=== PATIENT | female | born 1970 | race Asian ===

== ENCOUNTER 2024-06-27 14:15 | Outpatient (AMB) | payer OTHER, SELFPAY ==
--- NOTE | 2024-06-27 14:27 | A.OFFPC_ITS ---
Vital Signs 06/27/24 14:38 Height 4 ft 11.84 in Weight 160 lb BMI 31.4 BP 122/84 Blood Pressure Location Rt brachial Position Sitting Respiration 14 Pulse 77 Pulse Source Pulse Oximeter Pulse Oximetry (%) 98 Oxygen Delivery Method Room Air Intake Visit Reasons: Est. Care Intake Note: New patient visit Allergies No Known Allergies Allergy (Verified 06/27/24 14:28) Medication List - Last Reconciled 06/27/24 by Roselyn Mosley PA-C atorvastatin 20 mg PO DAILY cholecalciferol (vitamin D3) (Vitamin D3) 50 mcg PO DAILY glipizide mg PO BID levothyroxine mcg PO DAILY lisinopril 2.5 mg PO DAILY loratadine (Allergy Relief (loratadine)) 10 mg PO DAILY metformin 1,000 mg PO BID Tobacco use date assessed: 06/27/24 Dental Screening Dental Screen Date: 06/27/24 Did you have a dental visit in the last 12 months?: Yes Was dental information given to patient?: Patient declined HPI Est. Care HPI Details patient is a 54-year-old female who presents today to [facility]. She is transferring from [facility]. She has a significant past medical history of hypertension, hyperlipidemia, diabetes , hypothyroidism, vitamin d deficiency and allergies. She was last seen about 6 months ago. 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 She states that it feels like it comes from the shoulder and runs down her arm. At times it comes from the elbow. The pain is worse with certain movements. The pain is described as a burning pain. No neck pain or weakness. She denies any trauma. She has seen ortho in the past and states she was given an elbow strap and PT. She felt that the elbow brace and wrist brace were helpful at time. Endo: dm- Last A1c was approx 7 per pt. dx around 2009. Never had DM education. Denies any hypoglycemic events. She checks bs about 1-2 a week. No sx of hyper/hypoglycemia. BS are around 230 whenc she checks. She is currently on metformin 1000 mg twice a day and glipizide 5 mg bid. hypothyroid- last TSH was WNL (does not know the number). Currently on levothyroxine. Does not understand why she is on this medication. CV: Blood pressure today in the office is 122/84. She is currently on lisinopril 2.5 mg daily. Cholesterol is managed with atorvastatin 20 mg. 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 1. Little interest or pleasure in doing things: not at all 2. Feeling down, depressed, or hopeless: not at all 3. Trouble falling or staying asleep, or sleeping too much: not at all 4. Feeling tired or having little energy: not at all 5. Poor appetite or overeating: not at all 6. Feeling bad about yourself - or that you are a failure or have let yourself or your family down: not at all 7. Trouble concentrating on things, such as reading the newspaper or watching television: not at all 8. Moving or speaking so slowly that other people could have noticed. Or the opposite - being so fidgety or restless that you have been moving around a lot more than usual: not at all 9. Thoughts that you would be better off or of hurting yourself in some way: not at all Total score: 0 Depression Screening Interpretation: Negative Depression Screening Done: Yes 67719 - PHQ-9 Billing: Yes Source: Developed by Drs. Jarrod Gonzales, Dannielle Lake, Sam Celestin and colleagues, with an educational kristofer from [employer]. Thrive Questionnaire Date Thrive assessed: 06/27/24 I am a: Patient What is your living situation today?: I choose not to answer this question Within the past 12 months, did the food you bought not last and you didn't have the money to get more?: I choose not to answer this question Within the past 12 months, did you worry whether your food would run out before you got money to buy more?: I choose not to answer this question Do you have trouble paying for medicines?: No Do you have trouble getting transportation to medical appointments?: I choose not to answer this question Do you have trouble paying your heating and electricity bill?: I choose not to answer this question Do you have trouble taking care of your child, family member or friend?: I choose not to answer this question Do you have trouble with day-to-day activities such as bathing, preparing meals, shopping, managing finances, etc.?: I choose not to answer this question Are you currently unemployed and looking for a job?: I choose not to answer this question Are you interested in more education?: I choose not to answer this question Please select the resources that you would like help with: None THRIVE Score: 0 BRAEDEN-7 AMB Questionnaire BRAEDEN-7 Date BRAEDEN - 7 assessed: 06/27/24 Feeling nervous, anxious, or on edge: 0 = Not at all Not being able to stop or control worryin = Not at all Worrying too much about different things: 0 = Not at all Trouble relaxin = Not at all Being so restless that it is hard to sit still: 0 = Not at all Becoming easily annoyed or irritable: 0 = Not at all Feeling afraid as if something awful might happen: 0 = Not at all Total BRAEDEN-7 score (0-4 normal; 5-9 mild; 10-14 moderate; 15-21 severe): 0 Source: Developed by Drs. Jarrod Gonzales, Dannielle Lake, Sam Celestin and colleagues, with an educational kristofer from [employer]. BRAEDEN-7 Assessment Billing BRAEDEN-7 Assessment Tool: BRAEDEN-7 Assessment 85477 Physical exam (Primary Care) Depression Screening Interpretation: Negative Thrive Assessment: Date of Thrive Assessment Date Thrive assessed 06/27/24 06/27/24 14:16 Const Orientation/consciousness: patient oriented x3 HENMT Ears: hearing grossly normal bilaterally Neck Thyroid: Thyroid normal Lymphatic: no lymphadenopathy noted Resp Auscultation: clear to auscultation bilaterally Cardio Rate: regular rate Rhythm: regular rhythm Heart sounds: S1 normal heart sound present and S2 normal heart sound present GI Inspection: Yes normal to inspection Palpation (GI): Soft to palpation and Other GI palpation findings present (nontender, no cva tenderness) Auscultation: normoactive bowel sounds Rectal Exam - Female: deferred Skin General skin exam: no rashes or lesions noted Neuro General: patient oriented x3, gait normal and no focal motor deficits Coding Level of Care Code New Pt Level 5 (38253) Complex EM visit Add On G2211 Diagnoses Dyslipidemia E78.5 Uncontrolled type 2 diabetes mellitus with hyperglycemia, without long-term current use of insulin E11.65 HTN (hypertension) I10 Hypothyroid E03.9 Left shoulder pain M25.512 Left elbow pain M25.522 Additional Codes BRAEDEN-7 Assessment Billing - BRAEDEN-7 Assessment Tool: BRAEDEN-7 Assessment 86599 ([id number]) PHQ-9 - 93080 - PHQ-9 Billing: Yes ([id number]) Assessment & Plan Assessment & Plan (1) Dyslipidemia: Code(s): E78.5 - Hyperlipidemia, unspecified Category: Medical Plan: continue atorvastatin will check lipids and lfts (2) Uncontrolled type 2 diabetes mellitus with hyperglycemia, without long-term current use of insulin: Code(s): E11.65 - Type 2 diabetes mellitus with hyperglycemia Category: Medical Plan: continue glipizide and metformin will start trulicity. discussed risks and benefits and adverse effects such as n/v, Pancreatitis and increased risk of thyroid cancer. We reviewed the differences between type 1 and type 2 diabetes. Signs and symptoms of hyper and hypoglycemia that would require emergent medical treatment. She does have testing supplies at home. (3) HTN (hypertension): Code(s): I10 - Essential (primary) hypertension Category: Medical Plan: wnl continue current treatment plan (4) Hypothyroid: Code(s): E03.9 - Hypothyroidism, unspecified Category: Medical Plan: tsh ordered today continue levothyroxine We discussed hypothyroidism. (5) Left shoulder pain: Code(s): M25.512 - Pain in left shoulder Category: Medical Plan: see below (6) Left elbow pain: Code(s): M25.522 - Pain in left elbow Category: Medical Plan: xrays ordered referral to ortho Plan 75 minutes was spent today in face to face time discussing past medical history, current medications, health maintenance and new concerns. mammogram ordered colonoscopy ordered Orders: Orders MM screening mammo BI Today Z12.31 - Encounter for screening mammogram for malignant neoplasm of breast Complete Blood Count Auto Diff Today E03.9 - Hypothyroidism, unspecified, E11.65 - Type 2 diabetes mellitus with hyperglycemia, E78.5 - Hyperlipidemia, unspecified, I10 - Essential (primary) hypertension Comprehensive [place]. Panel Fast Today E03.9 - Hypothyroidism, unspecified, E11.65 - Type 2 diabetes mellitus with hyperglycemia, E78.5 - Hyperlipidemia, unspecified, I10 - Essential (primary) hypertension Hemoglobin A1c Today E03.9 - Hypothyroidism, unspecified, E11.65 - Type 2 diabetes mellitus with hyperglycemia, E78.5 - Hyperlipidemia, unspecified, I10 - Essential (primary) hypertension, R73.01 - Impaired fasting glucose TSH reflex Free T4 Today E03.9 - Hypothyroidism, unspecified, E11.65 - Type 2 diabetes mellitus with hyperglycemia, E78.5 - Hyperlipidemia, unspecified, I10 - Essential (primary) hypertension Lipid Panel Today E03.9 - Hypothyroidism, unspecified, E11.65 - Type 2 diabetes mellitus with hyperglycemia, E78.5 - Hyperlipidemia, unspecified, I10 - Essential (primary) hypertension Microalbumin, Random (w Creat) Today E03.9 - Hypothyroidism, unspecified, E11.65 - Type 2 diabetes mellitus with hyperglycemia, E78.5 - Hyperlipidemia, unspecified, I10 - Essential (primary) hypertension XR DEXA axial skeleton Today E03.9 - Hypothyroidism, unspecified, Z78.0 - Asymptomatic menopausal state XR shoulder LT min 2V Today M25.512 - Pain in left shoulder, M25.522 - Pain in left elbow XR elbow LT min 3V Today M25.512 - Pain in left shoulder, M25.522 - Pain in left elbow Referrals MOTH EXTERMINATOR Referral Z01.419 - Encounter for gynecological examination (general) (routine) without abnormal findings Medications: New metformin 1,000 mg PO BID 180 tabs 1RF dulaglutide (Trulicity) 0.75 mg (0.5 mL) subcut QWEEK 2 mL 3RF atorvastatin 20 mg PO DAILY 90 tabs 1RF glipizide 5 mg PO BID 180 tabs 1RF lisinopril 2.5 mg PO DAILY 90 tabs 1RF levothyroxine 50 mcg PO DAILY 90 tabs 1RF
[2024-06-27 14:38] VITALS: BP 122/84; PULSE 77; RESP 14; O2SAT 98; BMI 31.4
--- OUTSIDE RECORDS SUMMARY | 2024-06-27 18:08 | XMS_ITS | Clinical Summary ---
Author Organization [facility] Address [address] [place] [address] Phone Care Team Providers Care Switchboard Operator Helper Name Role Phone Rosa Hanson Primary Care Provider [phone] Social History Tobacco Use Types Packs/Day Years Used Date Smoking Tobacco: Never Assessed Comments Unknown Sex and Gender Information Value Date Recorded Sex Assigned at Not on file Legal Sex Female 2:53 PM EST Gender Identity Not on file Sexual Orientation Not on file Plan of Treatment Upcoming Encounters Date Type Department Care Team (Late st Contact Info) Description 08/21/2024 2:00 PM EDT Appointment [facility] Endoscopy [address] [place] [id number] Holger Corea MD [address] [place] [id number] Health Maintenance Due Date Last Done Comments DTaP,Tdap,and Td Vaccines (1 - Tdap) 1991 Hepatitis B Vaccines (1 of 3 - 19+ 3-dose series) 1991 Cervical Cancer Screening: P ap Smear 1993 Breast Cancer Screening 05/14/2021 05/14/2019 Pneumococcal Vaccine: 50+ Ye ars (1 of 1 - PCV) 2022 Zoster Vaccines (1 of 2) 2022 COVID-19 Vaccine ( - 2023-2 5 season) 2023 Influenza Vaccine (#1) 2023 Colorectal Cancer Screening: Colonoscopy 03/10/2024 Depression Screening 03/10/2024 HIV Screening 03/10/2024 Hepatitis C Screening 03/10/2024 Social Influencers of Health Screening 03/10/2024 HIB Vaccines Aged Out No longer eligi ble based on patient's age to complete this topic HPV Vaccines Aged Out No longer eligi ble based on patient's age to complete this topic Hepatitis A Vaccines Aged Out No long er eligible based on patient's age to complete this topic IPV Vaccines Aged Out No longer eligi ble based on patient's age to complete this topic MMR Vaccines Aged Out No longer eligi ble based on patient's age to complete this topic Meningococcal ACWY Vaccine Aged Out N o longer eligible based on patient's age to complete this topic Meningococcal B Vacine Aged Out No lo nger eligible based on patient's age to complete this topic Pneumococcal Vaccine: Pediat rics (0 to 5 Years) and At-Risk Patients (6 to 64 Years) Aged Out No longer eligi ble based on patient's age to complete this topic RSV Immunization Patients Un anastasiia 20 months Aged Out No longer eligible b ased on patient's age to complete this topic Varicella Vaccines Aged Out No longer eligible based on patient's age to complete this topic Procedures Procedure Name Priority Date/Time Associated Diagnosis Comments [facility] SCREENING DIGITAL Routine 05/14/2019 1:37 PM EST Encounter for screening mammogram for malignant neoplasm of breast from Last 3 Months or Most Recently Relevant to Health Maintenance Results * [facility] SCREENING DIGITAL (05/14/2019 1:37 PM EST) Anatomical Region Laterality Modality Mammography 05/14/2019 10:2 2 AM EST Narrative 05/14/2019 1:37 PM EST [facility] Diagnostic Imaging Department [address] [place] [address] Patient: ??RADHA,MAN M ?/Age/Sex: 1970 - Unit#: ??[id number] ? Location/Status: ??SPDIMAM/REG CLI ? Mnemonic/Ordering Site: ??DIGSC/SPMAM Ordering Physician: ??SHIVAM MERCER Peter Screening Digital - 05/14/19 - 1045 History: Bilateral breast cancer screening. Technique: Bilateral digital mammography. Conventional CC and MLO projections with tomosynthesis MLO views and computer aided detection. Findings: Comparison: Radiology and Imaging incorporated [facility] 07/04/2018 and 05/12/2017. Breast tissue is mostly fatty replaced (category a density) bilaterally (as calculated by [employer] software). ??There are benign calcifications bilaterally. ?? There is no suspicious group of microcalcification, no suspicious mass, architectural distortion or suspicious asymmetry. Impression: ??No evidence of malignancy. BIRADS category 2, benign findings, 3342F 54258, [address]281 Note: Patient information entered ??into a reminder system with a target due date for the next mammogram; PQRI II 9867G Dictating Physician: ??BOY GARZA MD Electronically Signed by: ??BOY GARZA MD Dic Date/Time: ??05/14/19 1336 Sign date/Time: ??05/14/19 1337 Procedure Note Boy Garza - 04/06/2022 [facility] Diagnostic Imaging Department [address] [place] [address] Patient: JERODVINCENTMARTIN /Age/Sex: 1970 - 49 - F Unit#: [id number] Location/Status: SPDIMAM/REG CLI [facility] Ordering Physician: SHIVAM MERCER Peter Screening Digital - 05/14/19 - 1045 History: Bilateral breast cancer screening. Technique: Bilateral digital mammography. Conventional CC and MLOprojections with tomosynthesis MLO views and computer aided detection. Findings: Comparison: Radiology and Imaging incorporated [facility] 07/04/2018 and 05/12/2017. Breast tissue is mostly fatty replaced (category a density) bilaterally(as calculated by [employer] software). There are benigncalcifications bilaterally. There is no suspicious group of microcalcification, nosuspicious mass, architectural distortion or suspicious asymmetry. Impression: No evidence of malignancy. BIRADS category 2, benign findings, 3342F 08117, [address]52 Note: Patient information entered into a reminder system with a targetdue date for the next mammogram; PQRI II 7083F Dictating Physician: BOY GARZA MD Electronically Signed by: BOY GARZA MD Dic Date/Time: 05/14/19 1336 Sign date/Time: 05/14/19 1337 Result [facility] Shivam GOLDEN IMG BI PROCEDURES Final Result from Last 3 Months or Most Recently Relevant to Health Maintenance Insurance [facility] PUBLIC PLANS MEDICAID - [place] Care Teams Switchboard Operator Helper Relationship Specialty Start Date End Date Rosa Hanson PCP - General 11/22/23
--- OUTSIDE RECORDS SUMMARY | 2024-06-27 18:08 | XMS_ITS | Clinical Summary ---
Author Organization [facility] Address [address] [place] [address] Care Team Providers [employer] Custodian Name Role Phone Rosa Hanson NP Primary Care Provider [phone] Source Comments PLEASE NOTE, if this patient is a minor, it may be UNLAWFUL to discuss sensitive information that is contained in these records (such as FAMILY PLANNING, MENTAL HEALTH or SUBSTANCE ABUSE) with the minor patient's parent or other person without the patient's specific authorization.[facility] Allergies No known active allergies Medications blood-glucose meter kit (FREESTYLE LITE METER) monitoring kitIndications: Uncontrolled type 2 diabetes mellitus without complication, without long-term current use of insulin once daily Dx. E11.65 - Blood sugar check daily and prn 1 Kit 7 Active alcohol swabsIndication s:Type 2 diabetes mellitus without complication, without long-term current use of insulin ([facility]) Dx. E11.65 - Blood sugar check daily 100 Each 11 3 Active blood sugar diagnostic (FREESTYLE TEST) stripsIndicatio ns:Type 2 diabetes mellitus without complication, without long-term current use of insulin ([facility]) Dx. E11.65 - Blood sugar check daily . FREESTYLE LITE Test strips 100 Each 11 3 Active lancetsIndicati ons:Type 2 diabetes mellitus without complication, without long-term current use of insulin ([facility]) Dx. E11.65 - Blood sugar check daily FREESTYLE LANCETS 100 Each 11 3 Active latanoprost (XALATAN) 0.005 % ophthalmic solutionIndicat ions:Narrow angle glaucoma suspect of both eyes INSTILL 1 DROP IN BOTH EYES EVERY EVENING 2.5 mL 3 3 Active diphenhydrAMINE (BENADRYL) 25 mg capsuleIndicati ons:Urticaria Take 1 Capsule by mouth every 6 (six) hours as needed for itching 60 Capsule 4 Active lisinopriL 2.5 mg tabletIndicatio ns:Prescription refill,Type 2 diabetes mellitus without complication, without long-term current use of insulin ([facility]) Take 1 Tablet by mouth once daily 90 Tablet 1 4 Active loratadine (CLARITIN) 10 mg tabletIndicatio ns:Generalized pruritus Take 1 Tablet by mouth once daily as needed for allergies 90 Tablet 1 4 Active atorvastatin (LIPITOR) 20 mg tabletIndicatio ns:Prescription refill Take 1 Tablet by mouth once daily 90 Tablet 1 4 Active glipiZIDE (GLUCOTROL) 5 mg tabletIndicatio ns:Prescription refill,Type 2 diabetes mellitus without complication, without long-term current use of insulin ([facility]) Take 1 Tablet by mouth 2 (two) times daily before a meal 180 Tablet 1 4 Active metFORMIN (GLUCOPHAGE) 1,000 mg tabletIndicatio ns:Prescription refill,Type 2 diabetes mellitus without complication, without long-term current use of insulin ([facility]) Take 1 Tablet by mouth 2 (two) times daily with a meal 180 Tablet 1 4 Active SITagliptin phosphate (JANUVIA) 100 mg tablet Take 1 Tablet by mouth once daily 90 Tablet 1 4 Active levothyroxine 50 mcg tabletIndicatio ns:Prescription refill Take 1 Tablet by mouth once daily 90 Tablet 1 4 Active cholecalciferol (VITAMIN D-3) 50 mcg (2,000 unit) capsuleIndicati ons:Prescriptio n refill TAKE 1 CAPSULE BY MOUTH EVERY DAY 150 Capsule 4 4 Active Active Problems Problem Noted Date Diagnosed Date Class 1 obesity due to exces s calories with serious comorbidity and body mass index (BMI) of 30.0 to 30.9 in adult 11/21/2023 Astigmatism of both eyes 07/04/2015 Overview (07/04/2015): As per eye examination done 06/15/15 @ [facility].Dr. Carmela Cheung Pinguecula of both eyes 07/04/2015 Overview (07/04/2015): As per eye examination done 06/15/15 @ [facility].Dr. Carmela Cheung Presbyopia 07/04/2015 Overview (07/04/2015): As per eye examination done 06/15/15 @ [facility].Dr. Carmela Cheung Uncontrolled type 2 diabetes mellitus with hyperglycemia ([facility]) 12/24/2014 Overview (12/24/2014): Lab Results Component Value Date HGBA1C 6.8* 12/24/2014 Primary hypertension 02/05/2013 Overview (07/15/2021): [facility] 06/11/16- No pulmonary embolus. Diet controlled currently Hypothyroidism 02/05/2013 Vitamin D deficiency disease 02/05/2013 Immunizations Name Administration Dates Next Due Flu, Adjuvant, 65y+ (Fluad) 01/17/2020 Flu, Preservative Free 03/17/2021,2019,04/03/2019,04/26 Hep B, Adult/Adol (ENERGIX/RECOMBIVAX) 2,09/08/2011,08/09/2011 INFLUENZA, SEASONAL, INJECTABLE 02/22/2016,01/30,04/11/2012 INFLUENZA, SEASONAL, INJECTA BLE, PRESERVATIVE FREE 02/05/2013 MMR (MMR II/Priorix) 07/16/2011,03/01/2011 Moderna COVID-19 Vaccine, re d cap blue label, 12+ Primary Series 09/02/2020,08/01/2020 PNEUMOCOCCAL CONJUGATE PCV 2 0 (Prevnar) 03/22/2023 PNEUMOCOCCAL POLYSACCHARIDE PPV23 05/31/2012 PPD 02/13/2013 TDAP 07/21/2021,07/06/2011,03/01/2011 ZOSTER VACCINE, RECOMBINANT (SHINGRIX) 3,12/15/2022 Family History Relation Name Status Comments Brother 2 Alive Father Mother Sister 1 Alive Social History Tobacco Use Types Packs/Day Years Used Date Smoking Tobacco: Never Smokeless Tobacco: Never Chew Tobacco Cessation:Counseling Given: Not Answered Alcohol Use Standard Drinks/Week Comments No 0 (1 standard drink = 0.6 oz pur e alcohol) Social Connections Answer Date Recorded Connectedness 1 09/26/2023 Financial Resource Strain Answer Date R ecorded Financial Resource Strain 1 2023 Stress Answer Date Recorded Stress 1 09/26/2023 Physical Activity Answer Date Recorded Physical Activity 0 12/08/2018 Food Insecurity Answer Date Recorded Food 1 09/26/2023 Transportation Needs Answer Date Record ed Transportation 1 09/26/2023 Housing Stability Answer Date Recorded Housing 1 09/26/2023 Safety and Environment Answer Date Jose rded Safety 1 09/26/2023 Utilities Answer Date Recorded Utilities 1 09/26/2023 Employment Answer Date Recorded Stress 0 07/05/2021 Comments No Sex and Gender Information Value Date Recorded Sex Assigned at Female 04/26/2017 11:09 AM PST Legal Sex Female 11:36 AM PDT Gender Identity Female 04/26/2017 11:09 AM PST Sexual Orientation Straight 04/26/2017 11 :09 AM PST Occupation Industry Job Start Date Job End Date [employer] Not on file Not on file Not on file Last Filed Vital Signs Vital Sign Reading Time Taken Comments Blood Pressure 122/74 09/26/2023 8:51 AM EDT Pulse 61 09/26/2023 8:51 AM EDT Temperature 36.8 ??C (98.2 ??F) 09/26/2023 8:51 AM ED T Respiratory Rate 18 09/26/2023 8:51 AM EDT Oxygen Saturation 98% 09/26/2023 8:51 AM EDT Inhaled Oxygen Concentration - - Weight 74.4 kg (164 lb) 10/04/2023 9:07 AM EDT Height 157.5 cm (5' 2 ) 10/04/2023 9:07 AM EDT Body Mass Index 30 10/04/2023 9:07 AM EDT Plan of Treatment Health Maintenance Due Date Last Done Comments Dental Examination [address] Colonography 2017 Colonoscopy 2017 Fecal DNA 2017 Flexible Sigmoidoscopy 2017 Retinopathy Screening 05/31/2018 05/31/2017 (Managed by Outside Provider), 06/15/2015 Breast Cancer Screening (Mammogram) 05/14/2021 05/14/2019, 05/14/2019, 07/04/2018, Additional history exists Colorectal Cancer Screening 10/05/2023 FIT/gFOBT 10/05/2023 10/04/2022 Diabetes HbA1c 12/27/2023 09/26/2023, 12/0 09/2022, 09/28/2022, Additional history exists Diabetes Foot Exam 03/22/2024 03/22/2023, 0 12/15/2022, 11/18/2022, Additional history exists Alcohol and Drug Screen 2024 06/22/19 24, 09/28/2022, 07/15/2021, Additional history exists Depression Annual Screen 2024 024, 06/22/2023, 11/02/2017 Pap Smear 06/17/2024 06/17/2021, 12/24/2014 Annual Preventive Care Visit 09/25/202402/2024, 12/15/2022, 12/16/2020, Additional history exists Diabetes Microalbumin (w/Creatinine) 09/25/2024 09/26/2023, 06/02/2022, 12/23/2020, Additional history exists Lipid Screening 09/25/2024 09/26/2023, 05/18, 12/23/2020, Additional history exists Serum Creatinine 09/25/2024 09/26/2023, , 06/02/2022, Additional history exists TSH Monitoring 09/25/2024 09/26/2023, 12/0 09/2022, 09/28/2022, Additional history exists Tobacco Screening 09/25/2024 09/26/2023, , 12/15/2022 Cervical Cancer Screening 06/17/2026 Pap + HPV 06/17/2026 06/17/2021 Imm-DTaP/Tdap/Td (4 - Td or Tdap) 07/22/2031 07/21/2021, 07/06/2011, 03/01/2011 Imm-Hepatitis B Completed 02/09/2012, 08/16, 08/09/2011 HIV Screening Completed 12/23/2020 Hepatitis C Screening Completed 12/23/2020, 015 Imm-Pneumococcal Completed 03/22/2023, 05/31/2012 Imm-Zoster, Recombinant Completed 03/22/2023, 12/15 [id number] Completed 01/17/2024, 01/15, 04/06/2021, Additional history exists Imm-Influenza Completed 01/17/2024, 02/17, 03/17/2021, Additional history exists Cervical Ablation/Cold-Knife Conization Discontinued Cervical Cryotherapy Discontinued Colposcopy Discontinued Endometrial Biopsy Discontinued Excision/Leep Discontinued HPV Genotyping Discontinued Vaginal Pap Discontinued Vulvoscopy Discontinued Procedures Procedure Name Priority Date/Time Associated Diagnosis Comments THYROID CASCADING REFLEX PANEL Routine 09/26/2023 9:38 AM EDT Uncontrolled type 2 diabetes mellitus with hyperglycemia (HCC-CMS) COMPREHENSIVE METABOLIC PANEL Routine 09/26/2023 9:38 AM EDT Uncontrolled type 2 diabetes mellitus with hyperglycemia (HCC-CMS) LIPID PANEL Routine 09/26/2023 9:38 AM EDT Uncontrolled type 2 diabetes mellitus with hyperglycemia ([facility]) MICROALBUMIN/CREATININE RATIO, URINE, RANDOM Routine 09/26/2023 9:38 AM EDT Uncontrolled type 2 diabetes mellitus with hyperglycemia ([facility]) HEMOGLOBIN GLYCOSYLATED A1C Routine 09/26/2023 9:38 AM EDT Uncontrolled type 2 diabetes mellitus with hyperglycemia ([facility]) FECAL GLOBIN BY IMMUNOCHEMISTRY (FIT) Routine 10/04/2022 8:00 PM EDT Colon cancer screening THIN PREP IMAGE PAP + HPV RNA E6/E7 W/RFLX HPV 16, 18/45 Routine 06/17/2021 10:13 AM EST Cervical cancer screening HIV 1/2 AG & AB W/RFLX (4TH GEN) Routine 12/23/2020 10:01 AM EDT Screening for viral disease HEPATITIS C AB W/RFLX HCV RNA, QT, RT PCR Routine 12/23/2020 10:01 AM EDT Screening for viral disease MAMMOGRAM BI-RADS, ABSTRACTED Routine 05/14/2019 1:59 PM EST from Last 3 Months or Most Recently Relevant to Health Maintenance Results * THYROID CASCADING REFLEX PANEL (09/26/2023 9:38 AM EDT) TSH 1.36 0.40 - 4.50 mIU/L [facility] Comment: ?Reference Range ?> or = 20 Years ??0.40-4.50 ? Ranges ?First trimester ?0.26-2.66 ?Second trimester ?? 0.55-2.73 ?Third trimester ?0.43-2.91 Blood Blood / Unknown 09/26/2023 9 :38 AM EDT 09/26/2023 9:38 AM EDT Rosa Hanson MOCCASIN SEWER LAB - BLOOD DRAW Edited Resu lt - Final [facility] [address] [address], [employer] [address] [address] * MICROALBUMIN/CREATININE RATIO, URINE, RANDOM (09/26/2023 9:38 AM EDT) CREATININE, RANDOM URINE 79 20 - 275 mg/dL [facility] MICROALBUMIN 0.2 mg/dL [employer] Comment: Reference Range Not established MICROALBUMIN/CREA TININE RATIO, RANDOM URINE 3 <30 mg/g creat [facility] Comment: The ADA defines abnormalities in albumin excretion as follows: Albuminuria Category ?Result (mg/g creatinine) Normal to Mildly increased ?? <30 Moderately increased ? 30-299 Severely increased ? > OR = 300 The ADA recommends that at least two of three specimens collected within a 3-6 month period be abnormal before considering a patient to be within a diagnostic category. Urine Urine specimen / Unknown 09/26/2023 9:38 AM EDT 09/26/2023 9:38 AM EDT us Rosa Hanson NP LAB - NO BLOOD DRAW Final Re sult Performing Organization Address [facility] Co de Phone Number [facility] [address] [place] [address], [employer] [address] [address] * (ABNORMAL) HEMOGLOBIN GLYCOSYLATED A1C (09/26/2023 9:38 AM EDT) HEMOGLOBIN A1C 9.7(H) <5.7 % of total Hgb [facility] Comment: For someone without known diabetes, a hemoglobin A1c value of 6.5% or greater indicates that they may have diabetes and this should be confirmed with a follow-up test. For someone with known diabetes, a value <7% indicates that their diabetes is well controlled and a value greater than or equal to 7% indicates suboptimal control. A1c targets should be individualized based on duration of diabetes, age, comorbid conditions, and other considerations. Currently, no consensus exists regarding use of hemoglobin A1c for diagnosis of diabetes for children. ?? Blood Blood / Unknown 09/26/2023 9 :38 AM EDT 09/26/2023 9:38 AM EDT us Rosa Hanson NP LAB - BLOOD DRAW Edited Resu lt - Final Performing Organization Address [facility] Co de Phone Number [facility] [address] [address], [employer] [address] [address] * (ABNORMAL) LIPID PANEL (09/26/2023 9:38 AM EDT) Pathologist [facility] CHOLESTEROL, TOTAL 145 <200 mg/dL [facility] HDL CHOLESTEROL 49(L) > OR = 50 mg/dL [facility] TRIGLYCERIDES 163(H) <150 mg/dL [facility] LDL-CHOLESTEROL 72 99 mg/dL (calc) [facility] Comment: Reference range: <100 Desirable range <100 mg/dL for primary prevention; ?? <70 mg/dL for patients with CHD or diabetic patients with > or = 2 CHD risk factors. LDL-C is now calculated using the Renato calculation, which is a validated novel method providing better accuracy than the Friedewald equation in the estimation of LDL-C. Evan SS et al. VIVIAN. 2013;310(19): 5465-7311 (http://education.memory lane syndications/faq/GYH503) CHOL/HDLC RATIO 3.0 <5.0 (calc) [facility] NON-HDL CHOLESTEROL 96 <130 mg/dL (calc) [facility] Comment: For patients with diabetes plus 1 major ASCVD risk factor, treating to a non-HDL-C goal of <100 mg/dL (LDL-C of <70 mg/dL) is considered a therapeutic option. Blood Blood / Unknown 09/26/2023 9 :38 AM EDT 09/26/2023 9:38 AM EDT us Rosa Hanson NP LAB - BLOOD DRAW Final Resul t [facility] [address] [address], [facility] [address] [place] [address] * (ABNORMAL) COMPREHENSIVE METABOLIC PANEL (09/26/2023 9:38 AM EDT) Pathologist [facility] GLUCOSE 135(H) 65 - 99 mg/dL [facility] Comment: ?Fasting reference interval For someone without known diabetes, a glucose value >125 mg/dL indicates that they may have diabetes and this should be confirmed with a follow-up test. UREA NITROGEN (BUN) 10 7 - 25 mg/dL [facility] CREATININE (blood) 0.67 0.50 - 1.03 mg/dL [facility] EGFR 106 > OR = 60 mL/min/1. 73m2 [facility] BUN/CREATININE RATIO SEE NOTE: [facility] Comment: ?? Not Reported: BUN and Creatinine are within ?? reference range. ? SODIUM 141 135 - 146 mmol/L [facility] POTASSIUM 4.7 3.5 - 5.3 mmol/L [facility] [place] [employer] CHLORIDE 106 98 - 110 mmol/L [facility] CARBON DIOXIDE 26 20 - 32 mmol/L [facility] CALCIUM 9.6 8.6 - 10.4 mg/dL [facility] PROTEIN, TOTAL 7.2 6.1 - 8.1 g/dL [facility] ALBUMIN 4.1 3.6 - 5.1 g/dL [facility] GLOBULIN 3.1 1.9 - 3.7 g/dL (calc) [facility] ALBUMIN/GLOBULI N RATIO 1.3 1.0 - 2.5 (calc) [facility] BILIRUBIN, TOTAL 0.6 0.2 - 1.2 mg/dL [facility] ALKALINE PHOSPHATASE 68 37 - 153 U/L [facility] AST 30 10 - 35 U/L [facility] ALT 40(H) 6 - 29 U/L [facility] Blood Blood / Unknown 09/26/2023 9 :38 AM EDT 09/26/2023 9:38 AM EDT us Rosa Hanson MOCCASIN SEWER LAB - BLOOD DRAW Edited Resu lt - Final [facility] [address] [address], [employer] [address] [place] [address] * FECAL GLOBIN BY IMMUNOCHEMISTRY (FIT) (10/04/2022 8:00 PM EDT) FECAL GLOBIN BY IMMUNOCHEMISTRY See Note [facility] Comment: ??FECAL GLOBIN BY IMMUNOCHEMISTRY ?Micro Number: ?[id number] ??Test Status: ? Final ??Specimen Source: ?? Insure (tm) fobt test card ??Specimen Quality: ??Adequate ??Fecal Globin: ?Not Detected Stool Stool specimen / Unknown 10/04/2022 8:00 PM EDT 10/06/2022 3:24 AM EDT Blanca Rankin UTILITY SPECIALIST-C LAB - NO BLOOD DRAW Final Re sult [facility] [address] [place] [address], [facility] [address] [address] * THIN PREP IMAGE PAP + HPV RNA E6/E7 W/RFLX HPV 16, 18/45 (06/17/2021 10:13 AM EST) CLINICAL INFORMATION See Note [facility] Comment:Routine exam LMP See Note [facility] Comment:[id number] PREV. PAP See Note [facility] Comment:NONE GIVEN PREV. BX See Note [facility] Comment:NONE GIVEN SOURCE See Note [facility] Comment:Cervix STATEMENT OF ADEQUACY See Note [facility] Comment: Satisfactory for evaluation. Endocervical/transformation zone component present. INTERPRETATION/RESU LT See Note [facility] Comment:Negative for intraep ithelial lesion or malignancy. COMMENT See Note [facility] Comment: This Pap test has been evaluated with computer assisted technology. CVIR TECH See Note [facility] Comment: KEBEDE, CT(ASCP) CT screening location: [address] ??[address] COMMENT [facility] HPV MRNA E6/E7 Not Detected Not Detected [facility] Comment: Methodology: [employer]-Mediated Amplification This assay detects E6/E7 viral messenger RNA (mRNA) from 14 high-risk HPV types (16,18,31,33,35,39,45,51,52,56,58,59,66,68). The analytical performance characteristics of this assay have been determined by [employer]. The modifications have not been cleared or approved by the FDA. This assay has been validated pursuant to the CLIA regulations and is used for clinical purposes. For additional information, please refer to http://Powered Outcomes.Nexgence/faq/XQH023b4 (This link if provided for information/ educational purposes only.) Cervix Cervix uteri structure / Unknown 06/17/2021 10:13 AM EST 06/18/2021 3:22 AM EST Narrative [facility] - 06/21/2021 9:42 AM EST EXPLANATORY NOTE: The Pap is a screening test for cervical cancer. It is not a diagnostic test and is subject to false negative and false positive results. It is most reliable when a satisfactory sample, regularly obtained, is submitted with relevant clinical findings and history, and when the Pap result is evaluated along with historic and current clinical information. us Blanca GOLDEN-C LAB - NO BLOOD DRAW Final Re sult [facility] [address] [address], [facility] [address] [address] * HEPATITIS C AB W/RFLX HCV RNA, QT, RT PCR (12/23/2020 10:01 AM EDT) HEPATITIS C ANTIBODY NON-REACT MARKOS NON-REACT MARKOS [facility] SIGNAL TO CUT-OFF 0.03 <1.00 [facility] Comment: HCV antibody was non-reactive. There is no laboratory evidence of HCV infection. In most cases, no further action is required. However, if recent HCV exposure is suspected, a test for HCV RNA (test code 04430) is suggested. For additional information please refer to http://Powered Outcomes.Nexgence/faq/CON84r7 (This link is being provided for informational/ educational purposes only.) Blood Blood / Unknown 12/23/2020 1 0:01 AM EDT 12/23/2020 10:02 AM EDT Narrative [facility] - 12/25/2020 8:45 PM EDT FASTING:YES Blanca Massiel UTILITY SPECIALIST-C LAB - BLOOD DRAW Edited Resu lt - Final [facility] [address] [address], [facility] [address] [address] * HIV 1/2 AG & AB W/RFLX (4TH GEN) (12/23/2020 10:01 AM EDT) HIV AG/AB, 4TH GEN NON-REAC TIVE NON-REAC TIVE [facility] Comment: HIV-1 antigen and HIV-1/HIV-2 antibodies were not detected. There is no laboratory evidence of HIV infection. PLEASE NOTE: This information has been disclosed to you from records whose confidentiality may be protected by state law. ??If your state requires such protection, then the state law prohibits you from making any further disclosure of the information without the specific written consent of the person to whom it pertains, or as otherwise permitted by law. A general authorization for the release of medical or other information is NOT sufficient for this purpose. ?? For additional information please refer to http://education.Nexgence/faq/TKX000 (This link is being provided for informational/ educational purposes only.) The performance of this assay has not been clinically validated in patients less than 2 years old. Blood Blood / Unknown 12/23/2020 1 0:01 AM EDT 12/23/2020 10:02 AM EDT Narrative [facility] - 12/25/2020 8:45 PM EDT FASTING:YES Blanca Rankin UTILITY SPECIALIST-C LAB - BLOOD DRAW Edited Resu lt - Final [facility] [address] [address], [facility] [address],[place] [address] * MAMMOGRAM BI-RADS, ABSTRACTED (05/14/2019 1:59 PM EST) BI-RADS ASSESSMENT 1 - Negative: means that there is no significant or noticeable abnormality to report. BI-RADS FOLLOW-UP 1 - Routine Screening Anatomical Region Laterality Modality Other Impressions 05/14/2019 1:59 PM EST As per Umm no evidence of malignancy. us Provider Eliot PHAM MAMMO Final Result from Last 3 Months or Most Recently Relevant to Health Maintenance [place] D[place] [facility] Member Subscriber Plan / Payer ( fective 2019-Present) Name:Martin Lara Relation to Subscriber:Self Name:Martin Lara Payer ID:[id number] Type:Indemnity Address: [address] [address] [employer]ALTH SAF[employer]Y NET DENTAL Care Teams School Custodian Relationship Specialty Start Date End Date Rosa Hanson NP [address] [place] [address] PCP - General Internal Medicine 05/12/23
== END 2024-06-27 15:14 | disposition home or self-care (01) ==
LOC: HO.HMCFM 14:16
PROVIDERS: PCP Physician Assistant; Visit Provider Physician Assistant
DX: E78.5 Hyperlipidemia, unspecified (principal); E11.65 Type 2 diabetes mellitus with hyperglycemia; I10 Essential (primary) hypertension; E03.9 Hypothyroidism, unspecified; M25.512 Pain in left shoulder; M25.522 Pain in left elbow

== ENCOUNTER → 2024-06-27 14:15 | Outpatient (BNVA) | payer OTHER, SELFPAY | PROVIDERS: PCP Physician Assistant; Visit Provider Physician Assistant | DX: E78.5 Hyperlipidemia, unspecified (principal); E11.65 Type 2 diabetes mellitus with hyperglycemia; E03.9 Hypothyroidism, unspecified; I10 Essential (primary) hypertension; M25.512 Pain in left shoulder; M25.522 Pain in left elbow | CPT/HCPCS: 96127; 99202 ==

== ENCOUNTER → 2024-07-31 09:31 | Outpatient (BNVA) | payer OTHER, SELFPAY | PROVIDERS: PCP Physician Assistant; Visit Provider Physician Assistant ==

== ENCOUNTER 2024-08-01 09:16 | Outpatient (AMB) | payer OTHER, SELFPAY ==
--- NOTE | 2024-08-01 09:32 | MHC.PC.OV ---
Vital Signs 08/01/24 09:48 Height 4 ft 11.84 in Weight 162 lb BMI 31.8 BP 110/76 Blood Pressure Location Rt brachial Position Sitting Respiration 12 Pulse 72 Pulse Source Pulse Oximeter Intake Visit Reasons: dm, labs bp, needs 30 min Intake Note: Follow up. Commercial Field Inspector Required: Yes Commercial Field Inspector Language: Counts Include [facility] Commercial Field Inspector Name: Lenin Villa Allergies No Known Allergies Allergy (Verified 08/01/24 09:41) Medication List - Last Reconciled 08/01/24 by Roselyn Mosley PA-C atorvastatin 20 mg PO DAILY cholecalciferol (vitamin D3) (Vitamin D3) 50 mcg PO DAILY dulaglutide (Trulicity) 0.75 mg (0.5 mL) subcut QWEEK glipizide 5 mg PO BID levothyroxine 50 mcg PO DAILY lisinopril 2.5 mg PO DAILY loratadine (Allergy Relief (loratadine)) 10 mg PO DAILY metformin 1,000 mg PO BID Tobacco use date assessed: 08/01/24 Dental Screening Dental Screen Date: 06/27/24 HPI dm, labs bp, needs 30 min HPI Details Patient is a 54-year-old female who presents today for a follow up. She was supposed to get labs and imaging done prior to today's appointment but never did this. No acute concerns today Lenin Villa Endo: dm- Last A1c was 10.2. dx around 2009. Never had DM education. Denies any hypoglycemic events. She checks bs about 1-2 a week. Her blood sugars are all over the place from 150-250 . No sx of hyper/hypoglycemia.. She is currently on metformin 1000 mg twice a day and glipizide 5 mg bid. -never started the trulicity -not interested at this point in diabetic Education. hypothyroid- last TSH was WNL (does not know the number). Currently on levothyroxine. Does not understand why she is on this medication. CV: Blood pressure today in the office is 110/76. She is currently on lisinopril 2.5 mg daily. Cholesterol is managed with atorvastatin 20 mg. Mammo: many years ago - booked 09/05 Colonoscopy: never had- scheduled this summer Pap/Field Agronomist: overdue- was done by previous pcp- needs referral Bone density: never had, lmp 2019. 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 1. Little interest or pleasure in doing things: not at all 2. Feeling down, depressed, or hopeless: not at all 3. Trouble falling or staying asleep, or sleeping too much: not at all 4. Feeling tired or having little energy: not at all 5. Poor appetite or overeating: not at all 6. Feeling bad about yourself - or that you are a failure or have let yourself or your family down: not at all 7. Trouble concentrating on things, such as reading the newspaper or watching television: not at all 8. Moving or speaking so slowly that other people could have noticed. Or the opposite - being so fidgety or restless that you have been moving around a lot more than usual: not at all 9. Thoughts that you would be better off or of hurting yourself in some way: not at all Total score: 0 Depression Screening Interpretation: Negative Depression Screening Done: Yes 00450 - PHQ-9 Billing: Yes Source: Developed by Drs. Jarrod Gonzales, Dannielle Lake, Sam Celestin and colleagues, with an educational kristofer from [employer]. Thrive Questionnaire Date Thrive assessed: 08/01/24 I am a: Patient What is your living situation today?: I choose not to answer this question Within the past 12 months, did the food you bought not last and you didn't have the money to get more?: I choose not to answer this question Within the past 12 months, did you worry whether your food would run out before you got money to buy more?: I choose not to answer this question Do you have trouble paying for medicines?: No Do you have trouble getting transportation to medical appointments?: I choose not to answer this question Do you have trouble paying your heating and electricity bill?: I choose not to answer this question Do you have trouble taking care of your child, family member or friend?: I choose not to answer this question Do you have trouble with day-to-day activities such as bathing, preparing meals, shopping, managing finances, etc.?: I choose not to answer this question Are you currently unemployed and looking for a job?: I choose not to answer this question Are you interested in more education?: I choose not to answer this question Please select the resources that you would like help with: None THRIVE Score: 0 BRAEDEN-7 AMB Questionnaire BRAEDEN-7 Date BRAEDEN - 7 assessed: 06/27/24 Feeling nervous, anxious, or on edge: 0 = Not at all Not being able to stop or control worryin = Not at all Worrying too much about different things: 0 = Not at all Trouble relaxin = Not at all Being so restless that it is hard to sit still: 0 = Not at all Becoming easily annoyed or irritable: 0 = Not at all Feeling afraid as if something awful might happen: 0 = Not at all Total BRAEDEN-7 score (0-4 normal; 5-9 mild; 10-14 moderate; 15-21 severe): 0 Source: Developed by Drs. Jarrod Gonzales, Dannielle Lake, Sam Celestin and colleagues, with an educational kristofer from [employer]. BRAEDEN-7 Assessment Billing BRAEDEN-7 Assessment Tool: BRAEDEN-7 Assessment 66333 Physical exam (Primary Care) Vital Signs: Last Vital Signs Pulse 72 08/01/24 09:48 Resp 12 08/01/24 09:48 BP 110/76 08/01/24 09:48 BMI result Body Mass Index 31.8 Tobacco/Smoking Status: Tobacco use Status Tobacco use date assessed 08/01/24 08/01/24 09:43 Patient Tobacco Use Status Former Tobacco user 08/01/24 09:33 Tobacco use type Smokeless Tobacco (chewing 08/01/24 09:33 tobacco) e-Cigarette/Vaping Use Never Used 08/01/24 09:33 PHQ-9: PHQ-9 Score PHQ-9: Total score 0 08/01/24 10:32 Depression Screening Interpretation: Negative Thrive Assessment: Date of Thrive Assessment Date Thrive assessed 08/01/24 08/01/24 09:53 Const Orientation/consciousness: patient oriented x3 HENMT Ears: hearing grossly normal bilaterally Neck Thyroid: Thyroid normal Lymphatic: no lymphadenopathy noted Resp Auscultation: clear to auscultation bilaterally Cardio Rate: regular rate Rhythm: regular rhythm Heart sounds: S1 normal heart sound present and S2 normal heart sound present GI Inspection: Yes normal to inspection Palpation (GI): Soft to palpation and Other GI palpation findings present (nontender, no cva tenderness) Auscultation: normoactive bowel sounds Rectal Exam - Female: deferred Skin General skin exam: no rashes or lesions noted Neuro General: patient oriented x3, gait normal and no focal motor deficits Results AMB Hemoglobin A1c AMB Hemoglobin A1c 10.2 % Last Edit by Alysa Hernandez CMA on 08/01/24 10:33 Results Reviewed Results Reviewed: Laboratory Last Values Hgb A1c (Clinic) 10.2 % (4.0-6.0) H 08/01/24 10:32 Coding Level of Care Code Est Pt Level 4 (30874) Complex EM visit Add On G2211 Diagnoses Uncontrolled type 2 diabetes mellitus with hyperglycemia, without long-term current use of insulin E11.65 HTN (hypertension) I10 Hypothyroid E03.9 Dyslipidemia E78.5 Additional Codes BRAEDEN-7 Assessment Billing - BRAEDEN-7 Assessment Tool: BRAEDEN-7 Assessment 76889 ([id number]) PHQ-9 - 42513 - PHQ-9 Billing: Yes ([id number]) Assessment & Plan Assessment & Plan (1) Uncontrolled type 2 diabetes mellitus with hyperglycemia, without long-term current use of insulin: Code(s): E11.65 - Type 2 diabetes mellitus with hyperglycemia Category: Medical Plan: start trulicity as previously directed. reviewed risks/benefits and adverse effects. continue metformin and glipizide (2) HTN (hypertension): Code(s): I10 - Essential (primary) hypertension Category: Medical Plan: wnl continue current plan (3) Hypothyroid: Code(s): E03.9 - Hypothyroidism, unspecified Category: Medical Plan: advised to get labs (4) Dyslipidemia: Code(s): E78.5 - Hyperlipidemia, unspecified Category: Medical Plan: lipids and lfts are ordered continue atorvastatin Orders: Orders AMB Hemoglobin A1c Today E11.65 - Type 2 diabetes mellitus with hyperglycemia
[2024-08-01 09:48] VITALS: BP 110/76; PULSE 72; RESP 12; BMI 31.8
--- OUTSIDE RECORDS SUMMARY | 2024-08-01 10:27 | XMS_ITS | Clinical Summary ---
Author Organization [facility] Address [address] [place] [address] Phone Care Team Providers Care Index Editor Name Role Phone Rosa Hanson Primary Care Provider [phone] Social History Tobacco Use Types Packs/Day Years Used Date Smoking Tobacco: Never Assessed Comments Unknown Sex and Gender Information Value Date Recorded Sex Assigned at Not on file Legal Sex Female 2:53 PM EST Gender Identity Not on file Sexual Orientation Not on file Plan of Treatment Upcoming Encounters Date Type Department Care Team (Late st Contact Info) Description 08/21/2024 2:00 PM EDT Hospital Encounter [facility] Endoscopy [address] [place] [address] Ran High MD [address] [id number] Health Maintenance Due Date Last Done Comments DTaP,Tdap,and Td Vaccines (1 - Tdap) 1991 Hepatitis B Vaccines (1 of 3 - 19+ 3-dose series) 1991 Cervical Cancer Screening: P ap Smear 1993 Breast Cancer Screening 05/14/2021 05/14/2019 Pneumococcal Vaccine: 50+ Ye ars (1 of 1 - PCV) 2022 Zoster Vaccines (1 of 2) 2022 COVID-19 Vaccine ( - 2023-2 5 season) 2023 Colorectal Cancer Screening: Colonoscopy 03/10/2024 Depression Screening 03/10/2024 HIV Screening 03/10/2024 Hepatitis C Screening 03/10/2024 Social Influencers of Health Screening 03/10/2024 Influenza Vaccine (Season Ended) 2024 HIB Vaccines Aged Out No longer eligi [...] age to complete this topic Meningococcal B Vaccine Aged Out No l onger eligible based on patient's age to complete [...] Procedure Name Priority Date/Time Associated Diagnosis Comments [facility] SCREENING DIGITAL Routine 05/14/2019 1:37 PM EST Encounter for screening mammogram for malignant neoplasm of breast from Last 3 Months or Most Recently Relevant to Health Maintenance Results * [facility] SCREENING DIGITAL (05/14/2019 1:37 PM EST) Anatomical Region Laterality Modality Mammography 05/14/2019 10:2 2 AM EST Narrative 05/14/2019 1:37 PM EST [facility] Diagnostic Imaging Department [address] [place] [id number] Patient: ??RADHA,MAN M ?/Age/Sex: 1970 - Unit#: ??[id number] ? Location/Status: ??SPDIMAM/REG CLI ? Mnemonic/Ordering Site: ??DIGSC/SPMAM Ordering Physician: ??SHIVAM MERCER Peter Screening Digital - 05/14/19 - 1045 History: Bilateral breast cancer screening. Technique: Bilateral digital mammography. Conventional CC and MLO projections with tomosynthesis MLO views and computer aided detection. Findings: Comparison: Radiology and Imaging incorporated [facility] 07/04/2018 and 05/12/2017. Breast tissue is mostly fatty replaced (category a density) bilaterally (as calculated by [employer]odon[employer] software). ??There are benign calcifications bilaterally. ?? There is no suspicious group of microcalcification, no suspicious mass, architectural distortion or suspicious asymmetry. Impression: ??No evidence of malignancy. BIRADS category 2, benign findings, 3342F 31534, 02290 Note: Patient information entered ??into a reminder system with a target due date for the next mammogram; PQRI II 5885F Dictating Physician: ??BOY GARZA MD Electronically Signed by: ??BOY GARZA MD Dic Date/Time: ??05/14/19 1336 Sign date/Time: ??05/14/19 1337 Procedure Note Boy Garza - 04/06/2022 [facility] Diagnostic Imaging Department [address] [place] [address] Patient: RADHAMARTIN Acevedo /Age/Sex: 1970 - 49 - F Unit#: [id number] Location/Status: SPDIMAM/REG CLI [facility] Order[facility] Physician: SHIVAM MERCER Peter Screening Digital - 05/14/19 - 1045 History: Bilateral breast cancer screening. Technique: Bilateral digital mammography. Conventional CC and MLOprojections with tomosynthesis MLO views and computer aided detection. Findings: Comparison: Radiology and Imaging incorporated [facility] 07/04/2018 and 05/12/2017. Breast tissue is mostly fatty replaced (category a density) bilaterally(as calculated by [employer]odon[employer] software). There are benigncalcifications bilaterally. There is no suspicious group of microcalcification, nosuspicious mass, architectural distortion or suspicious asymmetry. Impression: No evidence of malignancy. BIRADS category 2, benign findings, 3342F 61006, 17111 Note: Patient information entered into a reminder system with a targetdue date for the next mammogram; PQRI II 7025F Dictating Physician: BOY GARZA MD Electronically Signed by: BOY GARZA MD Dic Date/Time: 05/14/19 1336 Sign date/Time: 05/14/19 1337 Result [facility] Shivam GOLDEN IMG BI PROCEDURES Final Result from Last 3 Months or Most Recently Relevant to Health Maintenance Insurance [employer] Care Teams Index Editor Relationship Specialty Start Date End Date Rosa Hanson PCP - General 11/22/23
--- OUTSIDE RECORDS SUMMARY | 2024-08-01 10:27 | XMS_ITS | Clinical Summary ---
Author Organization [facility] Address [address] [place] [address] Care Team Providers Care Commodities Trader Name Role Phone Rosa Hanson NP Primary Care Provider Source Comments PLEASE NOTE, if this patient [...] complication, without long-term current use of insulin ([facility]) Dx. E11.65 - Blood sugar check daily 100 Each 11 3 Active blood sugar diagnostic (FREESTYLE TEST) stripsIndicatio ns:Type 2 diabetes mellitus without complication, without long-term current use of insulin ([facility]) Dx. E11.65 - Blood sugar check daily . FREESTYLE LITE Test strips 100 Each 11 3 Active lancetsIndicati ons:Type 2 diabetes mellitus without complication, without long-term current use of insulin ([facility]) Dx. E11.65 - Blood sugar check daily [...] complication, without long-term current use of insulin ([facility]) Take 1 Tablet by mouth once daily [...] complication, without long-term current use of insulin ([facility]) Take 1 Tablet by mouth 2 (two) times daily before a meal 180 Tablet 1 4 Active metFORMIN (GLUCOPHAGE) 1,000 mg tabletIndicatio ns:Prescription refill,Type 2 diabetes mellitus without complication, without long-term current use of insulin ([facility]) Take 1 Tablet by mouth 2 (two) [...] As per eye examination done 06/15/15 @ [facility].Dr. Carmela Cheung Pinguecula of both eyes 07/04/2015 Overview (07/04/2015): As per eye examination done 06/15/15 @ [facility].Dr. Carmela Cheung Presbyopia 07/04/2015 Overview (07/04/2015): As per eye examination done 06/15/15 @ [facility].Dr. Carmela Cheung Uncontrolled type 2 diabetes mellitus with hyperglycemia ([facility]) 12/24/2014 Overview (12/24/2014): Lab Results Component Value Date HGBA1C 6.8* 12/24/2014 Primary hypertension 02/05/2013 Overview (07/15/2021): [facility] 06/11/16- No pulmonary embolus. Diet controlled currently Hypothyroidism 02/05/2013 Vitamin D deficiency disease 02/05/2013 Immunizations Immunization Administration Dates Next Due Flu, Adjuvant, 65y+ [...] Health Maintenance Due Date Last Done Comments Anxiety Screening 1970 Dental Examination [address] Colonography 2017 Colonoscopy 2017 Fecal DNA 2017 Flexible Sigmoidoscopy 2017 Retinopathy Screening 05/31/2018 05/31/2017 (Managed by Outside Provider), 06/15/2015 Breast Cancer Screening (Mammogram) 05/14/2021 05/14/2019, 05/14/2019, 07/04/2018, Additional history exists Colorectal Cancer Screening 10/05/2023 FIT/gFOBT 10/05/2023 10/04/2022 Diabetes HbA1c 12/27/2023 09/26/2023, 12/09/2022, 09/28/2022, Additional history exists Diabetes Foot Exam 03/22/2024 03/22/2023, 0 12/15/2022, 11/18/2022, Additional history exists Alcohol and Drug Screen 2024 06/22/19 24, 09/28/2022, 07/15/2021, Additional history exists Depression Annual Screen 2024 024, 06/22/2023, 11/02/2017 Pap Smear 06/17/2024 06/17/2021, 12/24/2014 Annual Preventive Care Visit 09/25/202402/2024, 12/15/2022, 12/16/2020, Additional history exists Lipid Screening 09/25/2024 09/26/2023, 05/18, 12/23/2020, Additional history exists Serum Creatinine 09/25/2024 09/26/2023, , 06/02/2022, Additional history exists TSH Monitoring 09/25/2024 09/26/2023, 1209/2022, 09/28/2022, Additional history exists Tobacco Screening 09/25/2024 09/26/2023, , 12/15/2022 Urine Albumin Creatinine Rat io Screening 09/25/2024 09/26/2023, 06/02/2022, 12/23/2020, Additional history exists Cervical Cancer Screening 06/17/2026 Pap + HPV 06/17/2026 06/17/2021 Imm-DTaP/Tdap/Td (4 - Td or Tdap) 07/22/2031 07/21/2021, 07/06/2011, 03/01/2011 Imm-Hepatitis B Completed 02/09/2012, 08/16, 08/09/2011 HIV Screening Completed 12/23/2020 Hepatitis C Screening Completed 12/23/2020, 015 Imm-Pneumococcal Completed 03/22/2023, 05/31/2012 Imm-Zoster, Recombinant Completed 03/22/2023, 12/15 [id number] Completed 01/17/2024, 01/15, 04/06/2021, Additional history exists Imm-Influenza Completed 01/17/2024, 02/17, 03/17/2021, Additional history exists Cervical Ablation/Cold-Knife Conization Discontinued Cervical Cryotherapy Discontinued Colposcopy Discontinued Endometrial Biopsy Discontinued Excision/Leep Discontinued HPV Genotyping Discontinued Vaginal Pap Discontinued Vulvoscopy Discontinued Procedures Procedure Name Priority Date/Time Associated Diagnosis Comments THYROID CASCADING REFLEX PANEL Routine 09/26/2023 9:38 AM EDT Uncontrolled type 2 diabetes mellitus with hyperglycemia ([facility]) COMPREHENSIVE METABOLIC PANEL Routine 09/26/2023 9:38 AM EDT Uncontrolled type 2 diabetes mellitus with hyperglycemia ([facility]) LIPID PANEL Routine 09/26/2023 9:38 AM EDT Uncontrolled type 2 diabetes mellitus with hyperglycemia ([facility]) MICROALBUMIN/CREATININE RATIO, URINE, RANDOM Routine 09/26/2023 9:38 AM EDT Uncontrolled type 2 diabetes mellitus with hyperglycemia ([facility]) HEMOGLOBIN GLYCOSYLATED A1C Routine 09/26/2023 9:38 AM EDT Uncontrolled type 2 diabetes mellitus with hyperglycemia ([facility]) FECAL GLOBIN BY IMMUNOCHEMISTRY (FIT) Routine 10/04/2022 [...] EDT) TSH 1.36 0.40 - 4.50 mIU/L [facility] Comment: ?Reference Range ?> or = 20 Years ??0.40-4.50 ? Ranges ?First trimester ?0.26-2.66 ?Second trimester ?? 0.55-2.73 ?Third trimester ?0.43-2.91 Blood Blood / Unknown 09/26/2023 9 :38 AM EDT 09/26/2023 9:38 AM EDT Rosa Hanson NP LAB - BLOOD DRAW Edited Resu lt - Final [facility] [address] [place] [id number], [facility] [address] [place] [phone] * MICROALBUMIN/CREATININE RATIO, URINE, RANDOM (09/26/2023 9:38 AM EDT) CREATININE, RANDOM URINE 79 20 - 275 mg/dL [facility] MICROALBUMIN 0.2 mg/dL [employer] [facility] Comment: Reference Range Not established MICROALBUMIN/CREA TININE RATIO, RANDOM URINE 3 <30 mg/g creat [facility] Comment: The ADA defines abnormalities in albumin [...] DRAW Final Re sult Performing Organization Address [facility] Co de Phone Number [facility] [address] [place] [address], [facility] [address] [place] [phone] * (ABNORMAL) HEMOGLOBIN GLYCOSYLATED A1C (09/26/2023 9:38 AM EDT) HEMOGLOBIN A1C 9.7(H) <5.7 % of total Hgb [facility] Comment: For someone without known diabetes, a [...] Resu lt - Final Performing Organization Address [facility] Co de Phone Number [facility] [address] [place] [address], [facility] [address] [place] [phone] * (ABNORMAL) LIPID PANEL (09/26/2023 9:38 AM EDT) CHOLESTEROL, TOTAL 145 <200 mg/dL [employer] [facility] HDL CHOLESTEROL 49(L) > OR = 50 mg/dL [employer] TRIGLYCERIDES 163(H) <150 mg/dL [employer] [facility] LDL-CHOLESTEROL 72 99 mg/dL (calc) [facility] Comment: Reference range: <100 Desirable range <100 mg/dL for primary prevention; ?? <70 mg/dL for patients with CHD or diabetic patients with > or = 2 CHD risk factors. LDL-C is now calculated using the Renato calculation, which is a validated novel method providing better accuracy than the Friedewald equation in the estimation of LDL-C. Evan SS et al. VIVIAN. 2013;310(19): 7396-7274 (http://education.Olo/faq/BPH425) CHOL/HDLC RATIO 3.0 <5.0 (calc) [facility] NON-HDL CHOLESTEROL 96 <130 mg/dL (calc) [employer] [facility] Comment: For patients with diabetes plus 1 major ASCVD risk factor, treating to a non-HDL-C goal of <100 mg/dL (LDL-C of <70 mg/dL) is considered a therapeutic option. Blood Blood / Unknown 09/26/2023 9 :38 AM EDT 09/26/2023 9:38 AM EDT Rosa Hanson NP LAB - BLOOD DRAW Final Resul t [facility] [address] [address], [employer] [address] [place] [address] * (ABNORMAL) COMPREHENSIVE METABOLIC PANEL (09/26/2023 9:38 AM EDT) GLUCOSE 135(H) 65 - 99 mg/dL [employer] [facility] Comment: ?Fasting reference interval For someone without known diabetes, a glucose value >125 mg/dL indicates that they may have diabetes and this should be confirmed with a follow-up test. UREA NITROGEN (BUN) 10 7 - 25 mg/dL [employer] CREATININE (blood) 0.67 0.50 - 1.03 mg/dL [facility] EGFR 106 > OR = 60 mL/min/1. 73m2 [facility] BUN/CREATININE RATIO SEE NOTE: [facility] Comment: ?? Not Reported: BUN and Creatinine are within ?? reference range. ? SODIUM 141 135 - 146 mmol/L [employer] [facility] POTASSIUM 4.7 3.5 - 5.3 mmol/L [facility] CHLORIDE 106 98 - 110 mmol/L [facility] CARBON DIOXIDE 26 20 - 32 mmol/L [facility] CALCIUM 9.6 8.6 - 10.4 mg/dL [facility] PROTEIN, TOTAL 7.2 6.1 - 8.1 g/dL [facility] ALBUMIN 4.1 3.6 - 5.1 g/dL [facility] GLOBULIN 3.1 1.9 - 3.7 g/dL (calc) [facility] ALBUMIN/GLOBULI N RATIO 1.3 1.0 - 2.5 (calc) [facility] BILIRUBIN, TOTAL 0.6 0.2 - 1.2 mg/dL [facility] ALKALINE PHOSPHATASE 68 37 - 153 U/L [facility] AST 30 10 - 35 U/L [facility] ALT 40(H) 6 - 29 U/L [employer] [facility] Blood Blood / Unknown 09/26/2023 9 :38 AM EDT 09/26/2023 9:38 AM EDT us Rosa Hanson CONTINUOUS YARN DYEING MACHINE OPERATOR LAB - BLOOD DRAW Edited Resu lt - Final [facility] [address] [address], [employer] [address] [phone] * FECAL GLOBIN BY IMMUNOCHEMISTRY (FIT) (10/04/2022 8:00 PM EDT) FECAL GLOBIN BY IMMUNOCHEMISTRY See Note [employer] [facility] Comment: ??FECAL GLOBIN BY IMMUNOCHEMISTRY ?Micro Number: ?[id number] ??Test Status: ? Final ??Specimen Source: ?? Insure (tm) fobt test card ??Specimen Quality: ??Adequate ??Fecal Globin: ?Not Detected Stool Stool specimen / Unknown 10/04/2022 8:00 PM EDT 10/06/2022 3:24 AM EDT Blanca Rankin GEOPHYSICAL SUPPORT SPECIALIST-C LAB - NO BLOOD DRAW Final Re sult [facility] [address] [place] [address], [employer] [address] [phone] * THIN PREP IMAGE PAP + HPV RNA E6/E7 W/RFLX HPV 16, 18/45 (06/17/2021 10:13 AM EST) CLINICAL INFORMATION See Note [facility] Comment:Routine exam LMP See Note [facility] Comment:[id number] PREV. PAP See Note [facility] Comment:NONE GIVEN PREV. BX See Note [facility] Comment:NONE GIVEN SOURCE See Note [facility] Comment:Cervix STATEMENT OF ADEQUACY See Note [facility] Comment: Satisfactory for evaluation. Endocervical/transformation zone component present. INTERPRETATION/RESU LT See Note [facility] Comment:Negative for intraep ithelial lesion or malignancy. COMMENT See Note [facility] Comment: This Pap test has been evaluated with computer assisted technology. LABORER DRYING DEPARTMENT See Note [facility] [employer] Comment: KEBEDE, CT(ASCP) CT screening location: [address] ??[address] COMMENT [facility] HPV MRNA E6/E7 Not Detected Not Detected [facility] Comment: Methodology: Camera Control Operator-Mediated Amplification This assay detects E6/E7 viral messenger RNA (mRNA) from 14 high-risk HPV types (16,18,31,33,35,39,45,51,52,56,58,59,66,68). The analytical performance characteristics of this assay have been determined by [employer]. The modifications have not been cleared or approved by the FDA. This assay has been validated pursuant to the CLIA regulations and is used for clinical purposes. For additional information, please refer to http://EadBox.Taskdoer/faq/FJV263v8 (This link if provided for information/ educational purposes only.) Cervix Cervix uteri structure / Unknown 06/17/2021 10:13 AM EST 06/18/2021 3:22 AM EST Narrative [employer] - 06/21/2021 9:42 AM EST EXPLANATORY NOTE: [...] - NO BLOOD DRAW Final Re sult [facility] [address] [address], [employer] [facility] [address] [address] * HEPATITIS C AB W/RFLX HCV RNA, QT, RT PCR (12/23/2020 10:01 AM EDT) HEPATITIS C ANTIBODY NON-REACT MARKOS NON-REACT MARKOS [employer] [facility] SIGNAL TO CUT-OFF 0.03 <1.00 [facility] Comment: HCV antibody was non-reactive. There is no laboratory evidence of HCV infection. In most cases, no further action is required. However, if recent HCV exposure is suspected, a test for HCV RNA (test code 79696) is suggested. For additional information please refer to http://EadBox.Taskdoer/faq/MDR21i4 (This link is being provided for informational/ educational purposes only.) Blood Blood / Unknown 12/23/2020 1 0:01 AM EDT 12/23/2020 10:02 AM EDT Narrative [employer] - 12/25/2020 8:45 PM EDT FASTING:YES us Blanca Massiel GEOPHYSICAL SUPPORT SPECIALIST-C LAB - BLOOD DRAW Edited Resu lt - Final [facility] [address] [address], [employer] [address],[place] [address] * HIV 1/2 AG & AB W/RFLX (4TH GEN) (12/23/2020 10:01 AM EDT) HIV AG/AB, 4TH GEN NON-REAC TIVE NON-REAC TIVE [employer] Comment: HIV-1 antigen and HIV-1/HIV-2 antibodies [...] ?? For additional information please refer to http://education.Taskdoer/faq/TQY042 (This link is being provided for informational/ educational purposes only.) The performance of this assay has not been clinically validated in patients less than 2 years old. Blood Blood / Unknown 12/23/2020 1 0:01 AM EDT 12/23/2020 10:02 AM EDT Narrative [employer] - 12/25/2020 8:45 PM EDT FASTING:YES Blanca Rankin GEOPHYSICAL SUPPORT SPECIALIST-C LAB - BLOOD DRAW Edited Resu lt - Final [facility] [address] [address], [employer] [address],[place] [address] * MAMMOGRAM BI-RADS, ABSTRACTED (05/14/2019 1:59 PM [...] Most Recently Relevant to Health Maintenance Insurance [place] MEDICAID [facility] INSURANCE Member Subscriber Plan / Payer ( fective 2019-Present) Name:Martin Lara Relation to Subscriber:Self Name:Martin Lara Payer ID:[id number] Type:Indemnity Address: [address] [address] [employer]AF[employer] DENTAL Care Teams Commodities Trader Relationship Specialty Start Date End Date Rosa Hanson NP [address] [place] [address] PCP - General Internal Medicine 05/12/23
== END 2024-08-01 10:21 | disposition home or self-care (01) ==
LOC: HO.HMCFM 09:17
PROVIDERS: PCP Physician Assistant; Visit Provider Physician Assistant
DX: E11.65 Type 2 diabetes mellitus with hyperglycemia (principal); I10 Essential (primary) hypertension; E03.9 Hypothyroidism, unspecified; E78.5 Hyperlipidemia, unspecified

== ENCOUNTER → 2024-08-01 09:16 | Outpatient (BNVA) | payer OTHER, SELFPAY | PROVIDERS: PCP Physician Assistant; Visit Provider Physician Assistant | DX: E11.65 Type 2 diabetes mellitus with hyperglycemia (principal); I10 Essential (primary) hypertension; E03.9 Hypothyroidism, unspecified; E78.5 Hyperlipidemia, unspecified; Z79.899 Other long term (current) drug therapy | CPT/HCPCS: 83036; 96127; 99212 ==

== ENCOUNTER 2024-08-01 10:27 | Outpatient (REF) | payer OTHER, SELFPAY ==
[2024-08-01 11:27] LABS: MANUAL DIFF FLAG NO
[2024-08-01 11:32] LABS: Basophils Percent Auto 0.5 % (0-2); Eosinophils Absolute Auto 0.1 X10*3/uL (0.0-0.4); Eosinophils Percent Auto 1.4 % (0-4); Hematocrit 39.5 % (37.0-47.0); Hemoglobin 12.5 g/dl (12.0-16.0); Imm Gran Abs Auto 0.01 X10*3/uL (0.00-0.03); Imm Gran Pct Auto 0.2 % (0.0-0.4); Lymphocytes Absolute Auto 1.6 X10*3/uL (1.2-4.9); Lymphocytes Percent Auto 28.9 % (20-40); Mean Corpuscular HGB Conc 31.6 g/dl (31.0-35.0); Mean Corpuscular Hemoglobin 26.3 pg (27.0-33.0); Mean Platelet Volume 11.5 fL (9.4-12.3); Monocytes Absolute Auto 0.3 X10*3/uL (0.1-1.2); Monocytes Percent Auto 4.8 % (2-11); Neutrophils Absolute Auto 3.6 x10*3/uL (2.0-8.3); Neutrophils Percent Auto 64.2 % (45-73); Platelet Count 222 X10*3/uL (160-400); Red Blood Count 4.76 X10*6/uL (4.20-5.50); Red Cell Distribution Width 12.3 % (11.0-16.0); White Blood Count 5.6 X10*3/uL (4.8-10.8)
[2024-08-01 12:09] LABS: Estimated Average Glucose 258 mg/dL; Hemoglobin A1C 344.9553 umol/L; Hemoglobin A1c % 10.6 % (<6.0); Total Hemoglobin (HGBA1C) 3746.6176 umol/L
--- OUTSIDE RECORDS SUMMARY | 2024-08-01 12:33 | XMS_ITS | Clinical Summary ---
Author Organization [facility] Address [address] [place] [address] Phone Care Team Providers Care Glass Cutter Name Role Phone Rosa Hanson Primary Care Provider [phone] Social History Tobacco Use Types Packs/Day Years [...] Description 08/21/2024 2:00 PM EDT Hospital Encounter Endoscopy [address] [place] [address] Ran High MD [address] [id number] Health Maintenance Due Date Last Done Comments [...] Procedure Name Priority Date/Time Associated Diagnosis Comments [facility] SCREENING DIGITAL Routine 05/14/2019 1:37 PM EST Encounter for screening mammogram for malignant neoplasm of breast from Last 3 Months or Most Recently Relevant to Health Maintenance Results * [facility] SCREENING DIGITAL (05/14/2019 1:37 PM EST) Anatomical Region Laterality Modality Mammography 05/14/2019 10:2 2 AM EST Narrative 05/14/2019 1:37 PM EST [facility] Diagnostic Imaging Department [address] [place] [id number] Patient: ??RADHA,MAN M ?/Age/Sex: 1970 - Unit#: ??[id number] ? Location/Status: ??SPDIMAM/REG CLI ? Mnemonic/Ordering Site: ??DIGSC/SPMAM Ordering Physician: ??SHIVAM MERCER Peter Screening Digital - 05/14/19 - 1045 History: Bilateral breast cancer screening. Technique: Bilateral digital mammography. Conventional CC and MLO projections with tomosynthesis MLO views and computer aided detection. Findings: Comparison: Radiology and Imaging incorporated [facility] 07/04/2018 and 05/12/2017. Breast tissue is mostly fatty replaced (category a density) bilaterally (as calculated by C[employer] software). ??There are benign calcifications bilaterally. ?? There is no suspicious group of microcalcification, no suspicious mass, architectural distortion or suspicious asymmetry. Impression: ??No evidence of malignancy. BIRADS category 2, benign findings, 3342F 60[address], [id number] Note: Patient information entered ??into a reminder system with a target due date for the next mammogram; PQRI II 0727F Dictating Physician: ??BOY GARZA MD Electronically Signed by: ??BOY GARZA MD Dic Date/Time: ??05/14/19 1336 Sign date/Time: ??05/14/19 1337 Procedure Note Boy Garza - 04/06/2022 [facility] Diagnostic Imaging Department [address] [place] [address] Patient: RADHAMARTIN Acevedo /Age/Sex: 1970 - 49 - F Unit#: [id number] Location/Status: SPDIMAM/REG CLI [facility]: SHIVAM MERCER Peter Screening Digital - 05/14/19 - 1045 History: Bilateral breast cancer screening. Technique: Bilateral digital mammography. Conventional CC and MLOprojections with tomosynthesis MLO views and computer aided detection. Findings: Comparison: Radiology and Imaging incorporated [facility] 07/04/2018 and 05/12/2017. Breast tissue is mostly fatty replaced (category a density) bilaterally(as calculated by [employer] software). There are benigncalcifications bilaterally. There is no suspicious group of microcalcification, nosuspicious mass, architectural distortion or suspicious asymmetry. Impression: No evidence of malignancy. BIRADS category 2, benign findings, 3342F [id number], [id number] Note: Patient information entered into a reminder system with a targetdue date for the next mammogram; PQRI II 7025F Dictating Physician: BOY GARZA MD Electronically Signed by: BOY GARZA MD Dic Date/Time: 05/14/19 1336 Sign date/Time: 05/14/19 1337 Result [facility] Shivam GOLDEN IMG BI PROCEDURES Final Result from Last 3 Months or Most Recently Relevant to Health Maintenance Insurance [employer] Care Teams Glass Cutter Relationship Specialty Start Date End Date Rosa Hanson PCP - General 11/22/23
--- OUTSIDE RECORDS SUMMARY | 2024-08-01 12:33 | XMS_ITS | Clinical Summary ---
Author Organization [facility] Address [address] [place] [address] Care Team Providers Care Work Station Support Specialist Name Role Phone Rosa Hanson NP Primary [...] without long-term current use of insulin ([facility]) Dx. E11.65 - Blood sugar check daily 100 Each 11 3 Active blood sugar diagnostic (FREESTYLE TEST) stripsIndicatio ns:Type 2 diabetes mellitus without complication, without long-term current use of insulin ([facility]) Dx. E11.65 - Blood sugar check daily . FREESTYLE LITE Test strips 100 Each 11 3 Active lancetsIndicati ons:Type 2 diabetes mellitus without complication, without long-term current use of insulin ([facility]) Dx. E11.65 - Blood sugar check [...] without long-term current use of insulin ([facility] Take 1 Tablet by mouth once daily [...] without long-term current use of insulin ([facility] Take 1 Tablet by mouth 2 (two) times daily before a meal 180 Tablet 1 4 Active metFORMIN (GLUCOPHAGE) 1,000 mg tabletIndicatio ns:Prescription refill,Type 2 diabetes mellitus without complication, without long-term current use of insulin ([facility]) Take 1 Tablet by mouth 2 (two) [...] As per eye examination done 06/15/15 @ [facility].Dr. Carmela Cheung Pinguecula of both eyes 07/04/2015 Overview (07/04/2015): As per eye examination done 06/15/15 @ [facility].Dr. Carmela Cheung Presbyopia 07/04/2015 Overview (07/04/2015): As per eye examination done 06/15/15 @ [facility].Dr. Carmela Cheung Uncontrolled type 2 diabetes mellitus with hyperglycemia ([facility]) 12/24/2014 Overview (12/24/2014): Lab Results Component [...] 03/22/2023, 05/31/2012 Imm-Zoster, Recombinant Completed 03/22/2023, 12/15 [id number] Completed 01/17/2024, 01/15, 04/06/2021, Additional history exists Imm-Influenza Completed 01/17/2024, 02/17, 03/17/2021, Additional history exists Cervical Ablation/Cold-Knife Conization Discontinued Cervical Cryotherapy Discontinued Colposcopy Discontinued Endometrial Biopsy Discontinued Excision/Leep Discontinued HPV Genotyping Discontinued Vaginal Pap Discontinued Vulvoscopy Discontinued Procedures Procedure Name Priority Date/Time Associated Diagnosis Comments THYROID CASCADING REFLEX PANEL Routine 09/26/2023 9:38 AM EDT Uncontrolled type 2 diabetes mellitus with hyperglycemia ([facility]) COMPREHENSIVE METABOLIC PANEL Routine 09/26/2023 9:38 AM EDT Uncontrolled type 2 diabetes mellitus with hyperglycemia (HCC-CMS) LIPID PANEL Routine 09/26/2023 9:38 AM EDT Uncontrolled type 2 diabetes mellitus with hyperglycemia ([facility]) MICROALBUMIN/CREATININE RATIO, URINE, RANDOM Routine 09/26/2023 9:38 AM EDT Uncontrolled type 2 diabetes mellitus with hyperglycemia ([facility]) HEMOGLOBIN GLYCOSYLATED A1C Routine 09/26/2023 9:38 AM EDT Uncontrolled type 2 diabetes mellitus with hyperglycemia ([facility]) FECAL GLOBIN BY IMMUNOCHEMISTRY (FIT) Routine 10/04/2022 [...] EDT) TSH 1.36 0.40 - 4.50 mIU/L [facility] Comment: ?Reference Range ?> or = 20 Years ??0.40-4.50 ? Ranges ?First trimester ?0.26-2.66 ?Second trimester ?? 0.55-2.73 ?Third trimester ?0.43-2.91 Blood Blood / Unknown 09/26/2023 9 :38 AM EDT 09/26/2023 9:38 AM EDT Rosa Hanson NP LAB - BLOOD DRAW Edited Resu lt - Final [facility] [address] [place] [id number], [employer] [place] [facility] [address] [place] [phone] * MICROALBUMIN/CREATININE RATIO, URINE, RANDOM (09/26/2023 9:38 AM EDT) CREATININE, RANDOM URINE 79 20 - 275 mg/dL [facility] MICROALBUMIN 0.2 mg/dL [employer] Comment: Reference Range Not established MICROALBUMIN/CREA TININE RATIO, RANDOM URINE 3 <30 mg/g creat [facility] Comment: The ADA defines abnormalities in albumin [...] DRAW Final Re sult Performing Organization Address [facility] Co de Phone Number [facility] [address] [place] [address], [employer] [address] [place] [phone] * (ABNORMAL) HEMOGLOBIN GLYCOSYLATED A1C (09/26/2023 9:38 AM EDT) HEMOGLOBIN A1C 9.7(H) <5.7 % of total Hgb [facility] Comment: For someone without known diabetes, a [...] Resu lt - Final Performing Organization Address [facility] Co de Phone Number [facility] [address] [place] [phone], [employer] [address] [place] [phone] * (ABNORMAL) LIPID PANEL (09/26/2023 9:38 AM EDT) CHOLESTEROL, TOTAL 145 <200 mg/dL [employer] [facility] HDL CHOLESTEROL 49(L) > OR = 50 mg/dL [employer] [facility] TRIGLYCERIDES 163(H) <150 mg/dL [employer] [facility] LDL-CHOLESTEROL 72 99 mg/dL (calc) [facility] Comment: Reference range: <100 Desirable range <100 mg/dL for primary prevention; ?? <70 mg/dL for patients with CHD or diabetic patients with > or = 2 CHD risk factors. LDL-C is now calculated using the Renato calculation, which is a validated novel method providing better accuracy than the Friedewald equation in the estimation of LDL-C. Evan SS et al. VIVIAN. 2013;310(19): 4577-8814 (http://education.UnFlete.com/faq/FAT846) CHOL/HDLC RATIO 3.0 <5.0 (calc) [facility] NON-HDL CHOLESTEROL 96 <130 mg/dL (calc) [employer] [facility] Comment: For patients with diabetes plus 1 major ASCVD risk factor, treating to a non-HDL-C goal of <100 mg/dL (LDL-C of <70 mg/dL) is considered a therapeutic option. Blood Blood / Unknown 09/26/2023 9 :38 AM EDT 09/26/2023 9:38 AM EDT Rosa Hanson NP LAB - BLOOD DRAW Final Resul t [employer] [address] [address], [employer] [facility] [address] [place] [address] * (ABNORMAL) COMPREHENSIVE METABOLIC PANEL (09/26/2023 9:38 AM EDT) GLUCOSE 135(H) 65 - 99 mg/dL [employer] [facility] Comment: ?Fasting reference interval For someone without known diabetes, a glucose value >125 mg/dL indicates that they may have diabetes and this should be confirmed with a follow-up test. UREA NITROGEN (BUN) 10 7 - 25 mg/dL [employer] [facility] CREATININE (blood) 0.67 0.50 - 1.03 mg/dL [facility] EGFR 106 > OR = 60 mL/min/1. 73m2 [facility] BUN/CREATININE RATIO SEE NOTE: [facility] Comment: ?? Not Reported: BUN and Creatinine are within ?? reference range. ? SODIUM 141 135 - 146 mmol/L [employer] [facility] POTASSIUM 4.7 3.5 - 5.3 mmol/L [facility] CHLORIDE 106 98 - 110 mmol/L [facility] CARBON DIOXIDE 26 20 - 32 mmol/L [employer] [place] [facility] CALCIUM 9.6 8.6 - 10.4 mg/dL [facility] PROTEIN, TOTAL 7.2 6.1 - 8.1 g/dL [employer] [place] [employer] ALBUMIN 4.1 3.6 - 5.1 g/dL [facility] GLOBULIN 3.1 1.9 - 3.7 g/dL (calc) [employer] [facility] ALBUMIN/GLOBULI N RATIO 1.3 1.0 - 2.5 (calc) [facility] BILIRUBIN, TOTAL 0.6 0.2 - 1.2 mg/dL [employer] [facility] ALKALINE PHOSPHATASE 68 37 - 153 U/L [employer] [facility] AST 30 10 - 35 U/L [employer] [facility] ALT 40(H) 6 - 29 U/L [employer] [facility] Blood Blood / Unknown 09/26/2023 9 :38 AM EDT 09/26/2023 9:38 AM EDT us Rosa Hanson STUDY ABROAD ADVISOR LAB - BLOOD DRAW Edited Resu lt - Final [employer] [address] [address], [employer] [address] [phone] * FECAL GLOBIN BY IMMUNOCHEMISTRY (FIT) (10/04/2022 8:00 PM EDT) FECAL GLOBIN BY IMMUNOCHEMISTRY See Note [employer] [facility] Comment: ??FECAL GLOBIN BY IMMUNOCHEMISTRY ?Micro Number: ?[id number] ??Test Status: ? Final ??Specimen Source: ?? Insure (tm) fobt test card ??Specimen Quality: ??Adequate ??Fecal Globin: ?Not Detected Stool Stool specimen / Unknown 10/04/2022 8:00 PM EDT 10/06/2022 3:24 AM EDT Blanca Rankin REMOTE SENSING TECHNOLOGIST-C LAB - NO BLOOD DRAW Final Re sult [facility] [address] [place] [address], [employer] [address] [phone] * THIN PREP IMAGE PAP + HPV RNA E6/E7 W/RFLX HPV 16, 18/45 (06/17/2021 10:13 AM EST) CLINICAL INFORMATION See Note [facility] Comment:Routine exam LMP See Note [facility] Comment:[id number] PREV. PAP See Note [facility] Comment:NONE GIVEN PREV. BX See Note [facility] Comment:NONE GIVEN SOURCE See Note [facility] Comment:Cervix STATEMENT OF ADEQUACY See Note [facility] Comment: Satisfactory for evaluation. Endocervical/transformation zone component present. INTERPRETATION/RESU LT See Note [facility] Comment:Negative for intraep ithelial lesion or malignancy. COMMENT See Note [facility] Comment: This Pap test has been evaluated with computer assisted technology. INVESTMENT STRATEGIST See Note [facility] [employer] Comment: [place], CT(ASCP) CT screening location: [address] ??[address] COMMENT [facility] HPV MRNA E6/E7 Not Detected Not Detected [facility] Comment: Methodology: Stage Settings Painter-Mediated Amplification This assay detects E6/E7 viral messenger RNA (mRNA) from 14 high-risk HPV types (16,18,31,33,35,39,45,51,52,56,58,59,66,68). The analytical performance characteristics of this assay have been determined by [employer]. The modifications have not been cleared or approved by the FDA. This assay has been validated pursuant to the CLIA regulations and is used for clinical purposes. For additional information, please refer to http://[employer].First Opinion/faq/YCR061o0 (This link if provided for information/ educational purposes only.) Cervix Cervix uteri structure / Unknown 06/17/2021 10:13 AM EST 06/18/2021 3:22 AM EST Narrative [employer] - 06/21/2021 9:42 AM EST EXPLANATORY [...] - NO BLOOD DRAW Final Re sult [facility] [address] [address], [employer] [facility] [address] [address] * HEPATITIS C AB W/RFLX HCV RNA, QT, RT PCR (12/23/2020 10:01 AM EDT) HEPATITIS C ANTIBODY NON-REACT MARKOS NON-REACT MARKOS [employer] [facility] SIGNAL TO CUT-OFF 0.03 <1.00 [facility] Comment: HCV antibody was non-reactive. There is no laboratory evidence of HCV infection. In most cases, no further action is required. However, if recent HCV exposure is suspected, a test for HCV RNA (test code 01113) is suggested. For additional information please refer to http://[employer].First Opinion/faq/OZF68d8 (This link is being provided for informational/ educational purposes only.) Blood Blood / Unknown 12/23/2020 1 0:01 AM EDT 12/23/2020 10:02 AM EDT Narrative [employer] - 12/25/2020 8:45 PM EDT FASTING:YES us Blanca Massiel REMOTE SENSING TECHNOLOGIST-C LAB - BLOOD DRAW Edited Resu lt - Final [employer] [facility] [address] [address], [employer] [address],[place] [address] * HIV 1/2 AG & AB W/RFLX (4TH GEN) (12/23/2020 10:01 AM EDT) HIV AG/AB, 4TH GEN NON-REAC TIVE NON-REAC TIVE [employer] [facility] Comment: HIV-1 antigen and HIV-1/HIV-2 antibodies were [...] ?? For additional information please refer to http://education.First Opinion/faq/EGI159 (This link is being provided for informational/ educational purposes only.) The performance of this assay has not been clinically validated in patients less than 2 years old. Blood Blood / Unknown 12/23/2020 1 0:01 AM EDT 12/23/2020 10:02 AM EDT Narrative [employer] [facility] - 12/25/2020 8:45 PM EDT FASTING:YES Blanca Rankin REMOTE SENSING TECHNOLOGIST-C LAB - BLOOD DRAW Edited Resu lt - Final [employer] [facility] [address] [address], [employer] [address],[place] [address] * MAMMOGRAM BI-RADS, ABSTRACTED (05/14/2019 1:59 PM [...] Most Recently Relevant to Health Maintenance Insurance [place] MEDICAID [facility] [facility] [employer]UR[facility] Member Subscriber Plan / Payer ( fective 2019-Present) Name:Martin Lara Relation to Subscriber:Self Name:Martin Lara Payer ID:[id number] Type:Indemnity Address: [address] [address] [employer]ALTH SAF[employer]Y NET DENTAL Care Teams Work Station Support Specialist Relationship Specialty Start Date End Date Rosa Hanson NP [address] [place] [address] PCP - General Internal Medicine 05/12/23
[2024-08-01 12:36] LABS: TSH reflex Free T4 1.64 uIU/mL (0.32-4.0)
[2024-08-01 12:41] LABS: Alanine Aminotransferase 55 U/L (0-31); Albumin Level 4.2 g/dL (3.5-5.0); Anion Gap 13 (12-20); Aspartate Amino Transferase 38 U/L (5-31); Bilirubin Total 0.6 mg/dL (0.0-1.0); Blood Urea Nitrogen 9 mg/dL (9-16); Calcium 9.6 mg/dL (8.4-10.2); Carbon Dioxide 23 mmol/L (22-29); Chloride 105 mmol/L (96-108); Cholesterol 130 mg/dL (<200); Estimated Glomerular Filt Rate > 60; Glucose Fasting 263 mg/dL (60-99); HDL Cholesterol 47 mg/dL (>40); LDL Cholesterol Calculated 62 mg/dL (<100); Potassium 4.2 mmol/L (3.3-5.1); Sodium 137 mmol/L (135-145); Total Protein 7.5 g/dL (6.5-8.0); Triglycerides 105 mg/dL (<150)
[2024-08-01 12:42] LABS: Alkaline Phosphatase 95 U/L (39-117)
[2024-08-01 14:37] LABS: Creatinine Urine 67.36 mg/dL; Microalbum/Creatinine Ratio Ur 10.3 ug/mg cr (<30)
== END 2024-08-01 10:28 | disposition home or self-care (01) ==
LOC: HO.WFDLDS 10:27
PROVIDERS: Visit Provider Physician Assistant
DX: E03.9 Hypothyroidism, unspecified (principal); E11.65 Type 2 diabetes mellitus with hyperglycemia; I10 Essential (primary) hypertension; E78.5 Hyperlipidemia, unspecified; R73.01 Impaired fasting glucose
CPT/HCPCS: 36415; 80053; 80061; 82043; 82570; 83036; 84443; 85025

== ENCOUNTER 2024-08-07 06:57 | Outpatient (REF) | payer OTHER, SELFPAY ==
--- NOTE | ~2024-08-07 | XR_ITS ---
EXAMINATION: XR ELBOW, LEFT CLINICAL INFORMATION: M25.522 - Pain in left elbow COMPARISON: None available. TECHNIQUE: AP, lateral, and oblique views of the left elbow. FINDINGS: No fracture, dislocation, or suspicious bone lesion. Normal bone mineralization. Normal alignment. Joint spaces are preserved. No significant arthropathy. Minimal spurring of the epicondyles, most significant laterally. No significant joint effusion. Soft tissues appear normal. XR/XR elbow LT min 3V IMPRESSION: 1. No acute bony abnormalities. No joint effusion. 2. Mild spurring of the the epicondyles. Electronically signed by: Garrett Velasco MD 08/07/2024 03:32 PM EDT
--- NOTE | ~2024-08-07 | XR_ITS ---
EXAMINATION: XR SHOULDER, LEFT CLINICAL INFORMATION: M25.512 - Pain in left shoulder COMPARISON: None available. TECHNIQUE: AP external rotation, Grashey, scapular Y, and axillary views of the left shoulder. FINDINGS: Normal bone mineralization. No fracture, dislocation, or suspicious bone lesion. Normal alignment. The glenohumeral joint is normal. The AC joint is normal. There is a type II acromion. No undersurface spurring. The subacromial space is preserved. Remainder of the soft tissue and bony structures appear normal. XR/XR shoulder LT min 2V IMPRESSION: Normal left shoulder. Electronically signed by: Garrett Velasco MD 08/07/2024 03:33 PM EDT
--- OUTSIDE RECORDS SUMMARY | 2024-08-07 07:02 | XMS_ITS | Clinical Summary ---
Author Organization [facility] Address [address] [place] [address] Care Team Providers Care Ict Sales Assistant Name Role Phone Rosa Hanson NP Primary [...] without long-term current use of insulin ([facility]) Dx. E11.65 - Blood sugar check daily 100 Each 11 3 Active blood sugar diagnostic (FREESTYLE TEST) stripsIndicatio ns:Type 2 diabetes mellitus without complication, without long-term current use of insulin ([facility]) Dx. E11.65 - Blood sugar check daily . FREESTYLE LITE Test strips 100 Each 11 3 Active lancetsIndicati ons:Type 2 diabetes mellitus without complication, without long-term current use of insulin ([facility]) Dx. E11.65 - Blood sugar check daily [...] without long-term current use of insulin ([facility]) Take 1 Tablet by mouth once daily [...] without long-term current use of insulin ([facility]) Take 1 Tablet by mouth 2 (two) times daily before a meal 180 Tablet 1 4 Active metFORMIN (GLUCOPHAGE) 1,000 mg tabletIndicatio ns:Prescription refill,Type 2 diabetes mellitus without complication, without long-term current use of insulin ([facility]) Take 1 Tablet by mouth 2 (two) [...] As per eye examination done 06/15/15 @ [facility].Dr. Carmela Cheung Pinguecula of both eyes 07/04/2015 Overview (07/04/2015): As per eye examination done 06/15/15 @ [facility].Dr. Carmela Cheung Presbyopia 07/04/2015 Overview (07/04/2015): As per eye examination done 06/15/15 @ [facility].Dr. Carmela Cheung Uncontrolled type 2 diabetes mellitus with hyperglycemia ([facility]) 12/24/2014 Overview (12/24/2014): Lab Results Component Value [...] 03/22/2023, 05/31/2012 Imm-Zoster, Recombinant Completed 03/22/2023, 12/15 [id number] Completed 01/17/2024, 01/15, 04/06/2021, Additional history exists Imm-Influenza Completed 01/17/2024, 02/17, 03/17/2021, Additional history exists Cervical Ablation/Cold-Knife Conization Discontinued Cervical Cryotherapy Discontinued Colposcopy Discontinued Endometrial Biopsy Discontinued Excision/Leep Discontinued HPV Genotyping Discontinued Vaginal Pap Discontinued Vulvoscopy Discontinued Procedures Procedure Name Priority Date/Time Associated Diagnosis Comments THYROID CASCADING REFLEX PANEL Routine 09/26/2023 9:38 AM EDT Uncontrolled type 2 diabetes mellitus with hyperglycemia ([facility]) COMPREHENSIVE METABOLIC PANEL Routine 09/26/2023 9:38 AM EDT Uncontrolled type 2 diabetes mellitus with hyperglycemia (HCC-CMS) LIPID PANEL Routine 09/26/2023 9:38 AM EDT Uncontrolled type 2 diabetes mellitus with hyperglycemia ([facility]) MICROALBUMIN/CREATININE RATIO, URINE, RANDOM Routine 09/26/2023 9:38 AM EDT Uncontrolled type 2 diabetes mellitus with hyperglycemia ([facility]) HEMOGLOBIN GLYCOSYLATED A1C Routine 09/26/2023 9:38 AM EDT Uncontrolled type 2 diabetes mellitus with hyperglycemia ([facility]) FECAL GLOBIN BY IMMUNOCHEMISTRY (FIT) Routine 10/04/2022 [...] EDT) TSH 1.36 0.40 - 4.50 mIU/L [employer] [facility] Comment: ?Reference Range ?> or = 20 Years ??0.40-4.50 ? Ranges ?First trimester ?0.26-2.66 ?Second trimester ?? 0.55-2.73 ?Third trimester ?0.43-2.91 Blood Blood / Unknown 09/26/2023 9 :38 AM EDT 09/26/2023 9:38 AM EDT Rosa Hanson NP LAB - BLOOD DRAW Edited Resu lt - Final [facility] [address] [place] [id number], [facility] [place] [facility] [address] [place] [phone] * MICROALBUMIN/CREATININE RATIO, URINE, RANDOM (09/26/2023 9:38 AM EDT) CREATININE, RANDOM URINE 79 20 - 275 mg/dL [employer] [facility] MICROALBUMIN 0.2 mg/dL [id number] Comment: Reference Range Not established MICROALBUMIN/CREA TININE RATIO, RANDOM URINE 3 <30 mg/g creat [employer] [facility] Comment: The ADA defines abnormalities in albumin [...] DRAW Final Re sult Performing Organization Address [facility] Co de Phone Number [facility] [address] [place] [phone], [facility] [address] [place] [phone] * (ABNORMAL) HEMOGLOBIN GLYCOSYLATED A1C (09/26/2023 9:38 AM EDT) HEMOGLOBIN A1C 9.7(H) <5.7 % of total Hgb [employer] [facility] Comment: For someone without known diabetes, a [...] Resu lt - Final Performing Organization Address [facility] Co de Phone Number [facility] [address] [place] [phone], [facility] [address] [place] [phone] * (ABNORMAL) LIPID PANEL (09/26/2023 9:38 AM EDT) CHOLESTEROL, TOTAL 145 <200 mg/dL [facility] HDL CHOLESTEROL 49(L) > OR = 50 mg/dL [facility] TRIGLYCERIDES 163(H) <150 mg/dL [facility] LDL-CHOLESTEROL 72 99 mg/dL (calc) [employer] [facility] Comment: Reference range: <100 Desirable range <100 mg/dL for primary prevention; ?? <70 mg/dL for patients with CHD or diabetic patients with > or = 2 CHD risk factors. LDL-C is now calculated using the Renato calculation, which is a validated novel method providing better accuracy than the Friedewald equation in the estimation of LDL-C. Evan SS et al. VIVIAN. 2013;310(19): 1075-8732 (http://education.[employer]/faq/IDA737) CHOL/HDLC RATIO 3.0 <5.0 (calc) [employer] [facility] NON-HDL CHOLESTEROL 96 <130 mg/dL (calc) [facility] Comment: For patients with diabetes plus 1 major ASCVD risk factor, treating to a non-HDL-C goal of <100 mg/dL (LDL-C of <70 mg/dL) is considered a therapeutic option. Blood Blood / Unknown 09/26/2023 9 :38 AM EDT 09/26/2023 9:38 AM EDT Rosa Hanson NP LAB - BLOOD DRAW Final Resul t [facility] [address], [facility] [address] [place] [address] * (ABNORMAL) COMPREHENSIVE METABOLIC PANEL (09/26/2023 9:38 AM EDT) GLUCOSE 135(H) 65 - 99 mg/dL [facility] Comment: ?Fasting reference interval For someone without known diabetes, a glucose value >125 mg/dL indicates that they may have diabetes and this should be confirmed with a follow-up test. UREA NITROGEN (BUN) 10 7 - 25 mg/dL [facility] CREATININE (blood) 0.67 0.50 - 1.03 mg/dL [employer] [facility] EGFR 106 > OR = 60 mL/min/1. 73m2 [employer] [facility] BUN/CREATININE RATIO SEE NOTE: [employer] [facility] Comment: ?? Not Reported: BUN and Creatinine are within ?? reference range. ? SODIUM 141 135 - 146 mmol/L [facility] POTASSIUM 4.7 3.5 - 5.3 mmol/L [employer] [facility] CHLORIDE 106 98 - 110 mmol/L [employer] [facility] CARBON DIOXIDE 26 20 - 32 mmol/L [facility] [place] [facility] CALCIUM 9.6 8.6 - 10.4 mg/dL [employer] [facility] PROTEIN, TOTAL 7.2 6.1 - 8.1 g/dL [facility] [place] [facility] ALBUMIN 4.1 3.6 - 5.1 g/dL [employer] [facility] GLOBULIN 3.1 1.9 - 3.7 g/dL (calc) [facility] ALBUMIN/GLOBULI N RATIO 1.3 1.0 - 2.5 (calc) [employer] [facility] BILIRUBIN, TOTAL 0.6 0.2 - 1.2 mg/dL [facility] ALKALINE PHOSPHATASE 68 37 - 153 U/L [facility] AST 30 10 - 35 U/L [facility] ALT 40(H) 6 - 29 U/L [facility] Blood Blood / Unknown 09/26/2023 9 :38 AM EDT 09/26/2023 9:38 AM EDT us Rosa Hanson POUND KEEPER LAB - BLOOD DRAW Edited Resu lt - Final [facility] [address] [address], [facility] [address] [phone] * FECAL GLOBIN BY IMMUNOCHEMISTRY (FIT) (10/04/2022 8:00 PM EDT) FECAL GLOBIN BY IMMUNOCHEMISTRY See Note [facility] Comment: ??FECAL GLOBIN BY IMMUNOCHEMISTRY ?Micro Number: ?[id number] ??Test Status: ? Final ??Specimen Source: ?? Insure (tm) fobt test card ??Specimen Quality: ??Adequate ??Fecal Globin: ?Not Detected Stool Stool specimen / Unknown 10/04/2022 8:00 PM EDT 10/06/2022 3:24 AM EDT Blanca Rankin DIRECTOR BUSINESS DEVELOPMENT-C LAB - NO BLOOD DRAW Final Re sult [facility] [address] [place] [phone], [facility] [address] [phone] * THIN PREP IMAGE PAP + HPV RNA E6/E7 W/RFLX HPV 16, 18/45 (06/17/2021 10:13 AM EST) CLINICAL INFORMATION See Note [employer] [facility] Comment:Routine exam LMP See Note [employer] [facility] Comment:[id number] PREV. PAP See Note [employer] [facility] Comment:NONE GIVEN PREV. BX See Note [employer] [facility] Comment:NONE GIVEN SOURCE See Note [employer] [facility] Comment:Cervix STATEMENT OF ADEQUACY See Note [employer] [facility] Comment: Satisfactory for evaluation. Endocervical/transformation zone component present. INTERPRETATION/RESU LT See Note [employer] [facility] Comment:Negative for intraep ithelial lesion or malignancy. COMMENT See Note [employer] [facility] Comment: This Pap test has been evaluated with computer assisted technology. PLATE FINISHER See Note [facility] [employer] Comment: KEBEDE, CT(ASCP) CT screening location: [address] ??[id number] COMMENT [employer] [facility] HPV MRNA E6/E7 Not Detected Not Detected [employer] [facility] Comment: Methodology: Tape Recorder Repairer-Mediated Amplification This assay detects E6/E7 viral messenger RNA (mRNA) from 14 high-risk HPV types (16,18,31,33,35,39,45,51,52,56,58,59,66,68). The analytical performance characteristics of this assay have been determined by [employer]. The modifications have not been cleared or approved by the FDA. This assay has been validated pursuant to the CLIA regulations and is used for clinical purposes. For additional information, please refer to http://[employer]/faq/LMU613v4 (This link if provided for information/ educational purposes only.) Cervix Cervix uteri structure / Unknown 06/17/2021 10:13 AM EST 06/18/2021 3:22 AM EST Narrative [facility] [facility] - 06/21/2021 9:42 AM EST EXPLANATORY [...] - NO BLOOD DRAW Final Re sult [facility] [address] [address], [facility] [address] [address] * HEPATITIS C AB W/RFLX HCV RNA, QT, RT PCR (12/23/2020 10:01 AM EDT) HEPATITIS C ANTIBODY NON-REACT MARKOS NON-REACT MARKOS [facility] SIGNAL TO CUT-OFF 0.03 <1.00 [employer] [facility] Comment: HCV antibody was non-reactive. There is no laboratory evidence of HCV infection. In most cases, no further action is required. However, if recent HCV exposure is suspected, a test for HCV RNA (test code 28575) is suggested. For additional information please refer to http://[employer]/faq/ANF57y4 (This link is being provided for informational/ educational purposes only.) Blood Blood / Unknown 12/23/2020 1 0:01 AM EDT 12/23/2020 10:02 AM EDT Narrative [facility] - 12/25/2020 8:45 PM EDT FASTING:YES us Blanca Massiel DIRECTOR BUSINESS DEVELOPMENT-C LAB - BLOOD DRAW Edited Resu lt - Final [facility] [address] [address], [facility] [address],[place] [address] * HIV 1/2 AG & AB W/RFLX (4TH GEN) (12/23/2020 10:01 AM EDT) HIV AG/AB, 4TH GEN NON-REAC TIVE NON-REAC TIVE [facility] Comment: HIV-1 antigen and HIV-1/HIV-2 antibodies were [...] ?? For additional information please refer to http://education.[employer]/faq/QAK772 (This link is being provided for informational/ educational purposes only.) The performance of this assay has not been clinically validated in patients less than 2 years old. Blood Blood / Unknown 12/23/2020 1 0:01 AM EDT 12/23/2020 10:02 AM EDT Narrative [facility] - 12/25/2020 8:45 PM EDT FASTING:YES Blanca Rankin DIRECTOR BUSINESS DEVELOPMENT-C LAB - BLOOD DRAW Edited Resu lt - Final [facility] [address] [address], [facility] [address],[place] [address] * MAMMOGRAM BI-RADS, ABSTRACTED (05/14/2019 1:59 PM [...] Most Recently Relevant to Health Maintenance Insurance [place] MEDICA[place] [facility] Member Subscriber Plan / Payer ( fective 2019-Present) Name:Martin Lara Relation to Subscriber:Self Name:Martin Lara Payer ID:[id number] Type:Indemnity Address: [address] [address] [employer] DENTAL Care Teams Ict Sales Assistant Relationship Specialty Start Date End Date Rosa Hanson NP [address] [place] [address] PCP - General Internal Medicine 05/12/23
[2024-08-07 07:50] LABS: Alanine Aminotransferase 51 U/L (0-31); Albumin Level 4.1 g/dL (3.5-5.0); Alkaline Phosphatase 83 U/L (39-117); Aspartate Amino Transferase 28 U/L (5-31); Bilirubin Direct 0.1 mg/dL (0.0-0.5); Bilirubin Total 0.4 mg/dL (0.0-1.0); Total Protein 7.3 g/dL (6.5-8.0)
[2024-08-07 08:33] LABS: HBsAGNum1 0.29 S/CO (0.00-0.99); Hepatitis B Surface Antigen Negative (Negative); ~Hepatitis C Antibody Nonreactive (Nonreactive)
[2024-08-08 04:21] LABS: Hepatitis A Antibody IgG REACTIVE (Nonreactive); ~Hepatitis A Antibody IgG 9.69 S/CO (0.00-0.99)
== END 2024-08-07 06:58 | disposition home or self-care (01) ==
LOC: HO.LAB 06:57
PROVIDERS: PCP Physician Assistant; Visit Provider Physician Assistant
DX: R94.5 Abnormal results of liver function studies (principal); E11.65 Type 2 diabetes mellitus with hyperglycemia; M25.512 Pain in left shoulder; M25.522 Pain in left elbow
CPT/HCPCS: 36415; 73030; 73080; 80076; 86708; 86803; 87340

== ENCOUNTER → 2024-08-07 07:17 | Outpatient (BNV) | payer OTHER, SELFPAY | PROVIDERS: PCP Physician Assistant; Visit Provider Radiology Diagnostic Radiology | DX: M25.512 Pain in left shoulder (principal); M25.522 Pain in left elbow | CPT/HCPCS: 73030; 73080 ==

== ENCOUNTER 2024-08-14 11:15 | Outpatient (AMB) | payer OTHER, SELFPAY ==
--- NOTE | 2024-08-14 11:16 | MHC.PC.OV ---
Vital Signs 08/14/24 11:21 Height 4 ft 11.84 in Weight 163 lb BMI 32.0 BP 110/74 Blood Pressure Location Lt brachial Position Sitting Respiration 12 Pulse 72 Pulse Source Pulse Oximeter Pulse Oximetry (%) 98 Oxygen Delivery Method Room Air Intake Visit Reasons: labs and bp Intake Note: Labs and blood pressure follow up Pipe Cleaner Required: Yes Pipe Cleaner Name: Mian [id number] Allergies No Known Allergies Allergy (Verified 08/14/24 11:24) Medication List - Last Reconciled 08/14/24 by Roselyn Mosley PA-C atorvastatin 20 mg PO DAILY cholecalciferol (vitamin D3) (Vitamin D3) 50 mcg PO DAILY levothyroxine 50 mcg PO DAILY lisinopril 2.5 mg PO DAILY loratadine (Allergy Relief (loratadine)) 10 mg PO DAILY metformin 1,000 mg PO BID Tobacco use date assessed: 08/14/24 Dental Screening Dental Screen Date: 06/27/24 HPI labs and bp HPI Details Patient is a 54-year-old female who presents today for a follow up. She was supposed to get labs and imaging done prior to today's appointment but never did this. No acute concerns today Lenin [id number] Endo: dm- Last A1c was 10.6. dx around 2009. Never had DM education. Denies any hypoglycemic events. She checks bs about 1-2 a week. Her blood sugars are all over the place from 150-250 . No sx of hyper/hypoglycemia.. She is currently on metformin 1000 mg twice a day and glipizide 5 mg bid. -has tried Trulicity 3 times since our last visit and is tolerating this well. -not interested at this point in diabetic Education. hypothyroid- last TSH was WNL. Currently on levothyroxine 50 mcg. CV: Blood pressure today in the office is 110/76. She is currently on lisinopril 2.5 mg daily. Cholesterol is managed with atorvastatin 20 mg. LDL 62. Mammo: many years ago - booked 09/05 Colonoscopy: never had- scheduled this summer Pap/Medical Billing Assistant: referred at last visit Bone density: never had, lmp 2019. 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 Jarrod Gonzales, Dannielle Lake, Sam Celestin and colleagues, with an educational kristofer from [employer]. Physical exam (Primary Care) Vital Signs: Last Vital Signs Pulse 72 08/14/24 11:21 Resp 12 08/14/24 11:21 BP 110/74 08/14/24 11:21 Pulse Ox 98 08/14/24 11:21 Oxygen Delivery Method Room Air 08/14/24 11:21 BMI result Body Mass Index 32.0 Tobacco/Smoking Status: Tobacco use Status Tobacco use date assessed 08/14/24 08/14/24 11:24 Patient Tobacco Use Status Former Tobacco user 08/14/24 11:24 Tobacco use type Smokeless Tobacco (chewing 08/14/24 11:24 tobacco) e-Cigarette/Vaping Use Never Used 08/14/24 11:24 Thrive Assessment: Date of Thrive Assessment Date Thrive assessed 08/01/24 08/14/24 11:17 Const Orientation/consciousness: patient oriented x3 HENMT Ears: hearing grossly normal bilaterally Neck Thyroid: Thyroid normal Lymphatic: no lymphadenopathy noted Resp Auscultation: clear to auscultation bilaterally Cardio Rate: regular rate Rhythm: regular rhythm Heart sounds: S1 normal heart sound present and S2 normal heart sound present GI Inspection: Yes normal to inspection Palpation (GI): Soft to palpation and Other GI palpation findings present (nontender, no cva tenderness) Auscultation: normoactive bowel sounds Rectal Exam - Female: deferred Skin General skin exam: no rashes or lesions noted Neuro General: patient oriented x3, gait normal and no focal motor deficits Results Reviewed Results Reviewed: Laboratory Tests 08/01/24 08/01/24 08/07/24 10:05 10:30 07:15 WBC 5.6 RBC 4.76 Hgb 12.5 Hct 39.5 Plt Count 222 Sodium 137 Potassium 4.2 Chloride 105 Carbon Dioxide 23 Anion Gap 13 BUN 9 Creatinine 0.72 Estimated GFR > 60 Estimat Average Glucose 258 Hemoglobin A1c % 10.6 H Total Bilirubin 0.4 Direct Bilirubin 0.1 AST 28 ALT 51 H Alkaline Phosphatase 83 Total Protein 7.3 Albumin 4.1 Triglycerides 105 Cholesterol 130 LDL Cholesterol, Calc 62 HDL Cholesterol 47 TSH 1.64 Urine Creatinine 67.36 Urine Microalbumin 7.0 Microalb/Creat Ratio 10.3 Coding Level of Care Code Est Pt Level 4 (78925) Complex EM visit Add On G2211 Diagnoses Elevated LFTs R79.89 Left elbow pain M25.522 Hypothyroid E03.9 HTN (hypertension) I10 Uncontrolled type 2 diabetes mellitus with hyperglycemia, without long-term current use of insulin E11.65 Dyslipidemia E78.5 Assessment & Plan Assessment & Plan (1) Elevated LFTs: Code(s): R79.89 - Other specified abnormal findings of blood chemistry Category: Medical Plan: Has a referral to GI. Ultrasound ordered. Discussed the importance of controlling diabetes. (2) Left elbow pain: Code(s): M25.522 - Pain in left elbow Category: Medical Plan: She will try Voltaren gel. Has been referred to orthopedics. (3) Hypothyroid: Code(s): E03.9 - Hypothyroidism, unspecified Category: Medical Plan: Continue levothyroxine. (4) HTN (hypertension): Code(s): I10 - Essential (primary) hypertension Category: Medical Plan: WNL (5) Uncontrolled type 2 diabetes mellitus with hyperglycemia, without long-term current use of insulin: Code(s): E11.65 - Type 2 diabetes mellitus with hyperglycemia Category: Medical Plan: Increase Trulicity. She will let me know if she is not tolerating this. Increase glipizide to 10 mg twice a day Continue metformin 1000 mg twice a day We discussed diet changes at length. Advised patient to reduce her carbohydrate and sugar intake and I have encouraged exercise. (6) Dyslipidemia: Code(s): E78.5 - Hyperlipidemia, unspecified Category: Medical Plan: Well-controlled. Continue atorvastatin Orders: Orders Complete Blood Count Auto Diff Today E11.65 - Type 2 diabetes mellitus with hyperglycemia, E78.5 - Hyperlipidemia, unspecified, R79.89 - Other specified abnormal findings of blood chemistry Comprehensive [place]. Panel Fast Today E11.65 - Type 2 diabetes mellitus with hyperglycemia, E78.5 - Hyperlipidemia, unspecified, R79.89 - Other specified abnormal findings of blood chemistry Hemoglobin A1c Today E11.65 - Type 2 diabetes mellitus with hyperglycemia, E78.5 - Hyperlipidemia, unspecified, R73.01 - Impaired fasting glucose, R79.89 - Other specified abnormal findings of blood chemistry Medications: New glipizide 10 mg PO BID 180 tabs 2RF dulaglutide (Trulicity) 1.5 mg (0.5 mL) subcut QWEEK 2 mL 3RF Patient Instructions: DIABETES: increase glipizide to 10 mg twice a day increase trulicity to 1.5 mg continue metformin 1000 mg High blood pressure: Continue the lisinopril High cholesterol: continue atorvastatin 20 mg daily Elbow pain: try voltaren gel High liver tests: control Diabetes liver ultrasound is ordered get labs done 2-3 days before I see you
[2024-08-14 11:21] VITALS: BP 110/74; PULSE 72; RESP 12; O2SAT 98; BMI 32.0
--- OUTSIDE RECORDS SUMMARY | 2024-08-14 12:52 | XMS_ITS | Clinical Summary ---
Author Organization [facility] Address [address] [place] [address] Care Team Providers Care Stem Assembler Name Role Phone Unavailable Primary Care Provider Unavailabl e Source Comments PLEASE NOTE, if this patient is a minor, it may be UNLAWFUL to discuss sensitive information that is contained in these records (such as FAMILY PLANNING, MENTAL HEALTH or SUBSTANCE ABUSE) with the minor patient's parent or other person without the patient's specific authorization.[facility] Allergies No known active allergies Medications acetaminophen (TYLENOL) 325 mg tabletIndications:L eft elbow pain Take 1 Tablet by mouth every 6 (six) hours as needed for pain 30 Tablet 1 10/26/19 24 Active losartan (COZAAR) 25 mg tabletIndications:P rimary hypertension Take 1 Tablet by mouth every morning for blood pressure 90 Tablet 1 02/01/20 24 Active rosuvastatin (CRESTOR) 5 mg tabletIndications:M ixed hyperlipidemia,Hype rtriglyceridemia Take 1 Tablet by mouth nightly at bedtime New Rx. Patient to discontinue Gemfibrozil 90 Tablet 02/01/20 24 Active allopurinoL (ZYLOPRIM) 300 mg tabletIndications:H yperuricemia Take 1 Tablet by mouth once daily To decrease uric acid 90 Tablet 2 02/01/20 24 Active fenofibrate nanocrystallized (TRICOR) 48 mg tabIndications:Hype rtriglyceridemia,Mi xed hyperlipidemia Take 1 Tablet by mouth daily . New Rx 90 Tablet 07/31/19 25 Active fenofibric acid, choline, (TRILIPIX) [address] capsuleIndications: Mixed hyperlipidemia,Hype rtriglyceridemia Take 1 Capsule by mouth once daily New Rx. 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 No significant effusion Rash at rt leg [place] region 04/15/2020 Dizziness 01/31/2019 Overview (01/28/2022): 01/19/2022: [facility]: MRI of head: FINDINGS: No diffusion abnormalities are identified to suggest an acute or subacute infarct. No mass effect or midline shift is seen. The ventricles and sulci are slightly commensurately prominent consistent with diffuse loss. There are scattered areas of hyperintense T2 and FLAIR signal in the periventricular and subcortical white matter, and in the gus which are most consistent with chronic microvascular ischemic changes. No extra-axial fluid collections are seen. The cerebellum appears normal. On postcontrast imaging, there is no abnormal parenchymal or leptomeningeal enhancement. No pathologic magnetic susceptibility artifact is identified on the gradient refocused acquisition. The craniovertebral junction, marrow signal, and midline structures are normal. The major intracranial flow-voids at the level of the [place] are preserved. The dural venous sinus flow-voids are maintained. The mastoid air cells are well-aerated. There is mucoperiosteal thickening in the bilateral maxillary and ethmoid sinuses and in the right greater than left sphenoid sinuses. IMPRESSION: 1. There are no acute bleeds or territorial infarcts. No masses are demonstrated. There are no masses or areas of abnormal enhancement. 2. There are chronic microvascular ischemic changes and there is diffuse volume loss. Tendinitis of right shoulder 01/31/2019 Hyperthyroidism 09/19/2018 Low back pain 05/16/2018 Overview (11/18/2018): 05/14/18 - 06/24/18: [facility] PT 2x/wk x 6 wks 10/13/18 - Lumbar xray: no acute findings. Mild degenerative changes. Lichen simplex chronicus 02/24/2016 Left shoulder pain 05/26/2015 Overview (04/04/2019): Going to Pt at [facility] With manisha Shipley at [facility] EMG negative 03/18/15 - xray left shoulder: negative. Hypertriglyceridemia 02/05/2013 Vitamin D deficiency disease 02/05/2013 HTN (hypertension) 02/05/2013 Immunizations Immunization Administration Dates Next Due Flu, Preservative Free 01/18/2023,2020,01/14/2020,2018,05/17/2017 Hep B, Adult/Adol (ENERGIX/RECOMBIVAX) 08/15/2012,09/08/2011,08/09/2011 INFLUENZA, SEASONAL, INJECTABLE 01/19/20 16,02/05/2015,04/23/2014,2011 INFLUENZA, SEASONAL, INJECTA BLE, PRESERVATIVE FREE 02/05/2013 MMR (MMR II/Priorix) 07/06/2011,03/01/2011 TDAP 07/06/2023,07/06/2011 Td(adult),2 Lf tetanus toxoid,preservative free 03/01/2011 Family History Medical History Relation Name Comments Asthma Father Asthma Mother Hypertension Mother Relation Name Status Comments Brother Alive Father Mother Alive Sister 1 Alive Sister 2 Alive Social History Tobacco Use Types Packs/Day Years Used Date Smoking Tobacco: Former Cigarettes Passive Smoke Exposure: Never Smokeless Tobacco: Former Chew Tobacco Cessation:Counseling Given: Not Answered Comments:chewing tobacco since age 17; Alcohol Use Standard Drinks/Week Comments No 0 (1 standard drink = 0.6 oz pur e alcohol) Social Connections Answer Date Recorded Connectedness 0 01/01/2024 Financial Resource Strain Answer Date R ecorded Financial Resource Strain 0 2018 Stress Answer Date Recorded Stress 0 12/05/2018 Physical Activity Answer Date Recorded Physical Activity 0 12/05/2018 Food Insecurity Answer Date Recorded Food 0 01/11/2024 Transportation Needs Answer Date Record ed Transportation 0 12/05/2018 Housing Stability Answer Date Recorded Housing 0 12/05/2018 Safety and Environment Answer Date Jose rded Safety 0 12/05/2018 Utilities Answer Date Recorded Utilities 0 12/05/2018 Employment Answer Date Recorded Stress 0 01/01/2024 Sex and Gender Information Value Date Recorded Sex Assigned at Male 01/09/2017 8:31 AM PDT Legal Sex Male 11:36 AM PDT Gender Identity Male 01/09/2017 8:31 AM PDT Sexual Orientation Straight 01/09/2017 8: 31 AM PDT 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 Not on file Not on file Not on file Last Filed Vital Signs Vital Sign Reading Time Taken Comments Blood Pressure 124/80 04/18/2024 10:46 AM EST Pulse 88 04/18/2024 10:46 AM EST Temperature 36.9 ??C (98.4 ??F) 04/18/2024 10:[address] Respiratory Rate 16 04/18/2024 10:46 AM EST Oxygen Saturation 99% 04/18/2024 10:46 AM EST Inhaled Oxygen Concentration - - Weight 83.6 kg (184 lb 4.8 oz) 04/18/2024 10:46 AM EST Height 180.3 cm (5' 11 ) 04/18/2024 10:46 AM EST Body Mass Index 25.7 04/18/2024 10:46 AM EST Plan of Treatment Health Maintenance Due Date Last Done Comments Anxiety Screening 1969 CT Colonography 2014 Colonoscopy 2014 Colorectal Cancer Screening 2014 FIT/gFOBT 2014 Fecal DNA 2014 Flexible Sigmoidoscopy 2014 Imm-Zoster, Recombinant (1 of 2) 2019 Depression Annual Screen 2024 07/06/2023, 04/18 Annual Preventive Care Visit 07/05/2024, 09/19/2018, 05/17/2017, Additional history exists Tobacco Screening 10/25/2024 10/26/2023, , 05/17/2017 Dental BW 01/09/2025 01/08/2024, 06/15, 11/16/2022, Additional history exists Dental Examination 01/09/2025 01/08/2024, 0 06/29/2023, 11/16/2022, Additional history exists Dental Perio Charting 01/09/2025 01/08/2024 , 06/29/2023, 11/16/2022, Additional history exists Dental Prophy 01/09/2025 01/08/2024, 06/15, 11/16/2022 Lipid Screening 01/17/2025 01/18/2024, 10/15, 07/12/2023, Additional history exists Diabetes Screening 01/17/2027 01/18/2024, 0 10/28/2023, 07/12/2023, Additional history exists Dental FMX/Pano 02/26/2027 02/24/2022 Imm-DTaP/Tdap/Td (3 - Td or Tdap) 07/05/2033 07/06/2023, 07/06/2011, 03/01/2011 Imm-Hepatitis B Completed 08/15/2012, 08/16, 08/09/2011 HIV Screening Completed 02/13/2013 Hepatitis C Screening Completed 02/13/2013 Fko-ABLVY-19 Completed 01/17/2024, 01/15, 04/06/2021, Additional history exists Imm-Influenza Completed 01/17/2024, 07/2022, 03/16/2022, Additional history exists Alcohol and Drug Screen Completed 04/18/19, 07/06/2023, 07/13/2022, Additional history exists Goals Goal Patient Goal Type Associated Problems Recent Progress Patient-Stated? Author Blood Pressure < 140/90 Blood Pressure HTN (hypertension) 124/80( 025 10:46 AM EST) No Makayla Lake, PharmD Procedures Procedure Name Priority Date/Time Associated Diagnosis Comments COMPREHENSIVE METABOLIC PANEL Routine 01/18/2024 9:53 AM EDT Mixed hyperlipidemia Hypertriglyceridem ia LIPID PANEL Routine 01/18/2024 9:53 AM EDT Mixed hyperlipidemia Hypertriglyceridem ia COMP PERIODONTAL EVALUATION - NEW/EST PATIENT Routine 01/08/2024 9:40 AM EDT [facility] BITEWINGS - FOUR RADIOGRAPHIC IMAGES Routine 01/08/2024 9:40 AM EDT [facility] PROPHYLAXIS - ADULT Routine 01/08/2024 9 :40 AM EDT [facility] PERIODIC ORAL EVALUATION ESTABLISHED PATIENT Routine 01/08/2024 9:40 AM EDT [facility] INTRAORAL - COMP SERIES OF RADIOGRAPHIC IMAGES Routine 02/24/2022 2:20 PM EST Gingivitis, chronic, plaque induced ANTIBODY HIV-1&HIV-2 SINGLE RESULT Routine 02/13/2013 3:16 PM EDT Needle stick injury ACUTE HEPATITIS PANEL Routine 02/13/2013 3:16 PM EDT Needle stick injury from Last 3 Months or Most Recently Relevant to Health Maintenance Results * (ABNORMAL) LIPID PANEL (01/18/2024 9:53 AM EDT) CHOLESTEROL, TOTAL 311(H) <200 mg/dL [facility] HDL CHOLESTEROL 40 > OR = 40 mg/dL [facility] TRIGLYCERIDES 2,415(H) <150 mg/dL [facility] Comment: Verified by repeat analysis. If a non-fasting specimen was collected, consider repeat triglyceride testing on a fasting specimen if clinically indicated. John et al. J. of Clin. Lipidol. 2015;9:129-169. There is increased risk of pancreatitis when the triglyceride concentration is very high (> or = 500 mg/dL, especially if > or = 1000 mg/dL). John et al. J. of Clin. Lipidol. 2015;9:129-169. LDL-CHOLESTEROL See Note [facility] Comment: LDL cholesterol not calculated. Triglyceride levels greater than 400 mg/dL invalidate calculated LDL results. Reference range: <100 Desirable range <100 mg/dL for primary prevention; ?? <70 mg/dL for patients with CHD or diabetic patients with > or = 2 CHD risk factors. LDL-C is now calculated using the Evan-Ekaterina calculation, which is a validated novel method providing better accuracy than the Friedewald equation in the estimation of LDL-C. Evan SS et al. VIVIAN. 2013;310(19): 3684-0468 (http://education.Gift2Greet.com/faq/KOD285) CHOL/HDLC RATIO 7.8(H) <5.0 (calc) [facility] NON-HDL CHOLESTEROL 271(H) <130 mg/dL (calc) [facility] Comment: Non-HDL level > or = 220 is very high and may indicate genetic familial hypercholesterolemia (FH). Clinical assessment and measurement of blood lipid levels should be considered for all first-degree relatives of patients with an FH diagnosis. For patients with diabetes plus 1 major ASCVD risk factor, treating to a non-HDL-C goal of <100 mg/dL (LDL-C of <70 mg/dL) is considered a therapeutic option. Blood Blood / Unknown 01/18/2024 9 :53 AM EDT 01/18/2024 9:54 AM EDT Narrative [facility] - 01/19/2024 1:34 PM EDT FASTING:YES us Mary Yanez PA-C LAB - BLOOD DRAW Final Resu lt [employer] [address] [address], [employer] [address] [address] * COMPREHENSIVE METABOLIC PANEL (01/18/2024 9:53 AM EDT) GLUCOSE 97 65 - 99 mg/dL [facility] Comment: ?Fasting reference interval UREA NITROGEN (BUN) 15 7 - 25 mg/dL [facility] CREATININE (blood) 1.14 0.70 - 1.30 mg/dL [employer] [facility] EGFR 76 > OR = 60 mL/min/1. 73m2 [facility] BUN/CREATININE RATIO SEE NOTE: [facility] Comment: ?? Not Reported: BUN and Creatinine are within ?? reference range. ? SODIUM 135 135 - 146 mmol/L [facility] POTASSIUM 3.7 3.5 - 5.3 mmol/L [facility] CHLORIDE 101 98 - 110 mmol/L [facility] CARBON DIOXIDE 23 20 - 32 mmol/L [facility] CALCIUM 9.7 8.6 - 10.3 mg/dL [facility] PROTEIN, TOTAL 7.3 6.1 - 8.1 g/dL [facility] ALBUMIN 4.9 3.6 - 5.1 g/dL [facility] GLOBULIN 2.4 1.9 - 3.7 g/dL (calc) [facility] ALBUMIN/GLOBULI N RATIO 2.0 1.0 - 2.5 (calc) [facility] [employer] BILIRUBIN, TOTAL 0.7 0.2 - 1.2 mg/dL [facility] ALKALINE PHOSPHATASE 46 35 - 144 U/L [facility] AST 32 10 - 35 U/L [facility] Comment: Results slightly increased due to lipemia. ALT 35 9 - 46 U/L [facility] Blood Blood / Unknown 01/18/2024 9 :53 AM EDT 01/18/2024 9:54 AM EDT Narrative [facility] - 01/19/2024 1:34 PM EDT FASTING:YES Mary Yanez PA-C LAB - BLOOD DRAW Final Resu lt Performing Organization Address City/[facility]/ZIP Co de Phone Number [facility] [address] [address], [employer] [address] [address] * HIV-1 & HIV-2 ANTIBODIES (02/13/2013 3:16 PM EDT) HIV 1 AND 2 ANTIBODY SCREEN NEGATIVE NEGATIVE [facility] Comment:Performer: [facility] (ML) Blood specimen (specimen) Blood / Unknown 02/13/2013 3:16 PM EDT 02/13/2013 3:[address] [facility] - 02/14/2013 8:07 AM EDT [employer] [address] [place] [address] [place] [id number] ORD# [id number] Charlie Sierra MD LAB - BLOOD DRAW Edited Performing Organization Address City/[facility]/ZIP Co de Phone Number [address] [address], * (ABNORMAL) ACUTE HEPATITIS PANEL (02/13/2013 3:16 PM EDT) HEPATITIS B SURFACE ANTIGEN NEGATIVE NEGATIVE [facility] Comment:Performer: [facility] (ML) HEPATITIS C VIRUS ANTIBODY NEGATIVE NEGATIVE [facility] Comment:Performer: [facility] (ML) HEPATITIS B CORE ANTIBODY IGM NEGATIVE NEGATIVE [facility] Comment:Performer: [facility] (ML) HEPATITIS A ANTIBODY TOTAL POSITIVE(A) NEGATIVE [facility] Comment:Performer: [facility] (ML) Blood specimen (specimen) Blood / Unknown 02/13/2013 3:16 PM EDT 02/13/2013 3:[address] [facility] - 02/13/2013 7:00 PM EDT [facility] [address] [place] [address] PT ID [id number] ORD# [id number] us Charlie Sierra MD LAB - BLOOD DRAW Edited [facility] [address] [place] [address], from Last 3 Months or Most Recently Relevant to Health Maintenance Insurance [employer] NET [facility] [employer] [facility] Member Subscriber Plan / Payer (Ef fective 2024-Present) Name:Martin Lara Relation to Subscriber:Self Name:Martin Lara Payer ID:[id number] Type:Indemnity Address: [facility] [address] [place] [address] HEALTH SAF[employer]Y NET
--- OUTSIDE RECORDS SUMMARY | 2024-08-14 12:52 | XMS_ITS | Clinical Summary ---
Author Organization [facility] Address [address] [place] [address] Phone Care Team Providers Care Concrete Pouring Supervisor Name Role Phone Rosa Hanson Primary Care Provider [phone] Medications polyethylene glycol (Golytely) 236-22.74-6.74 -5.86 gram solution Take 4L by mouth once for one dose. May substitue any PEG. Starting at 6PM the night before your procedure drink 1 8oz glasses at your own pace until you complete half of the gallon. Finish 2nd half of the gallon 5 hours before your procedure. 4000 mL 5 Active bisacodyL (DULCOLAX) 5 mg EC tablet Take 2 tablets by mouth right before beginning bowel prep. See instructions provided by the office 2 tablet 5 Active Encounters Date Type Department Care Team Description 08/13/2024 Telephone Gastroenterology - [address] [address] Ran High MD Special Procedure CX from Last 3 Months Social History Tobacco Use Types Packs/Day Years Used Date Smoking Tobacco: Never Assessed Comments Unknown Sex and Gender Information Value Date Recorded Sex Assigned at Not on file Legal Sex Female 2:53 PM EST Gender Identity Not on file Sexual Orientation Not on file Plan of Treatment Health Maintenance Due Date Last Done Comments DTaP,Tdap,and Td Vaccines (1 - Tdap) 1991 Hepatitis B Vaccines (1 of 3 - 19+ 3-dose series) 1991 Cervical Cancer Screening: P ap Smear 1993 Breast Cancer Screening 05/14/2021 05/14/2019 Pneumococcal Vaccine: 50+ Ye ars (1 of 1 - PCV) 2022 Zoster Vaccines (1 of 2) 2022 COVID-19 Vaccine (1 - 2023-2 5 season) 2023 Colorectal Cancer [...] Procedure Name Priority Date/Time Associated Diagnosis Comments [facility] SCREENING DIGITAL Routine 05/14/2019 1:37 PM EST Encounter for screening mammogram for malignant neoplasm of breast from Last 3 Months or Most Recently Relevant to Health Maintenance Results * PETER SCREENING DIGITAL (05/14/2019 1:37 PM EST) Anatomical Region Laterality Modality Mammography 05/14/2019 10:2 2 AM EST Narrative 05/14/2019 1:37 PM EST [facility] Diagnostic Imaging Department [address] [place] [address] [id number] Patient: ??MARTIN GARCIA ?/Age/Sex: 1970 - 49 - F Unit#: ??[id number] ? Location/Status: ??SPDIMAM/REG CLI ? Mnemonic/Ordering Site: ??DIGSC/SPMAM Ordering Physician: ??SHIVAM MERCER MERCHANDISING SPECIALIST Peter Screening Digital - 05/14/19 - 1045 History: Bilateral breast cancer screening. Technique: Bilateral digital mammography. Conventional CC and MLO projections with tomosynthesis MLO views and computer aided detection. Findings: Comparison: Radiology and Imaging incorporated [facility] 07/04/2018 and 05/12/2017. Breast tissue is mostly fatty replaced (category a density) bilaterally (as calculated by [employer] software). ??There are benign calcifications bilaterally. ?? There is no suspicious group of microcalcification, no suspicious mass, architectural distortion or suspicious asymmetry. Impression: ??No evidence of malignancy. BIRADS category 2, benign findings, 3342F [address], [id number] Note: Patient information entered ??into a reminder system with a target due date for the next mammogram; PQRI II [id number] Dictating Physician: ??BOY GARZA MD Electronically Signed by: ??BOY GARZA MD Dic Date/Time: ??05/14/19 1336 Sign date/Time: ??05/14/19 1337 Procedure Note Boy Garza - 04/06/2022 [facility] Diagnostic Imaging Department [address] [place] [address] [id number] Patient: MARTIN GARCIA /Age/Sex: 1970 - 49 - F Unit#: [id number] Location/Status: SPDIMAM/REG CLI Mnemonic/Ordering Site: [facility] Ordering Physician: SHIVAM MERCER Peter Screening Digital - 05/14/19 - 1045 History: Bilateral breast cancer screening. Technique: Bilateral digital mammography. Conventional CC and MLOprojections with tomosynthesis MLO views and computer aided detection. Findings: Comparison: Radiology and Imaging incorporated [facility] 07/04/2018 and 05/12/2017. Breast tissue is mostly fatty replaced (category a density) bilaterally(as calculated by [employer] software). There are benigncalcifications bilaterally. There is no suspicious group of microcalcification, nosuspicious mass, architectural distortion or suspicious asymmetry. Impression: No evidence of malignancy. BIRADS category 2, benign findings, 3342F 98[address], [id number] Note: Patient information entered into a reminder system with a targetdue date for the next mammogram; PQRI II 7025F Dictating Physician: BOY GARZA MD Electronically Signed by: BOY GARZA MD Dic Date/Time: 05/14/19 1338 Sign date/Time: 05/14/19 1337 Shivam GOLDEN IMG BI PROCEDURES Final Result from Last 3 Months or Most Recently Relevant to Health Maintenance Insurance [address] [place] [phone] [employer] Care Teams Concrete Pouring Supervisor Relationship Specialty Start Date End Date Rosa Hanson PCP - General 11/22/23
--- OUTSIDE RECORDS SUMMARY | 2024-08-14 12:52 | XMS_ITS | Encounter Summary ---
Author Organization [facility] Address [address] [place] [address] Care Team Providers Care Senior Environmental Scientist Name Role Phone Rosa Hanson Primary Care Provider [phone] Reason for Visit * Reason Onset Date Comments Special Procedure CX 08/13/2024 Encounter Details Date Type Department Care Team (Late st Contact Info) Description 08/13/2024 Telephone Gastroenterology - 299 [place] [address] [facility] [address] [place] [phone] Ran High MD [address] [facility] [address] [place] [address] Special Procedure CX Social History Tobacco Use Types Packs/Day Years Used Date Smoking Tobacco: Never Assessed Comments Unknown Sex and Gender Information Value Date Recorded Sex Assigned at Not on file Legal Sex Female 2:53 PM EST Gender Identity Not on file Sexual Orientation Not on file documented as of this encounter Progress Notes * Etelvina Montiel MA - 08/13/2024 9:58 AM EDT Canceled.. * Alicia Cee - 08/13/2024 9:52 AM EDT Pt would like to cancel procedure because he has a different doctor, please cx procedure. documented in this encounter Plan of Treatment Not on file documented as of this encounter Visit Diagnoses Not on filedocumented in this encounter Care Teams Senior Environmental Scientist Relationship Specialty Start Date End Date Rosa Hanson PCP - General 11/22/23 documented as of this encounter
== END 2024-08-14 12:01 | disposition home or self-care (01) ==
LOC: HO.HMCFM 11:15
PROVIDERS: PCP Physician Assistant; Visit Provider Physician Assistant
DX: E11.65 Type 2 diabetes mellitus with hyperglycemia (principal); R79.89 Other specified abnormal findings of blood chemistry; M25.522 Pain in left elbow; E03.9 Hypothyroidism, unspecified; I10 Essential (primary) hypertension; E78.5 Hyperlipidemia, unspecified

== ENCOUNTER → 2024-08-14 11:15 | Outpatient (BNVA) | payer OTHER, SELFPAY | PROVIDERS: PCP Physician Assistant; Visit Provider Physician Assistant | DX: R79.89 Other specified abnormal findings of blood chemistry (principal); M25.522 Pain in left elbow; E03.9 Hypothyroidism, unspecified; I10 Essential (primary) hypertension; E11.65 Type 2 diabetes mellitus with hyperglycemia; Z79.84 Long term (current) use of oral hypoglycemic drugs; Z79.899 Other long term (current) drug therapy | CPT/HCPCS: 99212 ==

== ENCOUNTER 2024-09-12 09:16 | Outpatient (AMB) | payer OTHER, SELFPAY ==
--- NOTE | 2024-09-12 09:21 | A.OFFPC_ITS ---
Vital Signs 09/12/24 09:24 Height 4 ft 11.84 in Weight 163 lb BMI 32.0 BP 116/74 Blood Pressure Location Rt brachial Position Sitting Respiration 14 Pulse 68 Pulse Source Pulse Oximeter Pulse Oximetry (%) 95 Oxygen Delivery Method Room Air Intake Visit Reasons: 30 min dm and bp and labs Intake Note: Follow up Fishing Lure Assembler Required: Yes Fishing Lure Assembler Name: Fishing Lure Assembler declined. Allergies No Known Allergies Allergy (Verified 09/12/24 09:23) Medication List - Last Reconciled 09/12/24 by Roselyn Mosley PA-C atorvastatin 20 mg PO DAILY cholecalciferol (vitamin D3) (Vitamin D3) 50 mcg PO DAILY glipizide 10 mg PO BID levothyroxine 50 mcg PO DAILY lisinopril 2.5 mg PO DAILY loratadine (Allergy Relief (loratadine)) 10 mg PO DAILY metformin 1,000 mg PO BID semaglutide (Ozempic) 0.25 mg (0.368 mL) subcut QWEEK triamcinolone acetonide 0.025% 1 appl topical BID 7 days Tobacco use date assessed: 09/12/24 Dental Screening Dental Screen Date: 06/27/24 HPI 30 min dm and bp and labs HPI Details Patient is a 54-year-old female who presents today for a follow up. She was supposed to get labs and imaging done prior to today's appointment but never did this. No acute concerns today Daughter inlaw here for translation Endo: dm- Last A1c was 10.6. dx around 2009. Never had DM education and is adamant that she does not want this. Denies any hypoglycemic events-but refuses to check blood sugars. She is currently on metformin 1000 mg twice a day, glipizide 10 mg bid, and Trulicity 1.5 mg weekly -has stopped the glipizide due to dizzin ess with it. does not check bs with it. does not want to. States that she does not think that it is low blood sugars that she just feels a little off with the medication. -states that she does not have any nause a or vomiting or GI side effects with the Trulicity but has injection site pain and some irritation of the skin. She states that the skin when she injects the last 3 times has been a little red and bumpy. It has not really changed in it resolves on its own within a couple days. -not interested at this point in diabeti c Education. hypothyroid- last TSH was WNL. Currently on levothyroxine 50 mcg. CV: Blood pressure today in the office is 116/74. She is currently on lisinopril 2.5 mg daily. Cholesterol is managed with atorvastatin 20 mg. LDL 62. GI: Lfts were elevated, has not yet repeated ordered tests or u/s. Has a ultrasound booked for tomorrow but states that she has to reschedule. Mammo: many years ago - booked 09/05 Colonoscopy: never had- scheduled this summer Pap/Specialty Finishing Utility Person: referred at last visit Bone density: never had, lmp 2019. 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 [employer] Current occupational exposures/hazards: No Cognitive needs: No Hearing needs: No Vision needs: Yes (glasses) Questionnaire Thrive Questionnaire Date Thrive assessed: 06/27/24 I am a: Patient What is your living situation today?: I choose not to answer this question Within the past 12 months, did the food you bought not last and you didn't have the money to get more?: I choose not to answer this question Within the past 12 months, did you worry whether your food would run out before you got money to buy more?: I choose not to answer this question Do you have trouble paying for medicines?: No Do you have trouble getting transportation to medical appointments?: I choose not to answer this question Do you have trouble paying your heating and electricity bill?: I choose not to answer this question Do you have trouble taking care of your child, family member or friend?: I choose not to answer this question Do you have trouble with day-to-day activities such as bathing, preparing meals, shopping, managing finances, etc.?: I choose not to answer this question Are you currently unemployed and looking for a job?: I choose not to answer this question Are you interested in more education?: I choose not to answer this question Please select the resources that you would like help with: None THRIVE Score: 0 AUDIT C Alcohol Use Questionnaire (AUDIT-C) 1. How often do you have a drink containing alcohol?: Never 3. How often do you have six or more drinks on one occasion?: Never Total Score: 0 BRAEDEN-7 AMB Questionnaire BRAEDEN-7 Date BRAEDEN - 7 assessed: 06/27/24 Source: Developed by Drs. Jarrod Gonzales, Dannielle Lake, Sam Celestin and colleagues, with an educational kristofer from [employer]. Physical exam (Primary Care) Vital Signs: Last Vital Signs Pulse 68 09/12/24 09:24 Resp 14 09/12/24 09:24 BP 116/74 09/12/24 09:24 Pulse Ox 95 09/12/24 09:24 Oxygen Delivery Method Room Air 09/12/24 09:24 BMI result Body Mass Index 32.0 Tobacco/Smoking Status: Tobacco use Status Tobacco use date assessed 09/12/24 09/12/24 09:30 Patient Tobacco Use Status Former Tobacco user 09/12/24 09:30 Tobacco use type Smokeless Tobacco (chewing 09/12/24 09:30 tobacco) e-Cigarette/Vaping Use Never Used 09/12/24 09:30 Thrive Assessment: Date of Thrive Assessment Date Thrive assessed 06/27/24 09/12/24 09:30 Const Orientation/consciousness: patient oriented x3 HENMT Ears: hearing grossly normal bilaterally Neck Thyroid: Thyroid normal Lymphatic: no lymphadenopathy noted Resp Auscultation: clear to auscultation bilaterally Cardio Rate: regular rate Rhythm: regular rhythm Heart sounds: S1 normal heart sound present and S2 normal heart sound present GI Inspection: Yes normal to inspection Palpation (GI): Soft to palpation and Other GI palpation findings present (nontender, no cva tenderness) Auscultation: normoactive bowel sounds Rectal Exam - Female: deferred Skin General skin exam: no rashes or lesions noted Neuro General: patient oriented x3, gait normal and no focal motor deficits Coding Level of Care Code Est Pt Level 4 (11565) Complex EM visit Add On G2211 Diagnoses Elevated LFTs R79.89 HTN (hypertension) I10 Uncontrolled type 2 diabetes mellitus with hyperglycemia, without long-term current use of insulin E11.65 Dyslipidemia E78.5 Assessment & Plan Assessment & Plan (1) Elevated LFTs: Code(s): R79.89 - Other specified abnormal findings of blood chemistry Category: Medical Plan: repeat labs today Advised that she needs to reschedule the ultrasound Has a an appointment with GI this summer Discussed the importance of controlling blood sugars (2) HTN (hypertension): Code(s): I10 - Essential (primary) hypertension Category: Medical Plan: WNL. Continue current regimen (3) Uncontrolled type 2 diabetes mellitus with hyperglycemia, without long-term current use of insulin: Code(s): E11.65 - Type 2 diabetes mellitus with hyperglycemia Category: Medical Plan: We will switch from Trulicity to Ozempic. She is not tolerating the Trulicity injection. We reviewed risks, benefits and adverse effects of the Ozempic. Continue metformin He has discontinued the glipizide on her own. Does not want blood sugar checked today in the office. I will recheck labs prior to our next appointment. Spent extensive time discussing adverse effects of poorly controlled diabetes and reviewing signs and symptoms of hyper and hypoglycemia. (4) Dyslipidemia: Code(s): E78.5 - Hyperlipidemia, unspecified Category: Medical Plan: Continue current regimen Medications: New triamcinolone acetonide 0.025% 1 appl topical BID 7 days 15 grams 0RF semaglutide (Ozempic) 0.25 mg (0.368 mL) subcut QWEEK 3 mL 3RF Refilled lisinopril 2.5 mg PO DAILY 90 tabs 3RF atorvastatin 20 mg PO DAILY 90 tabs 3RF Discontinued glipizide Discontinued Reason: Doctor's Order 10 mg PO BID 180 tabs 2RF dulaglutide (Trulicity) Discontinued Reason: Doctor's Order 1.5 mg (0.5 mL) subcut QWEEK 2 mL 3RF Patient Instructions: call ultrasound department to reschedule abdominal ultrasound switch from trulicity to ozempic don't start ozempic until next monday 09/18
[2024-09-12 09:24] VITALS: BP 116/74; PULSE 68; RESP 14; O2SAT 95; BMI 32.0
--- OUTSIDE RECORDS SUMMARY | 2024-09-12 09:40 | XMS_ITS | Clinical Summary ---
Author Organization [facility] Address [address] [place] [address] Phone Care Team Providers Care Mold Changer Name Role Phone Rosa Hanson Primary Care Provider [phone] Medications polyethylene glycol (Golytely) 236-22.74-6.74 -5.86 gram [...] Team Description 08/13/2024 Telephone Gastroenterology - [address] [id number] Ran High MD Special Procedure [...] Procedure Name Priority Date/Time Associated Diagnosis Comments [facility] SCREENING DIGITAL Routine 05/14/2019 1:37 PM EST Encounter for screening mammogram for malignant neoplasm of breast from Last 3 Months or Most Recently Relevant to Health Maintenance Results * PETER SCREENING DIGITAL (05/14/2019 1:37 PM EST) Anatomical Region Laterality Modality Mammography 05/14/2019 10:2 2 AM EST Narrative 05/14/2019 1:37 PM EST [facility] Diagnostic Imaging Department [address] [place] [address] [id number] Patient: ??MARTIN GARCIA ?/Age/Sex: 1970 - 49 - F Unit#: ??[id number] ? Location/Status: ??SPDIMAM/REG CLI ? Mnemonic/Ordering Site: ??DIGSC/SPMAM Ordering Physician: ??SHIVAM MERCER SPECIAL POPULATION PARAPROFESSIONAL Peter Screening Digital - 05/14/19 - 1045 History: Bilateral breast cancer screening. Technique: Bilateral digital mammography. Conventional CC and MLO projections with tomosynthesis MLO views and computer aided detection. Findings: Comparison: Radiology and Imaging incorporated [facility] 07/04/2018 and 05/12/2017. Breast tissue is mostly fatty replaced (category a density) bilaterally (as calculated by [employer] software). ??There are benign calcifications bilaterally. ?? There is no suspicious group of microcalcification, no suspicious mass, architectural distortion or suspicious asymmetry. Impression: ??No evidence of malignancy. BIRADS category 2, benign findings, 3342F [id number], [id number] Note: Patient information entered ??into a reminder system with a target due date for the next mammogram; PQRI II 2756P Dictating Physician: ??BOY GARZA MD Electronically Signed by: ??BOY GARZA MD Dic Date/Time: ??05/14/19 1336 Sign date/Time: ??05/14/19 1337 Procedure Note Boy Garza - 04/06/2022 [facility] Diagnostic Imaging Department [address] [place] [address] [id number] Patient: MARTIN GARCIA /Age/Sex: 1970 - 49 - F Unit#: [id number] Location/Status: SPDIMAM/REG CLI Mnemonic/Ordering Site: [facility] Ordering Physician: SHIVAM MERCER Peter Screening Digital - 05/14/19 - 1045 History: Bilateral breast cancer screening. Technique: Bilateral digital mammography. Conventional CC and MLOprojections with tomosynthesis MLO views and computer aided detection. Findings: Comparison: Radiology and Imaging incorporated [facility] 07/04/2018 and 05/12/2017. Breast tissue is mostly fatty replaced (category a density) bilaterally(as calculated by [employer] software). There are benigncalcifications bilaterally. There is no suspicious group of microcalcification, nosuspicious mass, architectural distortion or suspicious asymmetry. Impression: No evidence of malignancy. BIRADS category 2, benign findings, 3342F 73288, 34619 Note: Patient information entered into a reminder system with a targetdue date for the next mammogram; PQRI II 7025F Dictating Physician: BOY GARZA MD Electronically Signed by: BOY GARZA MD Dic Date/Time: 05/14/19 1331 Sign date/Time: 05/14/19 1337 Shivam GOLDEN IMG BI PROCEDURES Final Result from Last 3 Months or Most Recently Relevant to Health Maintenance Insurance [address] [place] [id number] [employer] Care Teams Mold Changer Relationship Specialty Start Date End Date Rosa Hanson PCP - General 11/22/23
== END 2024-09-12 09:55 | disposition home or self-care (01) ==
LOC: HO.HMCFM 09:17
PROVIDERS: PCP Physician Assistant; Visit Provider Physician Assistant
DX: R79.89 Other specified abnormal findings of blood chemistry (principal); I10 Essential (primary) hypertension; E11.65 Type 2 diabetes mellitus with hyperglycemia; E78.5 Hyperlipidemia, unspecified

== ENCOUNTER → 2024-09-12 09:16 | Outpatient (BNVA) | payer OTHER, SELFPAY | PROVIDERS: PCP Physician Assistant; Visit Provider Physician Assistant | DX: Z13.89 Encounter for screening for other disorder (principal) | CPT/HCPCS: 99212 ==

== ENCOUNTER 2024-09-12 10:01 | Outpatient (REF) | payer OTHER, SELFPAY ==
[2024-09-12 12:10] LABS: Estimated Average Glucose 235 mg/dL; Hemoglobin A1C 263.9703 umol/L; Hemoglobin A1c % 9.8 % (<6.0); Total Hemoglobin (HGBA1C) 3167.9455 umol/L
[2024-09-12 12:12] LABS: Basophils Percent Auto 0.5 % (0-2); Eosinophils Absolute Auto 0.2 X10*3/uL (0.0-0.4); Eosinophils Percent Auto 3.4 % (0-4); Hemoglobin 11.9 g/dl (12.0-16.0); Imm Gran Abs Auto 0.01 X10*3/uL (0.00-0.03); Imm Gran Pct Auto 0.2 % (0.0-0.4); Lymphocytes Absolute Auto 1.7 X10*3/uL (1.2-4.9); Lymphocytes Percent Auto 26.9 % (20-40); MANUAL DIFF FLAG NO; Mean Corpuscular HGB Conc 31.3 g/dl (31.0-35.0); Mean Corpuscular Hemoglobin 26.5 pg (27.0-33.0); Mean Corpuscular Volume 84.6 fL (80.0-98.0); Mean Platelet Volume 12.6 fL (9.4-12.3); Monocytes Absolute Auto 0.4 X10*3/uL (0.1-1.2); Monocytes Percent Auto 6.1 % (2-11); Neutrophils Absolute Auto 3.9 x10*3/uL (2.0-8.3); Neutrophils Percent Auto 62.9 % (45-73); Platelet Count 205 X10*3/uL (160-400); Red Blood Count 4.49 X10*6/uL (4.20-5.50); White Blood Count 6.2 X10*3/uL (4.8-10.8)
[2024-09-12 13:05] LABS: Alanine Aminotransferase 64 U/L (0-31); Albumin Level 4.3 g/dL (3.5-5.0); Alkaline Phosphatase 79 U/L (39-117); Anion Gap 11 (12-20); Aspartate Amino Transferase 46 U/L (5-31); Bilirubin Total 0.7 mg/dL (0.0-1.0); Blood Urea Nitrogen 8 mg/dL (9-16); Calcium 9.3 mg/dL (8.4-10.2); Carbon Dioxide 25 mmol/L (22-29); Chloride 109 mmol/L (96-108); Estimated Glomerular Filt Rate > 60; Glucose Fasting 150 mg/dL (60-99); Sodium 141 mmol/L (135-145); Total Protein 7.4 g/dL (6.5-8.0)
== END 2024-09-12 10:02 | disposition home or self-care (01) ==
LOC: HO.WFDLDS 10:01
PROVIDERS: Visit Provider Physician Assistant
DX: E11.65 Type 2 diabetes mellitus with hyperglycemia (principal); E78.5 Hyperlipidemia, unspecified; R79.89 Other specified abnormal findings of blood chemistry
CPT/HCPCS: 36415; 80053; 83036; 85025; 99212

== ENCOUNTER 2024-10-16 09:13 | Outpatient (AMB) | payer OTHER, SELFPAY ==
--- NOTE | 2024-10-16 09:20 | A.OFFPC_ITS ---
Vital Signs 10/16/24 09:21 Height 4 ft 11.84 in Weight 161 lb 6 oz BMI 31.7 BP 112/76 Blood Pressure Location Lt brachial Position Sitting Respiration 14 Pulse 92 Pulse Source Pulse Oximeter Temp 98.6 F Temp Source Oral Pulse Oximetry (%) 97 Oxygen Delivery Method Room Air Intake Visit Reasons: dm Intake Note: Diabetes follow up Level Vial Setter Required: No Level Vial Setter Name: motor vehicle parts interpreter declined Accompanied by: Son Allergies No Known Allergies Allergy (Verified 10/16/24 09:20) Medication List - Last Reconciled 10/16/24 by Roselyn Mosley PA-C atorvastatin 20 mg PO DAILY cholecalciferol (vitamin D3) (Vitamin D3) 50 mcg PO DAILY levothyroxine 50 mcg PO DAILY lisinopril 2.5 mg PO DAILY loratadine (Allergy Relief (loratadine)) 10 mg PO DAILY metformin 1,000 mg PO BID semaglutide (Ozempic) 0.5 mg (0.736 mL) subcut QWEEK triamcinolone acetonide 0.025% 1 appl topical BID 7 days Tobacco use date assessed: 10/16/24 Dental Screening Dental Screen Date: 06/27/24 HPI dm HPI Details Patient is a 54-year-old female who presents today for a follow up. She was supposed to get iaging done prior to today's appointment but never did t his. No acute concerns today Son here for translation Endo: dm- Last A1c was 9.8. dx around 2009. Never had DM education and is adamant that she does not want this. Denies any hypoglycemic events-but refuses to check blood sugars. She is currently on metformin 1000 mg twice a day, and Ozempic 0.25 mg weekly She says that she is tolerating the Ozempic. No adverse effects and it still does not check blood sugars -did not tolerate glipizide as it caused dizziness, Trulicity caused injection site pain and skin irritation along with mild nausea. -not interested at this point in diabeti c Education. hypothyroid- last TSH was WNL. Currently on levothyroxine 50 mcg. CV: Blood pressure today in the office is 112/76. She is currently on lisinopril 2.5 mg daily. Cholesterol is managed with atorvastatin 20 mg. LDL 62. GI: Lfts were elevated, has not yet repeated ordered tests or u/s. Has a ultrasound booked for tomorrow but states that she has to reschedule. She states that she booked it to next month. Mammo: many years ago - booked 09/05 but then she canceled and states that she has a still reschedule this and we will do this on her own. Colonoscopy: never had- scheduled this summer Pap/Ui Architect: referred at last visit Bone density: never had, lmp 2020. 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 [email or web address] Current occupational exposures/hazards: No Cognitive needs: No Hearing needs: No Vision needs: Yes (glasses) Questionnaire Thrive Questionnaire Date Thrive assessed: 06/27/24 I am a: Patient What is your living situation today?: I choose not to answer this question Within the past 12 months, did the food you bought not last and you didn't have the money to get more?: I choose not to answer this question Within the past 12 months, did you worry whether your food would run out before you got money to buy more?: I choose not to answer this question Do you have trouble paying for medicines?: No Do you have trouble getting transportation to medical appointments?: I choose no t to answer this question Do you have trouble paying your heating and electricity bill?: I choose not to answer this question Do you have trouble taking care of your child, family member or friend?: I choose not to answer this question Do you have trouble with day-to-day activities such as bathing, preparing meals, shopping, managing finances, etc.?: I choose not to answer this question Are you currently unemployed and looking for a job?: I choose not to answer this question Are you interested in more education?: I choose not to answer this question Please select the resources that you would like help with: None THRIVE Score: 0 AUDIT C Alcohol Use Questionnaire (AUDIT-C) 1. How often do you have a drink containing alcohol?: Never 3. How often do you have six or more drinks on one occasion?: Never Total Score: 0 BRAEDEN-7 AMB Questionnaire BRAEDEN-7 Date BRAEDEN - 7 assessed: 06/27/24 Source: Developed by Drs. Jarrod Gonzales, Dannielle Lake, Sam Celestin and colleagues, with an educational kristofer from [employer]. Physical exam (Primary Care) Vital Signs: Last Vital Signs Temp 98.6 F 10/16/24 09:21 Pulse 92 10/16/24 09:21 Resp 14 10/16/24 09:21 BP 112/76 10/16/24 09:21 Pulse Ox 97 10/16/24 09:21 Oxygen Delivery Method Room Air 10/16/24 09:21 BMI result Body Mass Index 31.7 Tobacco/Smoking Status: Tobacco use Status Tobacco use date assessed 10/16/24 10/16/24 09:25 Patient Tobacco Use Status Former Tobacco user 10/16/24 09:25 Tobacco use type Smokeless Tobacco (chewing 10/16/24 09:25 tobacco) e-Cigarette/Vaping Use Never Used 10/16/24 09:25 Thrive Assessment: Date of Thrive Assessment Date Thrive assessed 06/27/24 10/16/24 09:25 Const Orientation/consciousness: patient oriented x3 HENMT Ears: hearing grossly normal bilaterally Neck Thyroid: Thyroid normal Lymphatic: no lymphadenopathy noted Resp Auscultation: clear to auscultation bilaterally Cardio Rate: regular rate Rhythm: regular rhythm Heart sounds: S1 normal heart sound present and S2 normal heart sound present GI Inspection: Yes normal to inspection Palpation (GI): Soft to palpation and Other GI palpation findings present (nontender, no cva tenderness) Auscultation: normoactive bowel sounds Rectal Exam - Female: deferred Skin General skin exam: no rashes or lesions noted Neuro General: patient oriented x3, gait normal and no focal motor deficits Coding Level of Care Code Est Pt Level 4 (96044) Complex EM visit Add On G2211 Diagnoses Uncontrolled type 2 diabetes mellitus with hyperglycemia, without long-term current use of insulin E11.65 HTN (hypertension) I10 Hypothyroid E03.9 Assessment & Plan Assessment & Plan (1) Uncontrolled type 2 diabetes mellitus with hyperglycemia, without long-term current use of insulin: Code(s): E11.65 - Type 2 diabetes mellitus with hyperglycemia Category: Medical Plan: Increase Ozempic to 0.5 mg weekly Continue metformin 1000 mg twice a day Encouraged her to monitor blood sugars Reviewed signs and symptoms of hyper and hypoglycemia that would require emergent medical treatment. Encouraged her to increase physical activity as tolerated We will recheck labs in 2 months. Follow up at that time (2) HTN (hypertension): Code(s): I10 - Essential (primary) hypertension Category: Medical Plan: WNL. Continue current regimen (3) Hypothyroid: Code(s): E03.9 - Hypothyroidism, unspecified Category: Medical Plan: We will monitor. Orders: Orders Comprehensive Met. Panel Today E03.9 - Hypothyroidism, unspecified, E11.65 - Type 2 diabetes mellitus with hyperglycemia, I10 - Essential (primary) hypertension Complete Blood Count Auto Diff Today E03.9 - Hypothyroidism, unspecified, E11.65 - Type 2 diabetes mellitus with hyperglycemia, I10 - Essential (primary) hypertension Hemoglobin A1c Today E03.9 - Hypothyroidism, unspecified, E11.65 - Type 2 diabetes mellitus with hyperglycemia, I10 - Essential (primary) hypertension, R73.01 - Impaired fasting glucose Microalbumin, Random (w Creat) Today E03.9 - Hypothyroidism, unspecified, E11.65 - Type 2 diabetes mellitus with hyperglycemia, I10 - Essential (primary) hypertension Medications: New semaglutide (Ozempic) 0.5 mg (0.736 mL) subcut QWEEK 3 mL 5RF Discontinued semaglutide (Ozempic) Discontinued Reason: Doctor's Order 0.25 mg (0.368 mL) subcut QWEEK 3 mL 3RF
[2024-10-16 09:21] VITALS: BP 112/76; PULSE 92; RESP 14; TEMP 37; O2SAT 97; BMI 31.7
--- OUTSIDE RECORDS SUMMARY | 2024-10-16 09:22 | XMS_ITS | Clinical Summary ---
Author Organization [facility] Address [address] [place] [address] Care Team Providers Care Supervisor Road Administrator Name Role Phone Unavailable Primary Care Provider [...] active allergies Medications acetaminophen (TYLENOL) 325 mg tabletIndications:Le ft elbow pain Take 1 Tablet by mouth every 6 (six) hours as needed for pain 30 Tablet 1 10/26/19 24 Active losartan (COZAAR) 25 mg tabletIndications:Pr imary hypertension Take 1 Tablet by mouth every morning for blood pressure 90 Tablet 1 02/01/20 24 Active rosuvastatin (CRESTOR) 5 mg tabletIndications:Mi xed hyperlipidemia,Hyper triglyceridemia Take 1 Tablet by mouth nightly at bedtime New Rx. Patient to discontinue Gemfibrozil 90 Tablet 02/01/20 24 Active allopurinoL (ZYLOPRIM) 300 mg tabletIndications:Hy peruricemia Take 1 Tablet by mouth once daily To decrease uric acid 90 Tablet 2 02/01/20 24 Active fenofibrate nanocrystallized (TRICOR) 48 mg tabIndications:Hyper triglyceridemia,Mixe d hyperlipidemia Take 1 Tablet by mouth daily . New Rx 90 Tablet 07/31/19 25 Active Active Problems Problem Noted Date Diagnosed [...] intracranial flow-voids at the level of the [place] of [place] are preserved. The dural venous [...] 88 04/18/2024 10:46 AM EST Temperature 36.9 C (98.4 F) 04/18/2024 10:46 AM EST Respiratory Rate 16 04/18/2024 10:46 AM EST [...] 2014 Imm-Zoster, Recombinant (1 of 2) 2019 Tobacco Screening 01/19/2024 01/18/2023, 05/17/2017 Depression Annual Screen 2024 05/14/2015 Annual Wellness (Adult): Ind icated (All Coverage) 07/05/2024 07/06/2023, 09/19/2018, 05/17/2017, Additional history exists Dental Prophy 01/09/2025 01/08/2024, 06/15, 11/16/2022 Lipid Screening 01/17/2025 01/18/2024, 10/15, 07/12/2023, Additional history exists Hypertension Screening (#1) 04/18/2025 Diabetes Screening 01/17/2027 01/18/2024, 0 10/28/2023, 07/12/2023, Additional history exists Imm-DTaP/Tdap/Td (3 - Td or Tdap) 07/05/2033 07/06/2023, 07/06/2011, 03/01/2011 Imm-Hepatitis B Completed 08/15/2012, 08/16, 08/09/2011 HIV Screening Completed 02/13/2013 Hepatitis C Screening Completed 02/13/2013 [id number] Completed 01/17/2024, 01/15, 04/06/2021, Additional history exists Imm-Influenza Completed 01/17/2024, 07/2022, 03/16/2022, Additional history exists Alcohol and Drug Screen Completed 04/18/19, 07/06/2023, 07/13/2022, Additional history exists Goals Goal Patient Goal Type Associated Problems Recent Progress Patient-Stated? Author Blood Pressure < 140/90 Blood Pressure HTN (hypertension) 124/80( 025 10:46 AM EST) No Makayla Lake, GarfieldD Procedures Procedure Name Priority Date/Time Associated Diagnosis Comments COMPREHENSIVE METABOLIC PANEL Routine 01/18/2024 9:53 AM EDT Mixed hyperlipidemia Hypertriglyceridem ia LIPID PANEL Routine 01/18/2024 9:53 AM EDT Mixed hyperlipidemia Hypertriglyceridem ia PROPHYLAXIS - ADULT Routine 01/08/2024 9 :40 AM EDT Caries ANTIBODY HIV-1&HIV-2 SINGLE RESULT Routine 02/13/2013 3:16 PM EDT Needle stick injury ACUTE HEPATITIS PANEL Routine 02/13/2013 3:16 PM EDT Needle stick injury from Last 3 Months or Most Recently Relevant to Health Maintenance Results * (ABNORMAL) LIPID PANEL (01/18/2024 9:53 AM EDT) CHOLESTEROL, TOTAL 311(H) <200 mg/dL [facility] HDL CHOLESTEROL 40 > OR = 40 mg/dL [facility] TRIGLYCERIDES 2,415(H) <150 mg/dL [facility] Comment: Verified by repeat analysis. If a non-fasting specimen was collected, consider repeat triglyceride testing on a fasting specimen if clinically indicated. Alvaro hernandez al. J. of Clin. Lipidol. 2015;9:129-169. There is increased risk of pancreatitis when the triglyceride concentration is very high (> or = 500 mg/dL, especially if > or = 1000 mg/dL). Alvaro et al. J. of Clin. Lipidol. 2015;9:129-169. LDL-CHOLESTEROL See Note [employer] Comment: LDL cholesterol not calculated. Triglyceride levels greater than 400 mg/dL invalidate calculated LDL results. Reference range: <100 Desirable range <100 mg/dL for primary prevention; <70 mg/dL for patients with CHD or diabetic patients with > or = 2 CHD risk factors. LDL-C is now calculated using the Renato calculation, which is a validated novel method providing better accuracy than the Friedewald equation in the estimation of LDL-C. Evan SS et al. VIVIAN. 2013;310(19): 4826-6568 (http://education.G2One Network/faq/NOM397) CHOL/HDLC RATIO 7.8(H) <5.0 (calc) [facility] NON-HDL CHOLESTEROL 271(H) <130 mg/dL (calc) [facility] Comment: Non-HDL level > or = 220 [...] AM EDT 01/18/2024 9:54 AM EDT Narrative [facility] - 01/19/2024 1:34 PM EDT FASTING:YES us Mary Yanez PA-C LAB - BLOOD DRAW Final Resu lt [facility] [address] [place] [address], [facility] [address] [place] [phone] * COMPREHENSIVE METABOLIC PANEL (01/18/2024 9:53 AM EDT) [facility] GLUCOSE 97 65 - 99 mg/dL [facility] Comment: Fasting reference interval UREA NITROGEN (BUN) 15 7 - 25 mg/dL [facility] CREATININE (blood) 1.14 0.70 - 1.30 mg/dL [facility] EGFR 76 > OR = 60 mL/min/1. 73m2 [facility] BUN/CREATININE RATIO SEE NOTE: 6 - [facility] Comment: Not Reported: BUN and Creatinine are within reference range. SODIUM 135 135 - 146 mmol/L [facility] POTASSIUM 3.7 3.5 - 5.3 mmol/L [facility] CHLORIDE 101 98 - 110 mmol/L [facility] CARBON DIOXIDE 23 20 - 32 mmol/L [facility] CALCIUM 9.7 8.6 - 10.3 mg/dL [facility] PROTEIN, TOTAL 7.3 6.1 - 8.1 g/dL [facility] ALBUMIN 4.9 3.6 - 5.1 g/dL [facility] GLOBULIN 2.4 1.9 - 3.7 g/dL (calc) [facility] ALBUMIN/GLOBULI N RATIO 2.0 1.0 - 2.5 (calc) [facility] BILIRUBIN, TOTAL 0.7 0.2 - 1.2 mg/dL [facility] ALKALINE PHOSPHATASE 46 35 - 144 U/L [facility] AST 32 10 - 35 U/L [facility] Comment: Results slightly increased due to lipemia. ALT 35 9 - 46 U/L [facility] Blood Blood / Unknown 01/18/2024 9 :53 AM EDT 01/18/2024 9:54 AM EDT Narrative [facility] - 01/19/2024 1:34 PM EDT FASTING:YES Mary Yanez PA-C LAB - BLOOD DRAW Final Resu lt [employer] [address] [address], [facility] [address] [address] * HIV-1 & HIV-2 ANTIBODIES (02/13/2013 3:16 PM EDT) HIV 1 AND 2 ANTIBODY SCREEN NEGATIVE NEGATIVE [facility] Comment:Performer: [facility] (ML) Blood specimen (specimen) Blood / Unknown 02/13/2013 3:16 PM EDT 02/13/2013 3:18 PM EDT [facility] - 02/14/2013 8:07 AM EDT [employer] [address] [place] [address] [place] [id number] ORD# [id number] Charlie Sierra MD LAB - BLOOD DRAW Edited Performing Organization Address City/[facility]/ZIP Co de Phone Number [facility] [address] [place] [address], [place] [phone] * (ABNORMAL) ACUTE HEPATITIS PANEL (02/13/2013 3:16 PM EDT) HEPATITIS B SURFACE ANTIGEN NEGATIVE NEGATIVE [facility] Comment:Performer: [facility] (ML) HEPATITIS C VIRUS ANTIBODY NEGATIVE NEGATIVE [facility] Comment:Performer: [facility] (ML) HEPATITIS B CORE ANTIBODY IGM NEGATIVE NEGATIVE [facility] Comment:Performer: [facility] (ML) HEPATITIS A ANTIBODY TOTAL POSITIVE(A) NEGATIVE [facility] Comment:Performer: [facility] (ML) Blood specimen (specimen) Blood / Unknown 02/13/2013 3:16 PM EDT 02/13/2013 3:18 PM EDT [facility] - 02/13/2013 7:00 PM EDT [employer] [address] [place] [place] [address] PT ID [id number] ORD# [id number] Charlie Sierra MD LAB - BLOOD DRAW Edited Performing Organization Address City/[facility]/ZIP Co de Phone Number [facility] [address] [place] [address], [place] [phone] from Last 3 Months or Most Recently Relevant to Health Maintenance Insurance [employer] Member Subscriber Plan / Payer (Ef fective 2024-Present) Name:Martin Lara Relation to Subscriber:Self Name:Martin Lara Payer ID:[id number] Type:Indemnity Address: [address] [address] [facility] NET
--- OUTSIDE RECORDS SUMMARY | 2024-10-16 09:22 | XMS_ITS | Clinical Summary ---
Author Organization [facility] Address [address] [place] [address] Phone Care Team Providers Care Production Administrative Assistant Name Role Phone Rosa Hanson Primary Care Provider [phone] Medications polyethylene glycol (Golytely) 236-22.74-6.74 -5.86 gram [...] Team Description 08/13/2024 Telephone Gastroenterology - [address] [address] Ran High MD Special Procedure [...] Health Maintenance Due Date Last Done Comments Diabetes: Annual Foot Exam 1982 Diabetes: Annual Retina Eye Exam 1982 Cervical Cancer Screening: Pap Smear 1993 Breast Cancer Screening 05/14/2021 05/14/2019 COVID-19 Vaccine () 12/17/2023 09/02/2020, 08/01/2020 Colorectal Cancer Screening: Stool Based Tests (FOBT/FIT) 03/10/2024 10/04/2022 HIV Screening 03/10/2024 Social Influencers of Health Screening 03/10/2024 Depression Screening 09/25/2024 09/26/2023 Diabetes: Annual Urine Albumin-Creatinine Ratio (uACR) 09/25/2024 09/26/2023, 06/02/2022, 12/23/2020, Additional history exists Diabetes: Annual GFR (Glomerular Filtration Rate) 09/25/2024 09/26/2023 Diabetes: Blood Sugar Control Test (HGBA1C) 09/25/2024 09/26/2023 Hypertension/CHF/CAD Annual BMP Blood Test 09/25/2024 09/26/2023 Influenza Vaccine (Season Ended) 2024 03/17/2021, 01/17/2020, 04/03/2019, Additional history exists Cholesterol Screening (Lipid Panel) 09/25/2028 09/26/2023, 09/26/2023, 06/02/2022, Additional history exists DTaP,Tdap,and Td Vaccines (4 - Td or Tdap) 07/22/2031 07/21/2021, 07/06/2011, 03/01/2011 MMR Vaccines Aged Out 07/16/2011, 03/01/2011 No lo nger eligible based on patient's age to complete this topic Hepatitis B Vaccines Completed 02/09/2012, 09/08/2011, 08/09/2011 Hepatitis C Screening Completed 12/23/2020 Pneumococcal Vaccine: 50+ Years Completed 03/22/2023, 05/31/2012 Pneumococcal Vaccine: Pediatrics (0 to 5 Years) and At-Risk Patients (6 to 64 Years) Aged Out 03/22/2023, 05/31/2012 No longer eligibl e based on patient's age to complete this topic Zoster Vaccines Completed 03/22/2023, 12/15/2022 HIB Vaccines Aged Out No longer eligi [...] to complete this topic RSV Immunization Patients Under 20 months Aged Out No longer eligible based on patient's age to complete this topic Varicella Vaccines Aged Out No longer eligible based on patient's age to complete this topic Procedures Procedure Name Priority Date/Time Associated Diagnosis Comments [facility] SCREENING DIGITAL Routine 05/14/2019 1:37 PM EST Encounter for screening mammogram for malignant neoplasm of breast from Last 3 Months or Most Recently Relevant to Health Maintenance Results * [facility] SCREENING DIGITAL (05/14/2019 1:37 PM EST) Anatomical Region Laterality Modality Mammography 05/14/2019 10:2 2 AM EST Narrative 05/14/2019 1:37 PM EST [facility] Diagnostic Imaging Department [address] [place] [address] Patient: MARTIN GARCIA Curtis /Age/Sex: 1970 - 49 - F Unit#: [id number] [facility]Ordering Site: D[facility]ID/[facility] Ordering Physician: MARIA EUGENIA MERCER [facility] Screening Digital - 05/14/195 History: Bilateral breast cancer screening. Technique: Bilateral digital mammography. Conventional CC and MLO projections with tomosynthesis MLO views and computer aided detection. Findings: Comparison: Radiology and Imaging incorporated [facility] 07/04/2018 and 05/12/2017. Breast tissue is mostly fatty replaced (category a density) bilaterally (as calculated by [employer] software). There are benign calcifications bilaterally. There is no suspicious group of microcalcification, no suspicious mass, architectural distortion or suspicious asymmetry. Impression: No evidence of malignancy. BIRADS category 2, benign findings, 3342F 58870, [address] Note: Patient information entered into a reminder system with a target due date for the next mammogram; PQRI II 7070F Dictating Physician: BOY GARZA MD Electronically Signed by: BOY GARZA MD Dic Date/Time: 05/14/19 1336 Sign date/Time: 05/14/19 1337 Procedure Note Boy Garza - 04/06/2022 [facility] Diagnostic Imaging Department [address] [place] [address] Patient: MARTIN GARCIA Curtis /Age/Sex: 1970 - 49 - F Unit#: [id number] Location/Status: [facility] CLI Mnemonic/Ordering Site: [facility] Ordering Physician: MARIA EUGENIA MERCER [facility] Screening Digital - 05/14/19 - 1045 History: Bilateral breast cancer screening. Technique: Bilateral digital mammography. Conventional CC and MLOprojections with tomosynthesis MLO views and computer aided detection. Findings: Comparison: Radiology and Imaging incorporated [facility] 07/04/2018 and 05/12/2017. Breast tissue is mostly fatty replaced (category a density) bilaterally(as calculated by Super[employer] software). There are benigncalcifications bilaterally. There is no suspicious group of microcalcification, nosuspicious mass, architectural distortion or suspicious asymmetry. Impression: No evidence of malignancy. BIRADS category 2, benign findings, 3342F 04948, [address]119 Note: Patient information entered into a reminder system with a targetdue date for the next mammogram; PQRI II 7080F Dictating Physician: BOY GARZA MD Electronically Signed by: BOY GARZA MD Dic Date/Time: 05/14/19 1336 Sign date/Time: 05/14/19 1337 [place] PROFESSIONAL SERVICES SPECIALIST IMG BI PROCEDURES Final Result from Last 3 Months or Most Recently Relevant to Health Maintenance Insurance [employer] [address] [place], [place] [id number] [employer] Care Teams Production Administrative Assistant Relationship Specialty Start Date End Date Rosa Hanson PCP - General 11/22/23
== END 2024-10-16 09:36 | disposition home or self-care (01) ==
LOC: HO.HMCFM 09:13
PROVIDERS: PCP Physician Assistant; Visit Provider Physician Assistant
DX: E11.65 Type 2 diabetes mellitus with hyperglycemia (principal); I10 Essential (primary) hypertension; E03.9 Hypothyroidism, unspecified

== ENCOUNTER → 2024-10-16 09:13 | Outpatient (BNVA) | payer OTHER, SELFPAY | PROVIDERS: PCP Physician Assistant; Visit Provider Physician Assistant | DX: E11.65 Type 2 diabetes mellitus with hyperglycemia (principal); I10 Essential (primary) hypertension; E03.9 Hypothyroidism, unspecified | CPT/HCPCS: 99212 ==

== ENCOUNTER 2024-10-20 08:01 | Emergency (ER) | payer OTHER, SELFPAY ==
--- NOTE | ~2024-10-20 | XR_ITS ---
CLINICAL HISTORY: right lower rib lung pain 2 view chest x-ray Comparison: None provided Findings: A 1 cm nodular opacity seen at the left base projecting over the posterolateral aspect of the 9th rib. Heart size is normal. No acute fracture. IMPRESSION: A 1 cm nodular opacity seen at the left base projecting over the posterolateral aspect of the 9th rib. Lung nodule versus rib lesion suspected. Please correlate with chest CT as an outpatient. This document has been electronically signed by: Dante Garcia MD on 10/20/2024 09:47:09
--- NOTE | ~2024-10-20 | US_ITS ---
CLINICAL HISTORY: RUQ pain after eating --- Additional Notes or Special Instructions: look at GB, ducts, liver, pancreas US abdomen limited Comparison: None provided Findings: The visualized pancreas is normal. The aorta and inferior vena cava are normal caliber. The liver demonstrates increased echogenicity compatible with steatosis. There is no intrahepatic bile duct dilatation. The common duct is 3 mm in diameter. Status post cholecystectomy. The main portal vein is antegrade. No ascites. IMPRESSION: 1. Status post cholecystectomy. 2. Increased hepatic echogenicity compatible with steatosis. This document has been electronically signed by: Dante Garcia MD on 10/20/2024 10:05:23
[2024-10-20 08:03] VITALS: BP 119/72; PULSE 73; RESP 16; TEMP 35.9; O2SAT 100; BMI 26.8
--- OUTSIDE RECORDS SUMMARY | 2024-10-20 08:21 | XMS_ITS | Clinical Summary ---
Author Organization [facility] Address [address] [place] [address] Care Team Providers Care Senior Research Fellow Name Role Phone Unavailable Primary Care Provider [...] intracranial flow-voids at the level of the [place] of [place] are preserved. The dural venous [...] 2014 Fecal DNA 2014 Flexible Sigmoidoscopy 2014 Imm-Pneumococcal 50+ (1 of 1 - PCV) 2019 Imm-Zoster, Recombinant (1 of 2) 2019 Tobacco Screening 01/19/2024 01/18/2023, 05/17/2017 Depression Annual Screen 2024 05/14/2015 Annual Wellness (Adult): Ind icated (All Coverage) 07/05/2024 07/06/2023, 09/19/2018, 05/17/2017, Additional history exists Imm-Influenza (#1) 2024 01/17/2024, 1 , 03/16/2022, Additional history exists Dental Prophy 01/09/2025 01/08/2024, 06/15, 11/16/2022 Lipid Screening 01/17/2025 01/18/2024, 10/15, 07/12/2023, Additional history exists Hypertension Screening (#1) 04/18/2025 Diabetes Screening 01/17/2027 01/18/2024, 0 10/28/2023, 07/12/2023, Additional history exists Imm-DTaP/Tdap/Td (3 - Td or Tdap) 07/05/2033 07/06/2023, 07/06/2011, 03/01/2011 Imm-Hepatitis B Completed 08/15/2012, 08/16, 08/09/2011 HIV Screening Completed 02/13/2013 Hepatitis C Screening Completed 02/13/2013 [id number] Completed 01/17/2024, 01/15, 04/06/2021, Additional history exists Alcohol and Drug Screen Completed 04/18/19, 07/06/2023, 07/13/2022, Additional history exists Goals Goal Patient Goal Type Associated Problems Recent Progress Patient-Stated? Author Blood Pressure < 140/90 Blood Pressure HTN (hypertension) 124/80( 025 10:46 AM EST) Makayla Guadarrama, PharmD Procedures Procedure Name Priority Date/Time Associated [...] AM EDT) CHOLESTEROL, TOTAL 311(H) <200 mg/dL [facility] HDL CHOLESTEROL 40 > OR = 40 mg/dL [facility] TRIGLYCERIDES 2,415(H) <150 mg/dL [facility] Comment: Verified by repeat analysis. If a non-fasting specimen was collected, consider repeat triglyceride testing on a fasting specimen if clinically indicated. Alvaro et al. J. of Clin. Lipidol. 2015;9:129-169. There is increased risk of pancreatitis when the triglyceride concentration is very high (> or = 500 mg/dL, especially if > or = 1000 mg/dL). Alvaro et al. J. of Clin. Lipidol. 2015;9:129-169. LDL-CHOLESTEROL See Note [facility] [employer] Comment: LDL cholesterol not calculated. Triglyceride levels [...] LDL-C. Evan SS et al. VIVIAN. 2013;310(19): 8393-1763 (http://education.ZoomInfo/faq/MOJ911) CHOL/HDLC RATIO 7.8(H) <5.0 (calc) [employer] NON-HDL CHOLESTEROL 271(H) <130 mg/dL (calc) [employer] Comment: Non-HDL level > or = 220 [...] AM EDT 01/18/2024 9:54 AM EDT Narrative [facility] - 01/19/2024 1:34 PM EDT FASTING:YES us Mary Yanez PA-C LAB - BLOOD DRAW Final Resu lt [facility] [address] [place] [address], [employer] [address] [place] [phone] * COMPREHENSIVE METABOLIC PANEL (01/18/2024 9:53 AM EDT) [facility] GLUCOSE 97 65 - 99 mg/dL [employer] Comment: Fasting reference interval UREA NITROGEN (BUN) 15 7 - 25 mg/dL [facility] CREATININE (blood) 1.14 0.70 - 1.30 mg/dL [facility] EGFR 76 > OR = 60 mL/min/1. 73m2 [facility] BUN/CREATININE RATIO SEE NOTE: 6 - [facility] Comment: Not Reported: BUN and Creatinine are within reference range. SODIUM 135 135 - 146 mmol/L [facility] POTASSIUM 3.7 3.5 - 5.3 mmol/L [facility] CHLORIDE 101 98 - 110 mmol/L [facility] CARBON DIOXIDE 23 20 - 32 mmol/L [facility] CALCIUM 9.7 8.6 - 10.3 mg/dL [facility] PROTEIN, TOTAL 7.3 6.1 - 8.1 g/dL [facility] ALBUMIN 4.9 3.6 - 5.1 g/dL [facility] GLOBULIN 2.4 1.9 - 3.7 g/dL (calc) [facility] ALBUMIN/GLOBULI N RATIO 2.0 1.0 - 2.5 (calc) [facility] BILIRUBIN, TOTAL 0.7 0.2 - 1.2 mg/dL [facility] ALKALINE PHOSPHATASE 46 35 - 144 U/L [facility] AST 32 10 - 35 U/L [facility] Comment: Results slightly increased due to lipemia. ALT 35 9 - 46 U/L [facility] Blood Blood / Unknown 01/18/2024 9 :53 AM EDT 01/18/2024 9:54 AM EDT Narrative [facility] - 01/19/2024 1:34 PM EDT FASTING:YES us Mary Yanez PA-C LAB - BLOOD DRAW Final Resu lt [facility] [address] [address], [facility] [address] [place] [address] * HIV-1 & HIV-2 ANTIBODIES (02/13/2013 3:16 PM EDT) HIV 1 AND 2 ANTIBODY SCREEN NEGATIVE NEGATIVE [facility] Comment:Performer: [facility] (ML) Blood specimen (specimen) Blood / Unknown 02/13/2013 3:16 PM EDT 02/13/2013 3:[address] [facility] - 02/14/2013 8:07 AM EDT [employer] [address] [place] [address] [place] [id number] ORD# [id number] Charlie Sierra MD LAB - BLOOD DRAW Edited [facility] [address] [place] [address], [place] [phone] * (ABNORMAL) ACUTE HEPATITIS PANEL (02/13/2013 3:16 PM EDT) HEPATITIS B SURFACE ANTIGEN NEGATIVE NEGATIVE [facility] Comment:Performer: [facility] (ML) HEPATITIS C VIRUS ANTIBODY NEGATIVE NEGATIVE [facility] Comment:Performer: [facility] (ML) HEPATITIS B CORE ANTIBODY IGM NEGATIVE NEGATIVE [facility] Comment:Performer: [facility] (ML) HEPATITIS A ANTIBODY TOTAL POSITIVE(A) NEGATIVE [facility] Comment:Performer: [facility] (ML) Blood specimen (specimen) Blood / Unknown 02/13/2013 3:16 PM EDT 02/13/2013 3:[address] [facility] - 02/13/2013 7:00 PM EDT [employer] [address] [place] [address] [place] [id number] ORD# [id number] Charlie Sierra MD LAB - BLOOD DRAW Edited Performing Organization Address City/[facility]/ZIP Co de Phone Number [address] [address], [place] [phone] from Last 3 Months or Most Recently Relevant to Health Maintenance Insurance [employer] [place] [address] [place] [address] [email or web address] [facility] Member Subscriber Plan / Payer (Ef fective 2024-Present) Name:Martin Lara Relation to Subscriber:Self Name:Martin Lara Payer ID:[id number] Type:Indemnity Address: [id number] [place] [address] [facility] NET
[2024-10-20 08:30] LABS: MANUAL DIFF FLAG NO
[2024-10-20 08:31] LABS: Hematocrit 35.1 % (37.0-47.0); Hemoglobin 11.6 g/dl (12.0-16.0); Imm Gran Abs Auto 0.02 X10*3/uL (0.00-0.03); Imm Gran Pct Auto 0.4 % (0.0-0.4); Lymphocytes Absolute Auto 1.5 X10*3/uL (1.2-4.9); Mean Corpuscular HGB Conc 33.0 g/dl (31.0-35.0); Mean Corpuscular Hemoglobin 26.9 pg (27.0-33.0); Mean Corpuscular Volume 81.4 fL (80.0-98.0); NRBC Abs Auto 0.000 X10*3/uL (0.0-0.012); NRBC Pct Auto 0.0 /100WBC (0.0-0.2); Platelet Count 186 X10*3/uL (160-400); Red Blood Count 4.31 X10*6/uL (4.20-5.50); White Blood Count 5.7 X10*3/uL (4.8-10.8)
[2024-10-20 08:35] VITALS: BP 131/82; PULSE 71; RESP 18; TEMP 36.5; O2SAT 99
[2024-10-20 08:36] VITALS: BP 131/82; PULSE 72; RESP 15; O2SAT 99
[2024-10-20 08:37] LABS: Appearance Urine Clear; Glucose Urine UA 250 mg/dL (Negative); PH 6.0 (5.0-9.0); Specific Gravity - Urine 1.015 (1.005-1.025)
--- NOTE | 2024-10-20 08:41 | ED.ABDPAIN ---
HPI - Abdominal Pain General Chief Complaint: Abdominal Pain Stated Complaint: abd pain Time Seen by Provider: 10/20/24 08:14 Source: patient and sales agent protective service (armenian) Mode of arrival: ambulatory Limitations: language barrier (armenian) History of Present Illness ED Provider: SEBASTIÁN GREGORY PA-C HPI narrative: 54 year old female with pmhx significant for renal stones, HTN, hypothyroidism and uncontrolled T2DM presents to the ED today for evaluation of intermittent right upper quadrant abdominal pain since yesterday morning. Pain began after eating rice, vegetables/potatoes. Pain is localized to RUQ, primarily under her right lower ribs. No radiation. Pain is worse with deep inspiration. She describes this as a dull ache that is 8-9/10 in severity. Admits to subjective fever. She did not have a documented temperature. Denies nausea, vomiting, constipation. Admits to diarrhea at baseline secondary to her diabetes medications. Denies history of abdominal surgery. Denies known injury/ trauma to the area. Denies recent travel or long car rides. Denies calf pain/swelling. Denies cough, hemoptysis, chest pain. At present, she denies any pain. Related Data Home Medications ?Medication ?Instructions ?Recorded ?Confirmed cholecalciferol (vitamin D3) 50 50 mcg PO DAILY 06/27/24 10/16/24 mcg (2,000 unit) capsule (Vitamin D3) loratadine 10 mg capsule (Allergy 10 mg PO DAILY 06/27/24 10/16/24 Relief (loratadine)) Previous Rx's ?Medication ?Instructions ?Recorded levothyroxine 50 mcg tablet 50 mcg PO DAILY #90 tabs 06/27/24 metformin 1,000 mg tablet 1,000 mg PO BID #180 tabs 06/27/24 atorvastatin 20 mg tablet 20 mg PO DAILY #90 tabs 09/12/24 lisinopril 2.5 mg tablet 2.5 mg PO DAILY #90 tabs 09/12/24 triamcinolone acetonide 0.025 % 1 appl topical BID 7 days #15 grams 09/12/24 topical cream semaglutide 0.25 mg or 0.5 mg (2 0.5 mg (0.736 mL) subcut QWEEK #3 10/16/24 mg/3 mL) subcutaneous pen injector mL (Ozempic) Allergies Allergy/AdvReac Type Severity Reaction Status Date / Time No Known Allergies Allergy Verified 10/20/24 08:04 Review of Systems Review of Systems Yes all other systems are reviewed and are negative [facility] Past Medical History Attestation statement: The following information was validated with the patient. 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 Current occupational exposures/hazards: No Cognitive needs: No Hearing needs: No Vision needs: Yes (glasses) Physical Exam ED Vital Signs: Vital Signs - 24 hr 10/20/24 08:03 10/20/24 08:35 10/20/24 08:36 Temperature 96.7 F L 97.7 F Pulse Rate 73 71 72 Respiratory Rate 16 18 15 Blood Pressure 119/72 131/82 131/82 Pulse Oximetry 100 99 99 Oxygen Delivery Method Room Air Room Air Room Air 10/20/24 10:00 10/20/24 11:46 Temperature Pulse Rate 62 64 Respiratory Rate 21 H 15 Blood Pressure 119/72 112/75 Pulse Oximetry 98 98 Oxygen Delivery Method Room Air Room Air BMI result Body Mass Index 26.8 vital signs stable, not hypoxic or tachycardic General: Well appearing, in no acute distress. Skin: Warm, dry, intact. No rashes or lesions. Head: Normocephalic, atraumatic. EENT: Hearing is intact b/l. Conjunctiva clear. Sclera is anicteric. PERRLA. EOM intact. Moist mucous membranes.? Neck: Supple without LAD. Cardiac: Chest wall symmetric. RRR Lungs: Normal respiratory effort without accessory muscle use. CTA bilaterally. No rales, rhonchi, or wheezes.? Abdomen: Obese abdomen, soft, nondistended, mildly tender to palpation of the right upper quadrant with deep palpation only. No rebound or guarding. No palpable deformity. Back: No midline spinous or paraspinal tenderness. No step off deformity. Ext: Upper and lower extremities atraumatic, without tenderness, deformity, swelling or erythema. No calf tenderness bilaterally. Neuro: AOx3. Normal speech. Ambulating with steady gait. Course Course Course Narrative: 1029 -- CBC without leukocytosis or left shift. Normocytic anemia, H and H appears to be around patient's baseline. Chemistry without acute electrolyte abnormality requiring intervention. Random glucose 127. Normal renal function. Liver function appears to be around patient's baseline. Lipase WNL. Urine without infection. Chest x-ray without infiltrate or consolidation to suggest pneumonia. No fluid. Incidental finding of 1 cm nodular opacity to the left base projecting over posterolateral aspect of 9th rib ? Lung nodule versus rib lesion. Recommending outpatient CT scan. This is not in the region of patient's discomfort. Abdominal ultrasound shows status post cholecystectomy. Patient did not inform us that she had her gallbladder removed, stated that she had no previous abdominal surgeries. Ultrasound also shows hepatic steatosis. No other abnormalities. > PE is less likely however PERC score 1 (age). given pleuritic chest pain, will add on ddimer. work up is otherwise unreamarkable. 1211 -- ddimer 236. age adjusted dimer cut off 260. PE unlikely her vitals are stable and she is well appearing, currently asymptoatic. I have extremely low suspicion for PE and do not feel as though CT imaging is warranted at this time. will advise outpatient follow up. Patient has remained stable throughout ED visit today. Discussed worrisome signs and symptoms and when to return to the ED. All questions answered at this time. Patient is agreeable with disposition and stable for discharge. Medical Decision Making Medical Decision Making [facility] Narrative: 54 year old female with pmhx significant for renal stones, HTN, hypothyroidism and uncontrolled T2DM presents to the ED today for evaluation of intermittent right upper quadrant abdominal pain since yesterday morning. Labs, viral swabs, chest x-ray, RUQ US. Differential Diagnosis Differential Diagnoses: The differential diagnosis associated with the presentation includes anemia, electrolyte abnormality, biliary colic, cholelithiasis, cholecystitis, pleurisy, URI, viral syndrome, hepatitis, renal stones, gastritis, PUD, rib fracture/ contusion, muscle strain, PE, pneumonia Admission/Observation not indicated Lab Data [facility] Lab Attestation statement: I reviewed the patient's lab results. as above. 10/20/24 08:24 10/20/24 08:24 Labs: Lab Results 10/20/24 10/20/24 10/20/24 Range/Units 08:24 08:29 11:45 WBC 5.7 (4.8-10.8) X10*3/uL RBC 4.31 (4.20-5.50) X10*6/uL Hgb 11.6 L (12.0-16.0) g/dl Hct 35.1 L (37.0-47.0) % MCV 81.4 (80.0-98.0) fL MCH 26.9 L (27.0-33.0) pg MCHC 33.0 (31.0-35.0) g/dl RDW 13.3 (11.0-16.0) % Plt Count 186 (160-400) X10*3/uL MPV 10.5 (9.4-12.3) fL Immature Gran % (Auto) 0.4 (0.0-0.4) % Neut % (Auto) 61.9 (45-73) % Lymph % (Auto) 26.9 (20-40) % [place] % (Auto) 9.3 (2-11) % Eos % (Auto) 1.1 (0-4) % Baso % (Auto) 0.4 (0-2) % Lymph # (Auto) 1.5 (1.2-4.9) X10*3/uL [place] # (Auto) 0.5 (0.1-1.2) X10*3/uL Eos # (Auto) 0.1 (0.0-0.4) X10*3/uL Baso # (Auto) 0.0 (0.0-0.2) X10*3/uL Abs Immat Gran (auto) 0.02 (0.00-0.03) X10*3/uL Absolute Neuts (auto) 3.5 (2.0-8.3) x10*3/uL Absolute Nucleated RBC 0.000 (0.0-0.012) X10*3/uL Nucleated RBC % (auto) 0.0 (0.0-0.2) /100WBC D-Dimer High Sensitivty 236 NG/ML Sodium 140 (135-145) mmol/L Potassium 4.3 (3.3-5.1) mmol/L Chloride 108 (96-108) mmol/L Carbon Dioxide 23 (22-29) mmol/L Anion Gap 13 (12-20) BUN 8 L (9-16) mg/dL Creatinine 0.67 (0.5-1.4) mg/dL Estim Creat Clear Calc 98.3 Estimated GFR > 60 Random Glucose 127 H (60-115) mg/dL Calcium 9.2 (8.4-10.2) mg/dL Total Bilirubin 0.4 (0.0-1.0) mg/dL Direct Bilirubin 0.1 (0.0-0.5) mg/dL AST 34 H (5-31) U/L ALT 61 H (0-31) U/L Alkaline Phosphatase 87 (39-117) U/L Total Protein 7.3 (6.5-8.0) g/dL Albumin 4.2 (3.5-5.0) g/dL Lipase 34 (8-78) U/L Urine Color Yellow Urine Appearance Clear Urine pH 6.0 (5.0-9.0) Ur Specific [place] 1.015 (1.005-1.025) Urine Protein Trace (Neg-Trace) mg/dL Urine Glucose (UA) 250 H (Negative) mg/dL Urine Ketones Negative (Negative) mg/dL Urine Blood Negative (Negative) Urine Nitrite Negative (Negative) Ur Leukocyte Esterase Negative (Negative) Independent Interpretation I performed an independent interpretation of an: Plain X-Ray and Ultrasound Interpretation: CXR without infiltrate or consolidation RUQ US s/p cholecystectomy Radiology Impression Discussion of test interpretation with radiology: I have reviewed the radiologist's reading. Radiologist Impression: 2 view chest x-ray Comparison: None provided Findings: A 1 cm nodular opacity seen at the left base projecting over the posterolateral aspect of the 9th rib. Heart size is normal. No acute fracture. IMPRESSION: A 1 cm nodular opacity seen at the left base projecting over the posterolateral aspect of the 9th rib. Lung nodule versus rib lesion suspected. Please correlate with chest CT as an outpatient. US abdomen limited Comparison: None provided Findings: The visualized pancreas is normal. The aorta and inferior vena cava are normal caliber. The liver demonstrates increased echogenicity compatible with steatosis. There is no intrahepatic bile duct dilatation. The common duct is 3 mm in diameter. Status post cholecystectomy. The main portal vein is antegrade. No ascites. IMPRESSION: 1. Status post cholecystectomy. 2. Increased hepatic echogenicity compatible with steatosis. This document has been electronically signed by: Dante Garcia MD on 10/20/2024 10:05:23 Independent Historian Clinical information obtained from an independent historian. History obtained from or confirmed by: Spouse External Record Review External record reviewed: Inpatient record Prescription Management I considered prescription management with: Pain Medication Chronic Conditions Patient?s care impacted by: Diabetes Social Determinants Patient?s care significantly limited by Social Determinants of Health including: Other Social Determinant of Health Critical Care Time Critical Care Time Critical Care Time: No Discharge Plan Discharge Clinical Impression: Abdominal pain Patient Disposition: Home, Self-Care Instructions: Abdominal Pain (ED) Additional Instructions: As discussed, the x-ray of your chest shows an incidental finding of a 1cm nodular region to your left lower lung/ rib. The recommendation is for a chest CT scan out patient. I recommend you follow up with your PCP regarding this finding as this needs to be further investigated. Your work up is otherwise reassuring. You may trial tylenol or motrin at home if your pain returns. Follow up with outpatient providers as needed. Return with new or worsening symptoms. In the case of an emergency call 911. 2 view chest x-ray Comparison: None provided Findings: A 1 cm nodular opacity seen at the left base projecting over the posterolateral aspect of the 9th rib. Heart size is normal. No acute fracture. IMPRESSION: A 1 cm nodular opacity seen at the left base projecting over the posterolateral aspect of the 9th rib. Lung nodule versus rib lesion suspected. Please correlate with chest CT as an outpatient. Prescriptions: No Action Allergy Relief (loratadine) 10 mg capsule 10 mg PO DAILY cholecalciferol (vitamin D3) [Vitamin D3] 50 mcg (2,000 unit) capsule 50 mcg PO DAILY metformin 1,000 mg tablet 1,000 mg PO BID Qty: 180 1RF levothyroxine 50 mcg tablet 50 mcg PO DAILY Qty: 90 1RF triamcinolone acetonide 0.025 % cream 1 appl topical BID 7 Days Qty: 15 0RF lisinopril 2.5 mg tablet 2.5 mg PO DAILY Qty: 90 3RF atorvastatin 20 mg tablet 20 mg PO DAILY Qty: 90 3RF Ozempic 0.25 mg or 0.5 mg (2 mg/3 mL) pen injector 0.5 mg subcut QWEEK Qty: 3 5RF Referrals: Roselyn Mosley PA-C [Primary Care Provider, Endocrinology] Print Language: Other
[2024-10-20 08:43] LABS: Alanine Aminotransferase 61 U/L (0-31); Albumin Level 4.2 g/dL (3.5-5.0); Alkaline Phosphatase 87 U/L (39-117); Anion Gap 13 (12-20); Aspartate Amino Transferase 34 U/L (5-31); Blood Urea Nitrogen 8 mg/dL (9-16); Calcium 9.2 mg/dL (8.4-10.2); Carbon Dioxide 23 mmol/L (22-29); Chloride 108 mmol/L (96-108); Creatinine Clr Calc Pharmacy 98.3; Estimated Glomerular Filt Rate > 60; Lipase 34 U/L (8-78); Potassium 4.3 mmol/L (3.3-5.1); Sodium 140 mmol/L (135-145); Total Protein 7.3 g/dL (6.5-8.0)
--- NOTE | 2024-10-20 08:50 | PC.NURSE ---
Patient alert and oriented, primarily swedish speaking, presents with c/o right flank/rib pain increasing with inspiration. Denies any n/v/d.. Placed on cardiac cath lab radiology technologist and NSR noted. Lungs clear bilat. Respirations even and non-labored. Abdomen soft, non-tender with positive bowel sounds. Denies any urinary symptoms. Positive pedal pulses with no edema.
[2024-10-20 10:00] VITALS: BP 119/72; PULSE 62; RESP 21; O2SAT 98
[2024-10-20 11:46] VITALS: BP 112/75; PULSE 64; RESP 15; O2SAT 98
[2024-10-20 12:03] LABS: D Dimer High Sensitivity 236 NG/ML
[2024-10-20 12:27] LABS: Resp Syncy Virus RNA Qual PCR NEGATIVE (Negative); SARS COV2 PCR INHOUSE NEGATIVE (Negative)
[2024-10-20 12:32] VITALS: BP 108/66; PULSE 76; RESP 18; TEMP 36.6; O2SAT 98
== END 2024-10-20 12:34 | disposition home or self-care (01) ==
PROVIDERS: Physician Assistant Medical; Emergency Provider Emergency Medicine; PCP Physician Assistant
DX: R10.11 Right upper quadrant pain (principal); R50.9 Fever, unspecified; R07.81 Pleurodynia; Z03.818 Encounter for observation for suspected exposure to other biological agents ruled out; Z79.899 Other long term (current) drug therapy
CPT/HCPCS: 36415; 71046; 76705; 80053; 81003; 82248; 83690; 85025; 85379; 87637; 99284; 99285

== ENCOUNTER → 2024-10-20 09:14 | Outpatient (BNV) | payer OTHER, SELFPAY | PROVIDERS: Emergency Provider Emergency Medicine; PCP Physician Assistant; Visit Provider Radiology Diagnostic Radiology | DX: R10.11 Right upper quadrant pain (principal); R91.1 Solitary pulmonary nodule | CPT/HCPCS: 71046; 76705 ==

== ENCOUNTER 2024-10-21 15:50 | Outpatient (AMB) | payer OTHER, SELFPAY ==
--- NOTE | 2024-10-21 15:53 | MHC.OFFVIS ---
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 States she is having elbow pain on and off for the last 6-7 years. She explains she feels radiating pain from her shoulder down her arm, pain is mainly on her medial aspect of arm. States pain started randomly thought out the day, no injury she can recall. States her pain is better when she has on a hand brace. 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 States she is having elbow pain on and off for the last 6-7 years. She explains she feels radiating pain from her shoulder down her arm, pain is mainly on her medial aspect of arm, but is occasionally on the lateral aspect as well.. States pain started randomly thought out the day, no injury she can recall. The patient reports that while the pain does radiate to the shoulder in the hand/wrist, her pain is definitely worst at the ?bones around my elbow?. No other acute complaints or concerns at this time. 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 [employer] Current occupational exposures/hazards: No Cognitive needs: No Hearing needs: No Vision needs: Yes (glasses) Review of Systems Const All systems reviewed & are unremarkable except as noted in HPI and below Physical Exam Extrem Other: Patient's left elbow normal to inspection No erythema, ecchymosis, edema noted No lacerations, abrasions, open areas No evidence of infection Patient reports significant tenderness to palpation about the medial and lateral epicondyles of the left elbow Positive Cozen's and reverse Cozen's test in the left Patient is able to flex and extend the left elbow fully, reports some discomfort in both the medial and lateral epicondyles when doing so Distal sensation intact Capillary refill brisk Assessment & Plan Assessment & Plan (1) Left lateral epicondylitis: Code(s): M77.12 - Lateral epicondylitis, left elbow Category: Medical (2) Medial epicondylitis, left elbow: Code(s): M77.02 - Medial epicondylitis, left elbow Category: Medical Plan 1. Left medial epicondylitis 2. Left lateral epicondylitis Patient is educated about these conditions Patient is educated about the typical recovery course At this time, patient is referred to occupational therapy for range of motion and strengthening of the left elbow for treatment of medial and lateral epicondylitis Patient understands this is amenable to this plan Should avoid any heavy lifting to avoid exacerbation of symptoms until OT has seen her and she begins to experience symptomatic improvement Patient may follow-up with us if OT is not helpful for discussion of further treatment options if indicated Follow-up as needed Orders: Orders OT Evaluation and Treatment 10/21/24 M77.02 - Medial epicondylitis, left elbow, M77.12 - Lateral epicondylitis, left elbow Coding Level of Care Code New Pt Level 3 (95557) Diagnoses Left lateral epicondylitis M77.12 Medial epicondylitis, left elbow M77.02
--- OUTSIDE RECORDS SUMMARY | 2024-10-21 15:54 | XMS_ITS | Clinical Summary ---
Author Organization [facility] Address [address] [place] [address] Care Team Providers Care Energy Control Officer Name Role Phone Rosa Hanson NP Primary [...] complication, without long-term current use of insulin ([facility]) Dx. E11.65 - Blood sugar check daily 100 Each 11 3 Active blood sugar diagnostic (FREESTYLE TEST) stripsIndicatio ns:Type 2 diabetes mellitus without complication, without long-term current use of insulin ([facility]) Dx. E11.65 - Blood sugar check daily . FREESTYLE LITE Test strips 100 Each 11 3 Active lancetsIndicati ons:Type 2 diabetes mellitus without complication, without long-term current use of insulin ([facility]) Dx. E11.65 - Blood sugar check [...] complication, without long-term current use of insulin ([facility]) Take 1 Tablet by mouth once daily [...] complication, without long-term current use of insulin ([facility]) Take 1 Tablet by mouth 2 (two) times daily before a meal 180 Tablet 1 4 Active metFORMIN (GLUCOPHAGE) 1,000 mg tabletIndicatio ns:Prescription refill,Type 2 diabetes mellitus without complication, without long-term current use of insulin ([facility]) Take 1 Tablet by mouth 2 (two) [...] As per eye examination done 06/15/15 @ [facility].Dr. Carmela Cheung Pinguecula of both eyes 07/04/2015 Overview (07/04/2015): As per eye examination done 06/15/15 @ [facility].Dr. Carmela Cheung Presbyopia 07/04/2015 Overview (07/04/2015): As per eye examination done 06/15/15 @ [facility].Dr. Carmela Cheung Uncontrolled type 2 diabetes mellitus with hyperglycemia ([facility]) 12/24/2014 Overview (12/24/2014): Lab Results Component Value Date HGBA1C 6.8* 12/24/2014 Primary hypertension 02/05/2013 Overview (07/15/2021): [facility] 06/11/16- No pulmonary embolus. Diet controlled currently Hypothyroidism 02/05/2013 Vitamin D deficiency disease 02/05/2013 Immunizations Immunization Administration Dates Next Due Flu, Adjuvant, 65y+ (Fluad) 01/17/2020 Flu, Preservative Free 03/17/2021,2019,04/03/2019,04/26 Hep B, Adult/Adol (DRMLRVN-B-SEFME/RECOMBIVAX-ADULT) 02/09/2012,09/08/2011,08/09/2011 INFLUENZA, SEASONAL, INJECTABLE 02/22/2016,01/30,04/11/2012 INFLUENZA, SEASONAL, INJECTA BLE, PRESERVATIVE FREE 02/05/2013 MMR (MMR II/Priorix) 07/16/2011,03/01/2011 Moderna COVID-19 Vaccine, re d cap blue label, 12+ Primary Series 09/02/2020,08/01/2020 PNEUMOCOCCAL CONJUGATE PCV 2 0 (Prevnar 20) 03/22/2023 PNEUMOCOCCAL POLYSACCHARIDE PPV23 (Pneumovax 23) 05/31/2012 PPD 02/13/2013 TDAP 07/21/2021,07/06/2011,03/01/2011 ZOSTER VACCINE, [...] 61 09/26/2023 8:51 AM EDT Temperature 36.8 C (98.2 F) 09/26/2023 8:51 AM EDT Respiratory Rate 18 09/26/2023 8:51 AM EDT [...] Colorectal Cancer Screening 10/05/2023 FIT/gFOBT 10/05/2023 10/04/2022 Hemoglobin A1c 12/27/2023 09/26/2023, 12/09/2022, 09/28/2022, Additional history exists Diabetes Foot Exam 03/22/2024 03/22/2023, 0 12/15/2022, 11/18/2022, Additional history exists Alcohol and Drug Screen 2024 06/22/19 24, 09/28/2022, 07/15/2021, Additional history exists Depression Annual Screen 2024 024, 06/22/2023, 11/02/2017 Pap Smear 06/17/2024 06/17/2021, 12/24/2014 Annual Wellness (Adult): Indicated (All Coverage) 09/25/2024 09/26/2023, 12/15/2022, 12/16/2020, Additional history exists Anxiety Screening 09/25/2024 09/26/2023 Lipid Screening 09/25/2024 09/26/2023, 05/18, 12/23/2020, Additional history exists Serum Creatinine 09/25/2024 09/26/2023, , 06/02/2022, Additional history exists TSH Monitoring 09/25/2024 09/26/2023, 09/2022, 09/28/2022, Additional history exists Urine Albumin Creatinine Rat io Screening 09/25/2024 09/26/2023, 06/02/2022, 12/23/2020, Additional history exists Tobacco Screening 11/20/2024 11/21/2023, , 09/26/2023, Additional history exists Imm-Influenza (#1) 2024 01/17/2024, 1 05/16/2021, 03/17/2021, Additional history exists Cervical Cancer Screening 06/17/2026 Pap + HPV 06/17/2026 06/17/2021 Imm-DTaP/Tdap/Td (4 - Td or Tdap) 07/22/2031 07/21/2021, 07/06/2011, 03/01/2011 Imm-Hepatitis B Completed 02/09/2012, 08/16, 08/09/2011 HIV Screening Completed 12/23/2020 Hepatitis C Screening Completed 12/23/2020, 015 Imm-Pneumococcal 50+ Completed 03/22/2023, 05/31/19 13 Imm-Zoster, Recombinant Completed 03/22/2023, 12/15 [id number] Completed 01/17/2024, 01/15, 04/06/2021, Additional history exists Cervical Ablation/Cold-Knife Conization Discontinued [...] type 2 diabetes mellitus with hyperglycemia (HCC-CMS) MICROALBUMIN/CREATININE RATIO, URINE, RANDOM Routine 09/26/2023 9:38 AM EDT Uncontrolled type 2 diabetes mellitus with hyperglycemia (HCC-CMS) HEMOGLOBIN GLYCOSYLATED A1C Routine 09/26/2023 9:38 AM EDT Uncontrolled type 2 diabetes mellitus with hyperglycemia ([facility]) FECAL GLOBIN BY IMMUNOCHEMISTRY (FIT) Routine [...] EDT) TSH 1.36 0.40 - 4.50 mIU/L [facility] Comment: Reference Range > or = 20 Years 0.40-4.50 Ranges First trimester 0.26-2.66 Second trimester 0.55-2.73 Third trimester 0.43-2.91 Blood Blood / Unknown 09/26/2023 9 :38 AM EDT 09/26/2023 9:38 AM EDT Rosa Hanson NP LAB - BLOOD DRAW Edited Resu lt - Final [employer] [address] [place] [id number], [facility] [address] [place] [phone] * MICROALBUMIN/CREATININE RATIO, URINE, RANDOM (09/26/2023 9:38 AM EDT) CREATININE, RANDOM URINE 79 20 - 275 mg/dL [facility] MICROALBUMIN 0.2 mg/dL [employer] Comment: Reference Range Not established MICROALBUMIN/CREA TININE RATIO, RANDOM URINE 3 <30 mg/g creat [facility] Comment: The ADA defines abnormalities in albumin excretion as follows: Albuminuria Category Result (mg/g creatinine) Normal to Mildly increased <30 Moderately increased 30-299 Severely increased > OR = 300 The ADA recommends that at least two of three specimens collected within a 3-6 month period be abnormal before considering a patient to be within a diagnostic category. Urine Urine specimen / Unknown 09/26/2023 9:38 AM EDT 09/26/2023 9:38 AM EDT us Rosa Hanson NP LAB URINE AMBULATORY Final R esult Performing Organization Address [facility] Co de Phone Number [facility] [address] [address], [employer] [address] [address] * (ABNORMAL) HEMOGLOBIN GLYCOSYLATED A1C (09/26/2023 9:38 AM EDT) HEMOGLOBIN A1C 9.7(H) <5.7 % of total Hgb [facility] Comment: For someone without known diabetes, a [...] A1c for diagnosis of diabetes for children. Blood Blood / Unknown 09/26/2023 9 :38 AM EDT 09/26/2023 9:38 AM EDT us Rosa Hanson NP LAB - BLOOD DRAW Edited Resu lt - Final Performing Organization Address [facility]/ZIP Co de Phone Number [facility] [address] [address], [employer] [address] [address] * (ABNORMAL) LIPID PANEL (09/26/2023 9:38 AM EDT) CHOLESTEROL, TOTAL 145 <200 mg/dL [facility] HDL CHOLESTEROL 49(L) > OR = 50 mg/dL [facility] TRIGLYCERIDES 163(H) <150 mg/dL [facility] LDL-CHOLESTEROL 72 99 mg/dL (calc) [facility] Comment: Reference range: <100 Desirable range <100 mg/dL for primary prevention; <70 mg/dL for patients with CHD or diabetic patients with > or = 2 CHD risk factors. LDL-C is now calculated using the Renato calculation, which is a validated novel method providing better accuracy than the Friedewald equation in the estimation of LDL-C. Evan SS et al. VIVIAN. 2013;310(62): 8562-9869 (http://education.[employer].com/faq/MFZ998) CHOL/HDLC RATIO 3.0 <5.0 (calc) [facility] NON-HDL CHOLESTEROL 96 <130 mg/dL (calc) [facility] Comment: For patients with diabetes plus 1 major ASCVD risk factor, treating to a non-HDL-C goal of <100 mg/dL (LDL-C of <70 mg/dL) is considered a therapeutic option. Blood Blood / Unknown 09/26/2023 9 :38 AM EDT 09/26/2023 9:38 AM EDT us Rosa Hanson NP LAB - BLOOD DRAW Final Resul t [employer] [address] [place] [id number], [facility] [address] [place] [phone] * (ABNORMAL) COMPREHENSIVE METABOLIC PANEL (09/26/2023 9:38 AM EDT) GLUCOSE 135(H) 65 - 99 mg/dL [facility] Comment: Fasting reference interval For someone without known diabetes, a glucose value >125 mg/dL indicates that they may have diabetes and this should be confirmed with a follow-up test. UREA NITROGEN (BUN) 10 7 - 25 mg/dL [facility] CREATININE (blood) 0.67 0.50 - 1.03 mg/dL [facility] EGFR 106 > OR = 60 mL/min/1. 73m2 [facility] BUN/CREATININE RATIO SEE NOTE: [facility] Comment: Not Reported: BUN and Creatinine are within reference range. SODIUM 141 135 - 146 mmol/L [facility] POTASSIUM 4.7 3.5 - 5.3 mmol/L [facility] CHLORIDE 106 98 - 110 mmol/L [facility] CARBON DIOXIDE 26 20 - 32 mmol/L [facility] CALCIUM 9.6 8.6 - 10.4 mg/dL [facility] PROTEIN, TOTAL 7.2 6.1 - 8.1 g/dL [facility] ALBUMIN 4.1 3.6 - 5.1 g/dL [facility] GLOBULIN 3.1 1.9 - 3.7 g/dL (calc) [facility] ALBUMIN/GLOBULI N RATIO 1.3 1.0 - 2.5 (calc) [facility] BILIRUBIN, TOTAL 0.6 0.2 - 1.2 mg/dL [facility] ALKALINE PHOSPHATASE 68 37 - 153 U/L [facility] AST 30 10 - 35 U/L [facility] ALT 40(H) 6 - 29 U/L [facility] Blood Blood / Unknown 09/26/2023 9 :38 AM EDT 09/26/2023 9:38 AM EDT Rosa Hanson WILDERNESS GUIDE LAB - BLOOD DRAW Edited Resu lt - Final Performing Organization Address City/[facility] Co de Phone Number [facility] [address] [address], [facility] [address] [address] * FIT DIAGNOSITC ONLY (10/04/2022 8:00 PM EDT) FECAL GLOBIN BY IMMUNOCHEMISTRY See Note [facility] Comment: FECAL GLOBIN BY IMMUNOCHEMISTRY Micro Number: [id number] Test Status: Final Specimen Source: Insure (tm) fobt test card Specimen Quality: Adequate Fecal Globin: Not Detected Stool Stool specimen / Unknown 10/04/2022 8:00 PM EDT 10/06/2022 3:24 AM EDT Blanca Rankin [employer] LAB BODY FLUIDS AND STOOLS A MBULATORY Final Result Performing Organization Address City/[facility]/ZIP Co de Phone Number [employer] [facility] [address] [address], [facility] [address] [address] * THIN PREP IMAGE PAP + HPV RNA E6/E7 W/RFLX HPV 16, 18/45 (06/17/2021 10:13 AM EST) CLINICAL INFORMATION See Note [facility] Comment:Routine exam LMP See Note [facility] Comment:[id number] PREV. PAP See Note [facility] Comment:NONE GIVEN PREV. BX See Note [facility] Comment:NONE GIVEN SOURCE See Note [facility] Comment:Cervix STATEMENT OF ADEQUACY See Note [facility] Comment: Satisfactory for evaluation. Endocervical/transformation zone component present. INTERPRETATION/RESU LT See Note [facility] Comment:Negative for intraep ithelial lesion or malignancy. COMMENT See Note [facility] Comment: This Pap test has been evaluated with computer assisted technology. METER TECHNICIAN See Note [facility] [employer] [facility] Comment: KEBEDE, CT(ASCP) CT screening location: [address] [address] COMMENT [facility] HPV MRNA E6/E7 Not Detected Not Detected [facility] Comment: Methodology: Technology Engineer-Mediated Amplification This assay detects E6/E7 viral messenger RNA (mRNA) from 14 high-risk HPV types (16,18,31,33,35,39,45,51,52,56,58,59,66,68). The analytical performance characteristics of this assay have been determined by [employer]. The modifications have not been cleared or approved by the FDA. This assay has been validated pursuant to the CLIA regulations and is used for clinical purposes. For additional information, please refer to http://education.[employer].Lemon[employer]rate/faq/KOQ579u3 (This link if provided for information/ educational purposes only.) Cervix Cervix uteri structure / Unknown 06/17/2021 10:13 AM EST 06/18/2021 3:22 AM EST Narrative [facility] - 06/21/2021 9:42 AM EST EXPLANATORY NOTE: [...] along with historic and current clinical information. Blanca Rodríguezadia [facility]- LAB - PATHOLOGY AND CYTOLOGY AMBULATORY Final Result Performing Organization Address [facility]/ZIP Co de Phone Number [facility] [address] [address], [facility] [address] [address] * HEPATITIS C AB W/RFLX HCV RNA, QT, RT PCR (12/23/2020 10:01 AM EDT) HEPATITIS C ANTIBODY NON-REACT MARKOS NON-REACT MARKOS [facility] SIGNAL TO CUT-OFF 0.03 <1.00 [facility] Comment: HCV antibody was non-reactive. There is no laboratory evidence of HCV infection. In most cases, no further action is required. However, if recent HCV exposure is suspected, a test for HCV RNA (test code 53429) is suggested. For additional information please refer to http://education.Naymit/faq/PKL82r5 (This link is being provided for informational/ educational purposes only.) Blood Blood / Unknown 12/23/2020 1 0:01 AM EDT 12/23/2020 10:02 AM EDT Narrative [facility] - 12/25/2020 8:45 PM EDT FASTING:YES Blanca Rodríguezadia [facility]-C LAB - BLOOD DRAW Edited Resu lt - Final Performing Organization Address City/[facility]/ZIP Co de Phone Number [facility] [address] [address], [facility] [address] [address] * HIV 1/2 AG & AB W/RFLX (4TH GEN) (12/23/2020 10:01 AM EDT) HIV AG/AB, 4TH GEN NON-REAC TIVE NON-REAC TIVE [facility] Comment: HIV-1 antigen and HIV-1/HIV-2 antibodies were not detected. There is no laboratory evidence of HIV infection. PLEASE NOTE: This information has been disclosed to you from records whose confidentiality may be protected by state law. If your state requires such protection, then the state law prohibits you from making any further disclosure of the information without the specific written consent of the person to whom it pertains, or as otherwise permitted by law. A general authorization for the release of medical or other information is NOT sufficient for this purpose. For additional information please refer to http://education.Naymit/faq/KZR766 (This link is being provided for informational/ educational purposes only.) The performance of this assay has not been clinically validated in patients less than 2 years old. Blood Blood / Unknown 12/23/2020 1 0:01 AM EDT 12/23/2020 10:02 AM EDT Narrative [employer] [facility] - 12/25/2020 8:45 PM EDT FASTING:YES Blanca [facility] LAB - BLOOD DRAW Edited Resu lt - Final [facility] [address] [address], [facility] [address] [address] * MAMMOGRAM BI-RADS, ABSTRACTED (05/14/2019 1:59 PM EST) BI-RADS ASSESSMENT 1 - Negative: means that there is no significant or noticeable abnormality to report. BI-RADS FOLLOW-UP 1 - Routine Screening Anatomical Region Laterality Modality Other Impressions 05/14/2019 1:59 PM EST As per Umm no evidence of malignancy. Provider Eliot ILMONG MAMMO Final Result from Last 3 Months or Most Recently Relevant to Health Maintenance Insurance [place] MEDICAID D[place]AL [facility] [employer]ANCE HEALTH SAF[employer] [place] [address] Care Teams Energy Control Officer Relationship Specialty Start Date End Date Rosa Hanson NP [address] [place] [address] PCP - General Internal Medicine 05/12/23
--- OUTSIDE RECORDS SUMMARY | 2024-10-21 15:54 | XMS_ITS | Clinical Summary ---
Author Organization [facility] Address [address] [place] [address] Phone Care Team Providers Care Die Developer Name Role Phone Rosa Hanson Primary Care Provider [phone] Medications polyethylene glycol (Golytely) 236-22.74-6.74 -5.86 gram [...] Team Description 08/13/2024 Telephone Gastroenterology - [address] [address] Ran High MD Special Procedure [...] BMP Blood Test 09/25/2024 09/26/2023 Influenza Vaccine (#1) 2024 , 01/17/2020, 04/03/2019, Additional history exists Cholesterol Screening [...] 5 Years) and At-Risk Patients (6 to 49 Years) Aged Out 03/22/2023, 05/31/2012 No longer [...] Procedure Name Priority Date/Time Associated Diagnosis Comments [facility] SCREENING DIGITAL Routine 05/14/2019 1:37 PM EST Encounter for screening mammogram for malignant neoplasm of breast from Last 3 Months or Most Recently Relevant to Health Maintenance Results * [facility] SCREENING DIGITAL (05/14/2019 1:37 PM EST) Anatomical Region Laterality Modality Mammography 05/14/2019 10:2 2 AM EST Narrative 05/14/2019 1:37 PM EST [facility] Diagnostic Imaging Department [address] [place] [address] Patient: MARTIN GARCIA Curtis /Age/Sex: 1970 - 49 - F Unit#: [id number] [facility]Ordering Site: [facility] Ordering Physician: MARIA EUGENIA MERCER [facility] Screening Digital - 05/14/195 History: Bilateral breast cancer screening. Technique: Bilateral digital mammography. Conventional CC and MLO projections with tomosynthesis MLO views and computer aided detection. Findings: Comparison: Radiology and Imaging incorporated [facility] 07/04/2018 and 05/12/2017. Breast tissue is mostly fatty replaced (category a density) bilaterally (as calculated by [employer]orna software). There are benign calcifications bilaterally. There is no suspicious group of microcalcification, no suspicious mass, architectural distortion or suspicious asymmetry. Impression: No evidence of malignancy. BIRADS category 2, benign findings, 3342F [id number], [id number] Note: Patient information entered into a reminder system with a target due date for the next mammogram; PQRI II [id number] Dictating Physician: BOY GARZA MD Electronically Signed by: BOY GARZA MD Dic Date/Time: 05/14/19 1336 Sign date/Time: 05/14/19 1337 Procedure Note Boy Garza - 04/06/2022 [facility] Diagnostic Imaging Department [address] [place] [id number] Patient: MARTIN GARCIA Curtis /Age/Sex: 1970 - 49 - F Unit#: [id number] Location/Status: [facility] CLI Mnemonic/Ordering Site: [facility] Ordering Physician: MARIA EUGENIA MERCER [facility] Screening Digital - 05/14/19 - 1045 History: Bilateral breast cancer screening. Technique: Bilateral digital mammography. Conventional CC and MLOprojections with tomosynthesis MLO views and computer aided detection. Findings: Comparison: Radiology and Imaging incorporated [facility] 07/04/2018 and 05/12/2017. Breast tissue is mostly fatty replaced (category a density) bilaterally(as calculated by [employer] software). There are benigncalcifications bilaterally. There is no suspicious group of microcalcification, nosuspicious mass, architectural distortion or suspicious asymmetry. Impression: No evidence of malignancy. BIRADS category 2, benign findings, 3342F [id number], [id number] Note: Patient information entered into a reminder system with a targetdue date for the next mammogram; PQRI II [id number] Dictating Physician: BOY GARZA MD Electronically Signed by: BOY GARZA MD Dic Date/Time: 05/14/19 1336 Sign date/Time: 05/14/19 1337 [place] [facility] BI PROCEDURES Final Result from Last 3 Months or Most Recently Relevant to Health Maintenance Insurance [employer] [address] [place], [place] [id number] [employer] Care Teams Die Developer Relationship Specialty Start Date End Date Rosa Hanson PCP - General 11/22/23
== END 2024-10-21 16:19 | disposition home or self-care (01) ==
LOC: HO.HOS 15:51
PROVIDERS: PCP Physician Assistant
DX: M77.12 Lateral epicondylitis, left elbow (principal); M77.02 Medial epicondylitis, left elbow
CPT/HCPCS: 99203

== ENCOUNTER → 2024-10-21 15:50 | Outpatient (BNVA) | payer OTHER, SELFPAY | PROVIDERS: PCP Physician Assistant | DX: M77.12 Lateral epicondylitis, left elbow (principal); M77.02 Medial epicondylitis, left elbow; R93.89 Abnormal findings on diagnostic imaging of other specified body structures; R91.1 Solitary pulmonary nodule; M89.9 Disorder of bone, unspecified | CPT/HCPCS: 99202 ==

== ENCOUNTER 2024-11-14 08:30 | Outpatient (AMB) | payer OTHER, SELFPAY ==
[2024-11-14 08:33] VITALS: BP 114/82; PULSE 86; RESP 14; TEMP 36.7; O2SAT 100; BMI 25.5
--- NOTE | 2024-11-14 08:33 | MHC.PC.OV ---
Vital Signs 11/14/24 08:33 Height 5 ft 5 in Weight 153 lb 6 oz BMI 25.5 BP 114/82 Blood Pressure Location Lt brachial Position Sitting Respiration 14 Pulse 86 Pulse Source Pulse Oximeter Temp 98.1 F Temp Source Oral Pulse Oximetry (%) 100 Oxygen Delivery Method Room Air Intake Visit Reasons: dm Intake Note: Diabetes follow up. PT has been feeling tired, feverish, and loss of appetite since started the Ozempic. Wants to discontinue and only take oral medication. 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 Accompanied by: Son Allergies semaglutide (From Ozempic) Adverse Reaction (Unknown, Verified 11/14/24 08:41) fatigue, loss of appetite, fever Medication List - Last Reconciled 11/14/24 by Roselyn Mosley PA-C atorvastatin 20 mg PO DAILY cholecalciferol (vitamin D3) (Vitamin D3) 50 mcg PO DAILY levothyroxine 50 mcg PO DAILY lisinopril 2.5 mg PO DAILY loratadine (Allergy Relief (loratadine)) 10 mg PO DAILY metformin 1,000 mg PO BID semaglutide (Ozempic) 0.5 mg (0.736 mL) subcut QWEEK triamcinolone acetonide 0.025% 1 appl topical BID 7 days Tobacco use date assessed: 11/14/24 Dental Screening Dental Screen Date: 06/27/24 HPI dm HPI Details Patient is a 54-year-old female who presents today for a follow up. Son here for translation She does complain today of this generalized weakness. She states that since she took Ozempic she has felt just weak and off. It has gradually gotten better over the month. She still just does not feel like she has the same energy. She is tired all the time. She sleeps through the night without difficulty. Sometimes when she is walking around she does feel a little dizzy but this has not happened since she stopped the Ozempic. It is hard to tell the kind of dizziness she experienced. She states it was not like a lightheaded or feeling faint but it also was in his spinning or feeling off balance. She is not sure if it felt like a foggy sensation but that is possibly the closest way she could describe it. She did not have any chest pain, shortness on breath or palpitations. She did not have any associated headache, vision changes, paresthesias or physical weakness. Her appetite is slowly returning. No difficulty swallowing or abdominal pain. No nausea, vomiting or diarrhea. She did feel nauseous initially with the Ozempic but that feeling has resolved. Endo: dm- Last A1c was 9.8. dx around 2009. Never had DM education and is adamant that she does not want this. Denies any hypoglycemic events-but refuses to check blood sugars. She is currently on metformin 1000 mg twice a day and was recently on Ozempic 0.5 mg weekly. The Ozempic caused nausea and GI discomfort. She discontinued it last month. States that since that short time a being on it she lost about 10 lb and has not gained back any weight. She says that this point she wants to just be managed with metformin. She does not want to take any medications. -did not tolerate glipizide as it caused dizziness, Trulicity caused injection site pain and skin irritation along with mild nausea. Ozempic caused significant food inversions and nausea. -not interested at this point in diabetic Education. hypothyroid- last TSH was WNL. Currently on levothyroxine 50 mcg. CV: Blood pressure today in the office is 114/82. She is currently on lisinopril 2.5 mg daily. Cholesterol is managed with atorvastatin 20 mg. LDL 62. GI: Lfts have been persistently elevated. Has an appointment with GI in 2 weeks. Liver ultrasound from the ER shows hepatic steatosis. We discussed the importance of monitoring and managing her diabetes. Mammo: many years ago - booked 09/05 but then she canceled and states that she has a still reschedule this and we will do this on her own. Colonoscopy: never had- scheduled this summer Pap/Manufacturing Specialist: referred at last visit Bone density: never had, lmp 2019. 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 1. Little interest or pleasure in doing things: not at all 2. Feeling down, depressed, or hopeless: not at all 3. Trouble falling or staying asleep, or sleeping too much: not at all 4. Feeling tired or having little energy: not at all 5. Poor appetite or overeating: not at all 6. Feeling bad about yourself - or that you are a failure or have let yourself or your family down: not at all 7. Trouble concentrating on things, such as reading the newspaper or watching television: not at all 8. Moving or speaking so slowly that other people could have noticed. Or the opposite - being so fidgety or restless that you have been moving around a lot more than usual: not at all 9. Thoughts that you would be better off or of hurting yourself in some way: not at all Total score: 0 Source: Developed by Drs. Jarrod Gonzales, Dannielle Lake, Sam Celestin and colleagues, with an educational kristofer from [employer]. Thrive Questionnaire Date Thrive assessed: 06/27/24 Do you have trouble paying your heating and electricity bill?: I choose not to answer this question Do you have trouble taking care of your child, family member or friend?: I choose not to answer this question Do you have trouble with day-to-day activities such as bathing, preparing meals, shopping, managing finances, etc.?: I choose not to answer this question Are you currently unemployed and looking for a job?: I choose not to answer this question Are you interested in more education?: I choose not to answer this question Please select the resources that you would like help with: None Currently or been in a relationship where the following occur: I choose not to answer THRIVE Score: 0 AUDIT C Alcohol Use Questionnaire (AUDIT-C) 1. How often do you have a drink containing alcohol?: Never Total Score: 0 BRAEDEN-7 AMB Questionnaire BRAEDEN-7 Date BRAEDEN - 7 assessed: 06/27/24 Feeling nervous, anxious, or on edge: 0 = Not at all Not being able to stop or control worryin = Not at all Worrying too much about different things: 0 = Not at all Trouble relaxin = Not at all Being so restless that it is hard to sit still: 0 = Not at all Becoming easily annoyed or irritable: 0 = Not at all Feeling afraid as if something awful might happen: 0 = Not at all Total BRAEDEN-7 score (0-4 normal; 5-9 mild; 10-14 moderate; 15-21 severe): 0 Source: Developed by Drs. Jrarod Gonzales, Dannielle Lake, Sam Celestin and colleagues, with an educational kristofer from [employer]. Physical exam (Primary Care) Vital Signs: Last Vital Signs Temp 98.1 F 11/14/24 08:33 Pulse 86 11/14/24 08:33 Resp 14 11/14/24 08:33 BP 114/82 11/14/24 08:33 Pulse Ox 100 11/14/24 08:33 Oxygen Delivery Method Room Air 11/14/24 08:33 BMI result Body Mass Index 25.5 Tobacco/Smoking Status: Tobacco use Status Tobacco use date assessed 11/14/24 11/14/24 08:42 Patient Tobacco Use Status Former Tobacco user 11/14/24 08:42 Tobacco use type Smokeless Tobacco (chewing 11/14/24 08:42 tobacco) e-Cigarette/Vaping Use Never Used 11/14/24 08:42 PHQ-9: PHQ-9 Score PHQ-9: Total score 0 11/14/24 08:40 Thrive Assessment: Date of Thrive Assessment Date Thrive assessed 06/27/24 11/14/24 08:34 Currently or been in a relationship where the following occur: I choose not to answer Const Orientation/consciousness: patient oriented x3 HENMT Ears: hearing grossly normal bilaterally Neck Thyroid: Thyroid normal Lymphatic: no lymphadenopathy noted Resp Auscultation: clear to auscultation bilaterally Cardio Rate: regular rate Rhythm: regular rhythm Heart sounds: S1 normal heart sound present and S2 normal heart sound present GI Inspection: Yes normal to inspection Palpation (GI): Soft to palpation and Other GI palpation findings present (nontender, no cva tenderness) Auscultation: normoactive bowel sounds Rectal Exam - Female: deferred Skin General skin exam: no rashes or lesions noted Neuro General: patient oriented x3, gait normal and no focal motor deficits Office Procedures EKG Details: EKG today in office is normal sinus rhythm at a rate of 61 beats per minute with nonspecific STT wave abnormalities. EKG interpreted myself and Dr. Rowan. [id number], Complete Results Reviewed Results Reviewed: Laboratory Tests 08/01/24 08/01/24 08/07/24 10:30 10:32 07:15 WBC 5.6 RBC 4.76 Hgb 12.5 Hct 39.5 MCV 83.0 MCH 26.3 L MCHC 31.6 RDW 12.3 Plt Count 222 Sodium 137 Potassium 4.2 Chloride 105 Carbon Dioxide 23 Anion Gap 13 BUN 9 Creatinine 0.72 Estim Creat Clear Calc Estimated GFR > 60 Random Glucose Hgb A1c (Clinic) 10.2 H Calcium Total Bilirubin Direct Bilirubin AST 28 ALT 51 H Alkaline Phosphatase 83 Total Protein Albumin Triglycerides 105 Cholesterol 130 LDL Cholesterol, Calc 62 HDL Cholesterol 47 Lipase TSH 1.64 10/20/24 08:24 WBC 5.7 RBC 4.31 Hgb 11.6 L Hct 35.1 L MCV MCH MCHC RDW Plt Count 186 Sodium 140 Potassium 4.3 Chloride 108 Carbon Dioxide 23 Anion Gap 13 BUN 8 L Creatinine 0.67 Estim Creat Clear Calc 98.3 Estimated GFR > 60 Random Glucose 127 H Hgb A1c (Clinic) Calcium 9.2 Total Bilirubin 0.4 Direct Bilirubin 0.1 AST 34 H ALT 61 H Alkaline Phosphatase 87 Total Protein 7.3 Albumin 4.2 Triglycerides Cholesterol LDL Cholesterol, Calc HDL Cholesterol Lipase 34 TSH Abdominal u/s Findings: The visualized pancreas is normal. The aorta and inferior vena cava are normal caliber. The liver demonstrates increased echogenicity compatible with steatosis. There is no intrahepatic bile duct dilatation. The common duct is 3 mm in diameter. Status post cholecystectomy. The main portal vein is antegrade. No ascites. IMPRESSION: 1. Status post cholecystectomy. 2. Increased hepatic echogenicity compatible with steatosis. Coding Level of Care Code Est Pt Level 4 (71862) Complex EM visit Add On G2211 Diagnoses Uncontrolled type 2 diabetes mellitus with hyperglycemia, without long-term current use of insulin E11.65 HTN (hypertension) I10 Generalized weakness R53.1 CPT Codes EKG - CPT: 50820-[id number], Complete ([id number]) Assessment & Plan Assessment & Plan (1) Uncontrolled type 2 diabetes mellitus with hyperglycemia, without long-term current use of insulin: Code(s): E11.65 - Type 2 diabetes mellitus with hyperglycemia Category: Medical Plan: We will continue with the metformin. A1c ordered today. Strongly encouraged patient to check her blood sugars at home into work on healthy lifestyle modifications. Short term follow up within 1 week. Sooner if needed (2) HTN (hypertension): Code(s): I10 - Essential (primary) hypertension Category: Medical Plan: WNL. Continue current regimen (3) Generalized weakness: Code(s): R53.1 - Weakness Category: Medical Plan: EKG listed above. Labs ordered today. We will follow up pending test results. Does report some symptom improvement over the last month. I will reassess her within 1 week. Sooner if anything worsens or changes. Patient understands and agrees with this plan Orders: Orders Complete Blood Count Auto Diff Today E11.65 - Type 2 diabetes mellitus with hyperglycemia, I10 - Essential (primary) hypertension, R53.1 - Weakness IRON PROFILE Today E11.65 - Type 2 diabetes mellitus with hyperglycemia, I10 - Essential (primary) hypertension, R53.1 - Weakness Magnesium Today E11.65 - Type 2 diabetes mellitus with hyperglycemia, I10 - Essential (primary) hypertension, R53.1 - Weakness Vitamin B12 and Folate Today E11.65 - Type 2 diabetes mellitus with hyperglycemia, I10 - Essential (primary) hypertension, R53.1 - Weakness AMB EKG-In Office Today R42 - Dizziness and giddiness, R53.1 - Weakness, Z13.6 - Encounter for screening for cardiovascular disorders Hemoglobin A1c Today E11.65 - Type 2 diabetes mellitus with hyperglycemia, I10 - Essential (primary) hypertension, R53.1 - Weakness, R73.01 - Impaired fasting glucose Comprehensive Met. Panel Today E11.65 - Type 2 diabetes mellitus with hyperglycemia, I10 - Essential (primary) hypertension, R53.1 - Weakness TSH reflex Free T4 Today E11.65 - Type 2 diabetes mellitus with hyperglycemia, I10 - Essential (primary) hypertension, R53.1 - Weakness Ferritin Today E11.65 - Type 2 diabetes mellitus with hyperglycemia, I10 - Essential (primary) hypertension, R53.1 - Weakness Medications: Discontinued semaglutide (Ozempic) Discontinued Reason: Doctor's Order 0.5 mg (0.736 mL) subcut QWEEK 3 mL 5RF
--- OUTSIDE RECORDS SUMMARY | 2024-11-14 08:39 | XMS_ITS | Clinical Summary ---
Author Organization [facility] Address [address] [place] [address] Phone Care Team Providers Care Licensed Clinical Psychologist Name Role Phone Rosa Hanson Primary Care Provider [phone] Medications polyethylene glycol (Golytely) 236-22.74-6.74 -5.86 gram [...] by the office 2 tablet 5 Active Social History Tobacco Use Types Packs/Day Years [...] Breast Cancer Screening 05/14/2021 05/14/2019 COVID-19 Vaccine ( season) 2023 09/02/2020, 08/01/2020 Colorectal Cancer Screening: Stool Based Tests (FOBT/FIT) 03/10/2024 10/04/2022 HIV Screening 03/10/2024 Social Influencers of Health Screening 03/10/2024 Depression Screening 2024 Diabetes: Annual Urine Albumin-Creatinine Ratio (uACR) 09/25/2024 [...] Pneumococcal Vaccine: 50+ Years Completed 03/22/2023, 05/31/2012 Zoster Vaccines Completed 03/22/2023, 12/15/2022 HIB Vaccines [...] Procedure Name Priority Date/Time Associated Diagnosis Comments PETER SCREENING DIGITAL Routine 05/14/2019 1:37 PM EST Encounter for screening mammogram for malignant neoplasm of breast from Last 3 Months or Most Recently Relevant to Health Maintenance Results * PETER SCREENING DIGITAL (05/14/2019 1:37 PM EST) Anatomical Region Laterality Modality Mammography 05/14/2019 10:2 2 AM EST Narrative 05/14/2019 1:37 PM EST [facility] Diagnostic Imaging Department [address] [place] [id number] Patient: MARTIN GARCIA Curtis /Age/Sex: 1970 - 49 - F Unit#: [id number] Location/Status: [facility] CLI [facility]em[facility] Order[facility] Physician: MARIA EUGENIA MERCER Peter Screening Digital - 05/14/19 - 1045 History: Bilateral breast cancer screening. Technique: Bilateral digital mammography. Conventional CC and MLO projections with tomosynthesis MLO views and computer aided detection. Findings: Comparison: Radiology and Imaging incorporated [facility] 07/04/2018 and 05/12/2017. Breast tissue is mostly fatty replaced (category a density) bilaterally (as calculated by Hub[employer] software). There are benign calcifications bilaterally. There is no suspicious group of microcalcification, no suspicious mass, architectural distortion or suspicious asymmetry. Impression: No evidence of malignancy. BIRADS category 2, benign findings, 3342F 99483, 26850 Note: Patient information entered into a reminder system with a target due date for the next mammogram; PQRI II [id number] Dictating Physician: BOY GARZA MD Electronically Signed by: BOY GARZA MD Dic Date/Time: 05/14/19 1336 Sign date/Time: 05/14/19 1337 Procedure Note Boy Garza - 04/06/2022 [facility] Diagnostic Imaging Department [address] [place] [id number] Patient: MARTIN GARCIA Curtis Sotelo/Age/Sex: 1970 - 49 - F Unit#: [id number] Location/Status: [facility] CLI Mnemonic/Ordering Site: [facility] Ordering Physician: MARIA EUGENIA MERCER COIN PURSE FRAMER Peter Screening Digital - 05/14/19 - 1045 History: Bilateral breast cancer screening. Technique: Bilateral digital mammography. Conventional CC and MLOprojections with tomosynthesis MLO views and computer aided detection. Findings: Comparison: Radiology and Imaging incorporated [facility] 07/04/2018 and 05/12/2017. Breast tissue is mostly fatty replaced (category a density) bilaterally(as calculated by [employer] software). There are benigncalcifications bilaterally. There is no suspicious group of microcalcification, nosuspicious mass, architectural distortion or suspicious asymmetry. Impression: No evidence of malignancy. BIRADS category 2, benign findings, 3342F 70676, 63728 Note: Patient information entered into a reminder system with a targetdue date for the next mammogram; PQRI II 7029F Dictating Physician: BOY GARZA MD Electronically Signed by: BOY GARZA MD Dic Date/Time: 05/14/19 1336 Sign date/Time: 05/14/19 1337 Nice Jennifer COIN PURSE FRAMER IMG BI PROCEDURES Final Result from Last 3 Months or Most Recently Relevant to Health Maintenance Insurance [address] [place], [place] [id number] [employer] [place] [id number] Care Teams Licensed Clinical Psychologist Relationship Specialty Start Date End Date Rosa Hanson PCP - General 11/22/23
== END 2024-11-14 09:43 | disposition home or self-care (01) ==
PROVIDERS: PCP Physician Assistant; Visit Provider Physician Assistant
DX: E11.65 Type 2 diabetes mellitus with hyperglycemia (principal); I10 Essential (primary) hypertension; R53.1 Weakness

== ENCOUNTER → 2024-11-14 08:30 | Outpatient (BNVA) | payer OTHER, SELFPAY | PROVIDERS: PCP Physician Assistant; Visit Provider Physician Assistant | DX: E11.65 Type 2 diabetes mellitus with hyperglycemia (principal); I10 Essential (primary) hypertension; R53.1 Weakness | CPT/HCPCS: 36415; 80053; 82043; 82570; 82607; 82728; 82746; 83036; 83540; 83735; 84443; 85025; 93005; 99212 ==

== ENCOUNTER 2024-11-14 09:49 | Outpatient (REF) | payer OTHER, SELFPAY ==
[2024-11-14 11:12] LABS: MANUAL DIFF FLAG NO
[2024-11-14 11:19] LABS: Hematocrit 39.5 % (37.0-47.0); Hemoglobin 11.8 g/dl (12.0-16.0); Imm Gran Abs Auto 0.03 X10*3/uL (0.00-0.03); Imm Gran Pct Auto 0.4 % (0.0-0.4); Lymphocytes Absolute Auto 1.2 X10*3/uL (1.2-4.9); Mean Corpuscular HGB Conc 29.9 g/dl (31.0-35.0); Mean Corpuscular Hemoglobin 25.2 pg (27.0-33.0); Mean Corpuscular Volume 84.4 fL (80.0-98.0); NRBC Abs Auto 0.000 X10*3/uL (0.0-0.012); NRBC Pct Auto 0.0 /100WBC (0.0-0.2); Platelet Count 357 X10*3/uL (160-400); Red Blood Count 4.68 X10*6/uL (4.20-5.50); White Blood Count 6.9 X10*3/uL (4.8-10.8)
[2024-11-14 11:30] LABS: Hemoglobin A1C 241.4777 umol/L; Total Hemoglobin (HGBA1C) 3203.0955 umol/L
[2024-11-14 12:13] LABS: Alanine Aminotransferase 41 U/L (0-31); Albumin Level 4.0 g/dL (3.5-5.0); Alkaline Phosphatase 96 U/L (39-117); Anion Gap 14 (12-20); Aspartate Amino Transferase 41 U/L (5-31); Blood Urea Nitrogen 7 mg/dL (9-16); Calcium 9.3 mg/dL (8.4-10.2); Carbon Dioxide 26 mmol/L (22-29); Chloride 103 mmol/L (96-108); Estimated Glomerular Filt Rate > 60; Iron 41 mcg/dL (30-160); Magnesium 1.9 mg/dL (1.6-2.6); Percent Iron Saturation 14 % (15-50); Potassium 4.5 mmol/L (3.3-5.1); Sodium 138 mmol/L (135-145); Total Iron Binding Capacity 289 mcg/dL (228-428); Total Protein 8.4 g/dL (6.5-8.0); Unsaturated Iron Binding 248 ug/dL
[2024-11-14 12:19] LABS: Microalbum/Creatinine Ratio Ur 11.0 ug/mg cr (<30)
[2024-11-14 12:31] LABS: Ferritin 139 ng/mL (10-250)
[2024-11-14 12:38] LABS: Folate 7.4 ng/mL (> or = 4.0); Vitamin B12 386 pg/mL (200-900)
== END 2024-11-14 09:50 | disposition home or self-care (01) ==
LOC: HO.WFDLDS 09:49
PROVIDERS: Visit Provider Physician Assistant
DX: Z13.89 Encounter for screening for other disorder (principal)
CPT/HCPCS: 36415; 80053; 82043; 82570; 82607; 82728; 82746; 83036; 83540; 83735; 84443; 85025

== ENCOUNTER 2024-12-05 09:28 | Outpatient (AMB) | payer OTHER, SELFPAY ==
--- NOTE | 2024-12-05 09:29 | AM.OFFWIN_ITS ---
Intake Vital Signs 12/05/24 09:33 Height 5 ft 5 in Weight 151 lb BMI 25.1 BP 106/66 Blood Pressure Location Rt brachial Position Sitting Respiration 16 Pulse 95 Pulse Source Pulse Oximeter Temp 98.1 F Temp Source Oral Pulse Oximetry (%) 97 Oxygen Delivery Method Room Air Intake Visit Reasons: EP itching all over body Intake Note: Itching all over body x 4 days Patient Tobacco Use Status: Former Tobacco user Accompanied by: Spouse Allergies semaglutide (From Ozempic) Adverse Reaction (Unknown, Verified 12/05/24 09:30) fatigue, loss of appetite, fever Do you need a note to return to daycare/school/sports/work: No HPI HPI Comments History of Present Illness Details Patient declined manager home improvement, interpreted for her. History of Present Illness - The patient is a 54-year-old female pr esenting with an itchy rash. - The rash and itching began three to fo ur days ago without any known trigger. - The patient denies any new medications , antibiotics, or dietary changes prior to the onset of symptoms. - The rash is present on the chest, arms , legs, and back. - No interventions have been attempted t o alleviate the symptoms prior to the visit. - No respiratory symptoms or fevers Physical Exam General: Cooperative, healthy appearing, comfortable, no acute distress and well developed Orientation: Patient oriented x3 Limitations: No limitations Head: Normal to inspection Ears: Hearing grossly normal bilaterally Nose: Normal External nose present Face and sinus: Normal facial exam Eyes: Appearance normal, both eyes and all related structures Neck: Normal visual inspection and Yes full ROM Respiratory: Normal respiratory effort and able to speak in complete sentences. Skin: patches of a maculopapular rash on BL UE, BL LE, chest, abdomen and back, no warmth or drainage noted. 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 [employer] Current occupational exposures/hazards: No Cognitive needs: No Hearing needs: No Vision needs: Yes (glasses) Review of Systems Const All systems reviewed & are unremarkable except as noted in HPI and below Physical Exam Vital Signs: Last Vital Signs Temp 98.1 F 12/05/24 09:33 Pulse 95 12/05/24 09:33 Resp 16 12/05/24 09:33 BP 106/66 12/05/24 09:33 Pulse Ox 97 12/05/24 09:33 Oxygen Delivery Method Room Air 12/05/24 09:33 BMI result Body Mass Index 25.1 Assessment & Plan Assessment & Plan (1) Dermatitis: Code(s): L30.9 - Dermatitis, unspecified Plan: Plan - Initiate a 12-day taper of prednisone to manage the rash and pruritus, starting with four pills daily for the first three days, then reducing by one pill every three days. Explained to the patient and her to follow the regimen carefully because if she abruptly stops it, she could have withdrawal symptoms that are dangerous. Recommended she write everything out on a piece of paper and cross off the days as she takes the pills. Reviewed risks and benefits of the prednisone. - Advise the patient to take Benadryl at night to alleviate itching, with caution regarding its sedative effects. - Recommend using OTC hydrocortisone cream for localized itching if necessary. - Instruct the patient to avoid potential triggers and to consider dietary or environmental changes that occurred three to four days prior to symptom onset. Unclear what the trigger was but its important to remove it from her diet. - Prescription sent electronically to [facility] in [place]; advise the patient to take prednisone in the morning to avoid insomnia. - Follow-up with primary care provider if symptoms persist. Patient was informed and verbally consented to the use of an ambient scribe for clinic note documentation during this visit. Medications: New prednisone see taper instructions; 40 mg Daily x3 days, 30 mg daily x3 days, 20 mg daily x3 days, 10 mg daily x3 days 10 mg PO DIRECTED 30 tabs 0RF Coding Level of Care Code Est Pt Level 3 (25182) Diagnoses Dermatitis L30.9
[2024-12-05 09:33] VITALS: BP 106/66; PULSE 95; RESP 16; TEMP 36.7; O2SAT 97; BMI 25.1
--- OUTSIDE RECORDS SUMMARY | 2024-12-05 10:38 | XMS_ITS | Clinical Summary ---
Author Organization [facility] Address [address] [place] [address] Care Team Providers Care Electrotype Molder Name Role Phone Rosa Hanson NP Primary [...] complication, without long-term current use of insulin ([facility]) Dx. E11.65 - Blood sugar check daily 100 Each 11 3 Active blood sugar diagnostic (FREESTYLE TEST) stripsIndicatio ns:Type 2 diabetes mellitus without complication, without long-term current use of insulin ([facility]) Dx. E11.65 - Blood sugar check daily . FREESTYLE LITE Test strips 100 Each 11 3 Active lancetsIndicati ons:Type 2 diabetes mellitus without complication, without long-term current use of insulin ([facility]) Dx. E11.65 - Blood sugar check daily [...] complication, without long-term current use of insulin ([facility]) Take 1 Tablet by mouth once daily [...] complication, without long-term current use of insulin ([facility]) Take 1 Tablet by mouth 2 (two) times daily before a meal 180 Tablet 1 4 Active metFORMIN (GLUCOPHAGE) 1,000 mg tabletIndicatio ns:Prescription refill,Type 2 diabetes mellitus without complication, without long-term current use of insulin ([facility]) Take 1 Tablet by mouth 2 (two) [...] As per eye examination done 06/15/15 @ [facility].Dr. Carmela Cheung Pinguecula of both eyes 07/04/2015 Overview (07/04/2015): As per eye examination done 06/15/15 @ [facility].Dr. Carmela Cheung Presbyopia 07/04/2015 Overview (07/04/2015): As per eye examination done 06/15/15 @ [facility].Dr. Carmela Cheung Uncontrolled type 2 diabetes mellitus with hyperglycemia ([facility]) 12/24/2014 Overview (12/24/2014): Lab Results Component Value Date HGBA1C 6.8* 12/24/2014 Primary hypertension 02/05/2013 Overview (07/15/2021): [facility] 06/11/16- No pulmonary embolus. Diet controlled currently Hypothyroidism 02/05/2013 Vitamin D deficiency disease 02/05/2013 Immunizations Immunization Administration Dates Next Due Flu, Adjuvant, 65y+ (Fluad) 01/17/2020 Flu, Preservative Free 03/17/2021,2019,04/03/2019,04/26 Hep B, Adult/Adol (TPFZOYV-B-ETRHE/RECOMBIVAX-ADULT) 02/09/2012,09/08/2011,08/09/2011 INFLUENZA, SEASONAL, INJECTABLE 02/22/2016,01/30,04/11/2012 INFLUENZA, SEASONAL, [...] 09/25/2024 09/26/2023, 09/2022, 09/28/2022, Additional history exists Tobacco Screening 09/25/2024 09/26/2023, , 12/15/2022 Urine Albumin Creatinine Rat io Screening 09/25/2024 09/26/2023, 06/02/2022, 12/23/2020, Additional history exists Imm-Influenza (#1) 2024 01/17/2024, 1 05/16/2021, 03/17/2021, Additional history exists Cervical Cancer Screening 06/17/2026 Pap + HPV 06/17/2026 06/17/2021 Imm-DTaP/Tdap/Td (4 - Td or Tdap) 07/22/2031 07/21/2021, 07/06/2011, 03/01/2011 Imm-Hepatitis B Completed 02/09/2012, 08/16, 08/09/2011 HIV Screening Completed 12/23/2020 Hepatitis C Screening Completed 12/23/2020, 015 Imm-Pneumococcal 50+ Completed 03/22/2023, 05/31/19 13 Imm-Zoster, Recombinant Completed 03/22/2023, 12/15 [id number] Completed 01/17/2024, 01/15, 04/06/2021, Additional history exists [...] Uncontrolled type 2 diabetes mellitus with hyperglycemia ([facility]) LIPID PANEL Routine 09/26/2023 9:38 AM EDT Uncontrolled type 2 diabetes mellitus with hyperglycemia ([facility]) MICROALBUMIN/CREATININE RATIO, URINE, RANDOM Routine 09/26/2023 9:38 AM EDT Uncontrolled type 2 diabetes mellitus with hyperglycemia ([facility]-CMS) HEMOGLOBIN GLYCOSYLATED A1C Routine 09/26/2023 9:38 AM EDT Uncontrolled type 2 diabetes mellitus with hyperglycemia ([facility]) FECAL GLOBIN BY IMMUNOCHEMISTRY (FIT) [...] EDT) TSH 1.36 0.40 - 4.50 mIU/L [employer] [facility] Comment: Reference Range > or = 20 Years 0.40-4.50 Ranges First trimester 0.26-2.66 Second trimester 0.55-2.73 Third trimester 0.43-2.91 Blood Blood / Unknown 09/26/2023 9 :38 AM EDT 09/26/2023 9:38 AM EDT Rosa Hanson NP LAB - BLOOD DRAW Edited Resu lt - Final [facility] [address] [place] [address], [employer] [address] [address] * MICROALBUMIN/CREATININE RATIO, URINE, RANDOM (09/26/2023 9:38 AM EDT) CREATININE, RANDOM URINE 79 20 - 275 mg/dL [facility] MICROALBUMIN 0.2 mg/dL [facility] Comment: Reference Range Not established MICROALBUMIN/CREA TININE RATIO, RANDOM URINE 3 <30 mg/g creat [facility] Comment: The ADA defines abnormalities in albumin [...] AMBULATORY Final R esult Performing Organization Address [facility] Co de Phone Number [facility] [address] [address], [facility] [address] [address] * (ABNORMAL) HEMOGLOBIN GLYCOSYLATED A1C (09/26/2023 9:38 AM EDT) HEMOGLOBIN A1C 9.7(H) <5.7 % of total Hgb [facility] Comment: For someone without known diabetes, a [...] Resu lt - Final Performing Organization Address City/[facility]/ZIP Co de Phone Number [facility] [address] [address], [place] [address] [address] * (ABNORMAL) LIPID PANEL (09/26/2023 9:38 AM EDT) CHOLESTEROL, TOTAL 145 <200 mg/dL [facility] HDL CHOLESTEROL 49(L) > OR = 50 mg/dL [facility] TRIGLYCERIDES 163(H) <150 mg/dL [facility] LDL-CHOLESTEROL 72 99 mg/dL (calc) [facility] Comment: Reference range: <100 Desirable range <100 mg/dL for primary prevention; <70 mg/dL for patients with CHD or diabetic patients with > or = 2 CHD risk factors. LDL-C is now calculated using the Renato calculation, which is a validated novel method providing better accuracy than the Friedewald equation in the estimation of LDL-C. Evan SS et al. VIVIAN. 2013;310(19): 4116-0261 (http://education.3LM/faq/ZZK309) CHOL/HDLC RATIO 3.0 <5.0 (calc) [facility] NON-HDL CHOLESTEROL 96 <130 mg/dL (calc) [facility] Comment: For patients with diabetes plus 1 major ASCVD risk factor, treating to a non-HDL-C goal of <100 mg/dL (LDL-C of <70 mg/dL) is considered a therapeutic option. Blood Blood / Unknown 09/26/2023 9 :38 AM EDT 09/26/2023 9:38 AM EDT Rosa Hanson NP LAB - BLOOD DRAW Final Resul t [facility] [address] [place] [address], [facility] [address] [place] [phone] * (ABNORMAL) COMPREHENSIVE METABOLIC PANEL (09/26/2023 9:38 AM EDT) GLUCOSE 135(H) 65 - 99 mg/dL [facility] Comment: Fasting reference interval For someone without known diabetes, a glucose value >125 mg/dL indicates that they may have diabetes and this should be confirmed with a follow-up test. UREA NITROGEN (BUN) 10 7 - 25 mg/dL [facility] CREATININE (blood) 0.67 0.50 - 1.03 mg/dL [facility] EGFR 106 > OR = 60 mL/min/1. 73m2 [facility] BUN/CREATININE RATIO SEE NOTE: [facility] Comment: Not Reported: BUN and Creatinine are within reference range. SODIUM 141 135 - 146 mmol/L [facility] POTASSIUM 4.7 3.5 - 5.3 mmol/L [facility] CHLORIDE 106 98 - 110 mmol/L [facility] CARBON DIOXIDE 26 20 - 32 mmol/L [facility] CALCIUM 9.6 8.6 - 10.4 mg/dL [facility] PROTEIN, TOTAL 7.2 6.1 - 8.1 g/dL [facility] ALBUMIN 4.1 3.6 - 5.1 g/dL [facility] GLOBULIN 3.1 1.9 - 3.7 g/dL (calc) [facility] ALBUMIN/GLOBULI N RATIO 1.3 1.0 - 2.5 (calc) [facility] BILIRUBIN, TOTAL 0.6 0.2 - 1.2 mg/dL [facility] ALKALINE PHOSPHATASE 68 37 - 153 U/L [facility] AST 30 10 - 35 U/L [facility] ALT 40(H) 6 - 29 U/L [facility] Blood Blood / Unknown 09/26/2023 9 :38 AM EDT 09/26/2023 9:38 AM EDT Rosa Hanson MAIL MESSENGER CONTRACTOR LAB - BLOOD DRAW Edited Resu lt - Final Performing Organization Address City/[facility] Co de Phone Number [facility] [address] [address], [facility] [address] [address] * FIT DIAGNOSITC ONLY (10/04/2022 8:00 PM EDT) FECAL GLOBIN BY IMMUNOCHEMISTRY See Note [facility] Comment: FECAL GLOBIN BY IMMUNOCHEMISTRY Micro Number: [id number] Test Status: Final Specimen Source: Insure (tm) fobt test card Specimen Quality: Adequate Fecal Globin: Not Detected Stool Stool specimen / Unknown 10/04/2022 8:00 PM EDT 10/06/2022 3:24 AM EDT Blanca Rankin COMPUTER PROGRAMMER-C LAB BODY FLUIDS AND STOOLS A MBULATORY Final Result Performing Organization Address City/[facility] Co de Phone Number [employer] [address] [address], [facility] [address] [address] * THIN PREP IMAGE PAP + HPV RNA E6/E7 W/RFLX HPV 16, 18/45 (06/17/2021 10:13 AM EST) CLINICAL INFORMATION See Note [facility] Comment:Routine exam LMP See Note [facility] Comment:[phone] PREV. PAP See Note [facility] Comment:NONE GIVEN PREV. BX See Note [facility] Comment:NONE GIVEN SOURCE See Note [facility] Comment:Cervix STATEMENT OF ADEQUACY See Note [facility] Comment: Satisfactory for evaluation. Endocervical/transformation zone component present. INTERPRETATION/RESU LT See Note [facility] Comment:Negative for intraep ithelial lesion or malignancy. COMMENT See Note [facility] Comment: This Pap test has been evaluated with computer assisted technology. LICSW See Note [facility] [email or web address] [facility] Comment: KEBEDE, CT(ASCP) CT screening location: [place] [address] COMMENT [facility] HPV MRNA E6/E7 Not Detected Not Detected [facility] Comment: Methodology: Organization Development Consultant-Mediated Amplification This assay detects E6/E7 viral messenger RNA (mRNA) from 14 high-risk HPV types (16,18,31,33,35,39,45,51,52,56,58,59,66,68). The analytical performance characteristics of this assay have been determined by [facility]. The modifications have not been cleared or approved by the FDA. This assay has been validated pursuant to the CLIA regulations and is used for clinical purposes. For additional information, please refer to http://education.InfoGin.Regalamos/faq/PKE566q2 (This link if provided for information/ educational purposes only.) Cervix Cervix uteri structure / Unknown 06/17/2021 10:13 AM EST 06/18/2021 3:22 AM EST Narrative [facility] - 06/21/2021 9:42 AM EST EXPLANATORY NOTE: [...] with historic and current clinical information. Blanca Massiel BARKSDALEP-C LAB - PATHOLOGY AND CYTOLOGY AMBULATORY Final Result Performing Organization Address [facility] Co de Phone Number [facility] [address] [address], [facility] [address],[place] [address] * HEPATITIS C AB W/RFLX HCV RNA, QT, RT PCR (12/23/2020 10:01 AM EDT) HEPATITIS C ANTIBODY NON-REACT MARKOS NON-REACT MARKOS [facility] SIGNAL TO CUT-OFF 0.03 <1.00 [facility] Comment: HCV antibody was non-reactive. There is no laboratory evidence of HCV infection. In most cases, no further action is required. However, if recent HCV exposure is suspected, a test for HCV RNA (test code 22540) is suggested. For additional information please refer to http://education.Uni-Power Group/faq/ECB02v8 (This link is being provided for informational/ educational purposes only.) Blood Blood / Unknown 12/23/2020 1 0:01 AM EDT 12/23/2020 10:02 AM EDT Narrative [facility] - 12/25/2020 8:45 PM EDT FASTING:YES Blanca Massiel BARKSDALEP-C LAB - BLOOD DRAW Edited Resu lt - Final Performing Organization Address [facility]/ZIP Co de Phone Number [facility] [address] [address], [facility] [address] [address] * HIV 1/2 AG & AB W/RFLX (4TH GEN) (12/23/2020 10:01 AM EDT) HIV AG/AB, 4TH GEN NON-REAC TIVE NON-REAC TIVE [facility] Comment: HIV-1 antigen and HIV-1/HIV-2 antibodies [...] purpose. For additional information please refer to http://education.Uni-Power Group/faq/GRY617 (This link is being provided for informational/ educational purposes only.) The performance of this assay has not been clinically validated in patients less than 2 years old. Blood Blood / Unknown 12/23/2020 1 0:01 AM EDT 12/23/2020 10:02 AM EDT Narrative [facility] - 12/25/2020 8:45 PM EDT FASTING:YES Blanca BARKSDALEP-C LAB - BLOOD DRAW Edited Resu lt - Final [facility] [address] [address], [facility] [address] [address] * MAMMOGRAM BI-RADS, ABSTRACTED (05/14/2019 1:59 PM EST) BI-RADS ASSESSMENT 1 - Negative: means that there is no significant or noticeable abnormality to report. BI-RADS FOLLOW-UP 1 - Routine Screening Anatomical Region Laterality Modality Other Impressions 05/14/2019 1:59 PM EST As per Umm no evidence of malignancy. Provider Eliot IMG MAMMO Final Result from Last 3 Months or Most Recently Relevant to Health Maintenance Insurance [place]ICA[place] D[place] [facility] HEALTH INSURANCE HEALTH SAFETY [place] [address] Care Teams Electrotype Molder Relationship Specialty Start Date End Date Rosa Hanson NP [address] [place] [address] PCP - General Internal Medicine 05/12/23
--- OUTSIDE RECORDS SUMMARY | 2024-12-05 10:38 | XMS_ITS | Clinical Summary ---
Author Organization [facility] Address [address] [place] [address] Phone Care Team Providers Care Photogravure Press Operator Name Role Phone Rosa Hanson Primary Care Provider [phone] Medications polyethylene glycol (Golytely) 236-22.74-6.74 -5.86 gram [...] AM EST Narrative 05/14/2019 1:37 PM EST [facility] Diagnostic Imaging Department [address] [place] [address] Patient: MARTIN GARCIA Curtis /Age/Sex: 1970 - 49 - F Unit#: [id number] Location/Status: [facility] CLI Mnemonic[facility] Order[facility] Physician: MARIA EUGENIA MERCER Peter Screening Digital - 05/14/19 - 1045 History: Bilateral breast cancer screening. Technique: Bilateral digital mammography. Conventional CC and MLO projections with tomosynthesis MLO views and computer aided detection. Findings: Comparison: Radiology and Imaging incorporated [facility] 07/04/2018 and 05/12/2017. Breast tissue is mostly fatty replaced (category a density) bilaterally (as calculated by SeeMediapara software). There are benign calcifications bilaterally. There is no suspicious group of microcalcification, no suspicious mass, architectural distortion or suspicious asymmetry. Impression: No evidence of malignancy. BIRADS category 2, benign findings, 3342F [address], [id number] Note: Patient information entered into a reminder system with a target due date for the next mammogram; PQRI II [id number] Dictating Physician: BOY GARZA MD Electronically Signed by: BOY GARZA MD Dic Date/Time: 05/14/19 1336 Sign date/Time: 05/14/19 1337 Procedure Note Boy Garza - 04/06/2022 [facility] Diagnostic Imaging Department [address] [place] [address] Patient: MARTIN GARCIA Curtis Sotelo/Age/Sex: 1970 - 49 - F Unit#: [id number] Location/Status: [facility] CLI Mnemonic/Ordering Site: [facility] Ordering Physician: MARIA EUGENIA MERCER GEAR MACHINE OPERATOR GENERAL Peter Screening Digital - 05/14/19 - 1045 History: Bilateral breast cancer screening. Technique: Bilateral digital mammography. Conventional CC and MLOprojections with tomosynthesis MLO views and computer aided detection. Findings: Comparison: Radiology and Imaging incorporated [facility] 07/04/2018 and 05/12/2017. Breast tissue is mostly fatty replaced (category a density) bilaterally(as calculated by [employer] Volpara software). There are benigncalcifications bilaterally. There is no suspicious group of microcalcification, nosuspicious mass, architectural distortion or suspicious asymmetry. Impression: No evidence of malignancy. BIRADS category 2, benign findings, 3342F [address], [address] Note: Patient information entered into a reminder system with a targetdue date for the next mammogram; PQRI II 7081F Dictating Physician: BOY GARZA MD Electronically Signed by: BOY GARZA MD Dic Date/Time: 05/14/19 1336 Sign date/Time: 05/14/19 1337 Nice Jennifer GEAR MACHINE OPERATOR GENERAL IMG BI PROCEDURES Final Result from Last 3 Months or Most Recently Relevant to Health Maintenance Insurance [employer] [address] [employer] [address] [place], [place] [id number] [employer]CIAL [employer] [place] [id number] Care Teams Photogravure Press Operator Relationship Specialty Start Date End Date Rosa Hanson PCP - General 11/22/23
== END 2024-12-05 09:51 | disposition home or self-care (01) ==
PROVIDERS: PCP Physician Assistant; Visit Provider Physician Assistant
DX: L30.9 Dermatitis, unspecified (principal)

== ENCOUNTER → 2024-12-05 09:28 | Outpatient (BNVA) | payer OTHER, SELFPAY | PROVIDERS: PCP Physician Assistant; Visit Provider Physician Assistant | DX: L30.9 Dermatitis, unspecified (principal) | CPT/HCPCS: 99212 ==

== ENCOUNTER 2024-12-11 11:15 | Outpatient (AMB) | payer OTHER, SELFPAY ==
--- NOTE | 2024-12-11 11:32 | A.OFFPC_ITS ---
Vital Signs 12/11/24 11:37 Height 5 ft 5 in Weight 150 lb 4 oz BMI 25.0 BP 120/74 Blood Pressure Location Lt brachial Position Sitting Respiration 12 Pulse 90 Pulse Source Pulse Oximeter Pulse Oximetry (%) 97 Oxygen Delivery Method Room Air Intake Visit Reasons[place] [facility] [place]: Emergency room follow up Hotel General Manager Required: Yes Hotel General Manager Language: Czech Hotel General Manager Name: [id number] Allergies semaglutide (From Ozempic) Adverse Reaction (Unknown, Verified 12/11/24 11:35) fatigue, loss of appetite, fever Medication List - Last Reconciled 12/11/24 by Roselyn Mosley PA-C atorvastatin 20 mg PO DAILY cholecalciferol (vitamin D3) (Vitamin D3) 50 mcg PO DAILY levothyroxine 50 mcg PO DAILY lisinopril 2.5 mg PO DAILY loratadine (Allergy Relief (loratadine)) 10 mg PO DAILY metformin 1,000 mg PO BID prednisone 10 mg PO DIRECTED Tobacco use date assessed: 12/11/24 Dental Screening Dental Screen Date: 06/27/24 HPI [place]20 [place] [facility] [place] Details Patient is a 54-year-old female who presents today for a follow up. Phone: Jane [phone] Endo: dm- Last A1c was 9. dx around 2009. Never had DM education and is adamant that she does not want this. Denies any hypoglycemic events-but refuses to check blood sugars. She is currently on metformin 1000 mg twice a day and was recently on Ozempic 0.5 mg weekly. The Ozempic caused nausea and GI discomfort. She does not want to take any medications. Her daughter uses insulin and has no side effects so wants to try something like this if needed. -did not tolerate glipizide as it caused dizziness, Trulicity caused injection site pain and skin irritation along with mild nausea. Ozempic caused significant food inversions and nausea. -not interested at this point in diabeti c Education. hypothyroid- last TSH was WNL. Currently on levothyroxine 50 mcg. CV: Blood pressure today in the office is 120/74. She is currently on lisinopril 2.5 mg daily. Cholesterol is managed with atorvastatin 20 mg. LDL 62. GI: Lfts have been persistently elevated. Had an appointment scheduled with GI but had to switch it so she will now not be seen until February. Liver ultrasound from the ER shows hepatic steatosis. We discussed the importance of monitoring and managing her diabetes. Derm: has noted the skin on her forearms is rough, raised, and itchy. She has a patch of dry itchy skin note on her back as well. Mammo: many years ago - booked 09/05 but then she canceled and states that she has a still reschedule this and we will do this on her own. Colonoscopy: never had- scheduled this summer Pap/Voting Machine Repairer: referred at last visit Bone density: never had, lmp 2020. 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 [employer] Current occupational exposures/hazards: No Cognitive needs: No Hearing needs: No Vision needs: Yes (glasses) Questionnaire Thrive Questionnaire Date Thrive assessed: 06/27/24 I am a: Patient What is your living situation today?: I choose not to answer this question Within the past 12 months, did the food you bought not last and you didn't have the money to get more?: I choose not to answer this question Within the past 12 months, did you worry whether your food would run out before you got money to buy more?: I choose not to answer this question Do you have trouble paying for medicines?: No Do you have trouble getting transportation to medical appointments?: I choose not to answer this question Do you have trouble paying your heating and electricity bill?: I choose not to answer this question Do you have trouble taking care of your child, family member or friend?: I choose not to answer this question Do you have trouble with day-to-day activities such as bathing, preparing meals, shopping, managing finances, etc.?: I choose not to answer this question Are you currently unemployed and looking for a job?: I choose not to answer this question Are you interested in more education?: I choose not to answer this question Please select the resources that you would like help with: None Currently or been in a relationship where the following occur: I choose not to answer THRIVE Score: 0 BRAEDEN-7 AMB Questionnaire BRAEDEN-7 Date BRAEDEN - 7 assessed: 06/27/24 Source: Developed by Drs. Jarrod Gonzales, Dannielle Lake, Sam Celestin and colleagues, with an educational kristofer from [employer]. Physical exam (Primary Care) Vital Signs: Last Vital Signs Pulse 90 12/11/24 11:37 Resp 12 12/11/24 11:37 BP 120/74 12/11/24 11:37 Pulse Ox 97 12/11/24 11:37 Oxygen Delivery Method Room Air 12/11/24 11:37 BMI result Body Mass Index 25.0 Tobacco/Smoking Status: Tobacco use Status Tobacco use date assessed 12/11/24 12/11/24 11:36 Patient Tobacco Use Status Former Tobacco user 12/11/24 11:34 Tobacco use type Smokeless Tobacco (chewing 12/11/24 11:34 tobacco) e-Cigarette/Vaping Use Never Used 12/11/24 11:34 Thrive Assessment: Date of Thrive Assessment Date Thrive assessed 06/27/24 12/11/24 11:34 Currently or been in a relationship where the following occur: I choose not to answer Const Orientation/consciousness: patient oriented x3 HENMT Ears: hearing grossly normal bilaterally Neck Thyroid: Thyroid normal Lymphatic: no lymphadenopathy noted Resp Auscultation: clear to auscultation bilaterally Cardio Rate: regular rate Rhythm: regular rhythm Heart sounds: S1 normal heart sound present and S2 normal heart sound present GI Inspection: Yes normal to inspection Palpation (GI): Soft to palpation and Other GI palpation findings present (nontender, no cva tenderness) Auscultation: normoactive bowel sounds Rectal Exam - Female: deferred Skin Other: Skin on extensor surface of forearm noted to be slightly papular, flesh-colored and flaky. Similar-appearing rash noted on the flanks. Neuro General: patient oriented x3, gait normal and no focal motor deficits Coding Level of Care Code Est Pt Level 4 (93627) Complex EM visit Add On G2211 Diagnoses HTN (hypertension) I10 Dyslipidemia E78.5 Uncontrolled type 2 diabetes mellitus with hyperglycemia, without long-term current use of insulin E11.65 Dermatitis L30.9 Assessment & Plan Assessment & Plan (1) HTN (hypertension): Code(s): I10 - Essential (primary) hypertension Category: Medical Plan: WNL. Continue current regimen (2) Dyslipidemia: Code(s): E78.5 - Hyperlipidemia, unspecified Category: Medical Plan: Continue atorvastatin. We will monitor (3) Uncontrolled type 2 diabetes mellitus with hyperglycemia, without long-term current use of insulin: Code(s): E11.65 - Type 2 diabetes mellitus with hyperglycemia Category: Medical Plan: We will start Lantus 10 units nightly. After a very long discussion she did not want to start any other medications and just wants to go right to the insulin as her daughter is on this and tolerates this well. We reviewed how to inject. I did put in a referral to the nurse navigator. Continue with the metformin. CGM ordered. She is familiar with this as her daughter uses 1. Advised to bring in her CGM if she has any issues with this and we can review how to properly a place it. (4) Dermatitis: Code(s): L30.9 - Dermatitis, unspecified Category: Medical Plan: We will start on triamcinolone cream. She will let me know if no improvement or if anything worsens or changes. Short term follow up. Medications: New hydroxyzine HCl 10 mg PO TID PRN 30 tabs 0RF itching 10 days blood-glucose,freight receiver,cont (FreeStyle Ceasar 3 [place]) Use daily As directed to monitor blood glucose 1 ea 0RF E11.65 - Type 2 diabetes mellitus with hyperglycemia, Z79.4 - residential (current) use of insulin triamcinolone acetonide 0.5% 1 appl topical TID 30 grams 0RF 7 days insulin glargine (Lantus Solostar U-100 Insulin) 10 units (0.1 mL) subcut QPM 15 mL 3RF blood-glucose sensor (FreeStyle Ceasar 3 Plus Sensor device) Use daily As directed to monitor glucose 2 ea 5RF E08.29 - Diabetes mellitus due to underlying condition with other diabetic kidney complication, R80.9 - Proteinuria, unspecified, Z79.4 - residential (current) use of insulin pen needle, diabetic Use daily As directed 100 ea 3RF Discontinued prednisone see taper instructions; 40 mg Daily x3 days, 30 mg daily x3 days, 20 mg daily x3 days, 10 mg daily x3 days Discontinued Reason: Doctor's Order 10 mg PO DIRECTED 30 tabs 0RF
[2024-12-11 11:37] VITALS: BP 120/74; PULSE 90; RESP 12; O2SAT 97; BMI 25.0
--- OUTSIDE RECORDS SUMMARY | 2024-12-11 12:09 | XMS_ITS | Clinical Summary ---
Author Organization [facility] Address [address] [place] [address] Phone Care Team Providers Care Dynamite Reclaimer Name Role Phone Rosa Hanson Primary Care Provider [phone] Medications polyethylene glycol (Golytely) 236-22.74-6.74 -5.86 gram [...] EST Narrative 05/14/2019 1:37 PM EST [facility] Diagnostic Imaging Department [address] [place] [id number] Patient: MARTIN GARCIA Curtis /Age/Sex: 1970 - 49 - F Unit#: [id number] Location/Status: [facility] CLI Mnemonic/[facility]ing [facility] Ordering Physician: MARIA EUGENIA MERCER Peter Screening Digital - 05/14/19 - 1045 History: Bilateral breast cancer screening. Technique: Bilateral digital mammography. Conventional CC and MLO projections with tomosynthesis MLO views and computer aided detection. Findings: Comparison: Radiology and Imaging incorporated [facility] 07/04/2018 and 05/12/2017. Breast tissue is mostly fatty replaced (category a density) bilaterally (as calculated by [employer] software). There are benign calcifications bilaterally. There is no suspicious group of microcalcification, no suspicious mass, architectural distortion or suspicious asymmetry. Impression: No evidence of malignancy. BIRADS category 2, benign findings, 3342F [id number], [id number] Note: Patient information entered into a reminder system with a target due date for the next mammogram; PQRI II 5009X Dictating Physician: BOY GARZA MD Electronically Signed by: BOY GARZA MD Dic Date/Time: 05/14/19 1336 Sign date/Time: 05/14/19 1337 Procedure Note Boy Garza - 04/06/2022 [facility] Diagnostic Imaging Department [address] [place] [id number] Patient: MARTIN GARCIA Curtis Sotelo/Age/Sex: 1970 - 49 - F Unit#: [id number] Location/Status: [facility] CLI Mnemonic/Ordering Site: [facility] Ordering Physician: MARIA EUGENIA MERCER GRAPHICS COORDINATOR Peter Screening Digital - 05/14/19 - 1045 History: Bilateral breast cancer screening. Technique: Bilateral digital mammography. Conventional CC and MLOprojections with tomosynthesis MLO views and computer aided detection. Findings: Comparison: Radiology and Imaging incorporated [facility] 07/04/2018 and 05/12/2017. Breast tissue is mostly fatty replaced (category a density) bilaterally(as calculated by [employer] software). There are benigncalcifications bilaterally. There is no suspicious group of microcalcification, nosuspicious mass, architectural distortion or suspicious asymmetry. Impression: No evidence of malignancy. BIRADS category 2, benign findings, 3342F 38007, 71056 Note: Patient information entered into a reminder system with a targetdue date for the next mammogram; PQRI II 7058F Dictating Physician: BOY GARZA MD Electronically Signed by: BOY GARZA MD Dic Date/Time: 05/14/19 1336 Sign date/Time: 05/14/19 1337 Nice Jennifer GRAPHICS COORDINATOR IMG BI PROCEDURES Final Result from Last 3 Months or Most Recently Relevant to Health Maintenance Insurance [employer] [place], [place] [id number] [employer] [place] [id number] Care Teams Dynamite Reclaimer Relationship Specialty Start Date End Date Rosa Hanson PCP - General 11/22/23
--- OUTSIDE RECORDS SUMMARY | 2024-12-11 12:09 | XMS_ITS | Clinical Summary ---
Author Organization [facility] Address [address] [place] [address] Care Team Providers Care Construction Ironworker Helper Name Role Phone Rosa Hanson NP Primary Care Provider [phone] Source Comments PLEASE NOTE, if this patient [...] complication, without long-term current use of insulin ([facility]) Dx. E11.65 - Blood sugar check daily 100 Each 11 3 Active blood sugar diagnostic (FREESTYLE TEST) stripsIndicatio ns:Type 2 diabetes mellitus without complication, without long-term current use of insulin ([facility]) Dx. E11.65 - Blood sugar check daily . FREESTYLE LITE Test strips 100 Each 11 3 Active lancetsIndicati ons:Type 2 diabetes mellitus without complication, without long-term current use of insulin ([facility]) Dx. E11.65 - Blood sugar [...] complication, without long-term current use of insulin ([facility]) Take 1 Tablet by mouth once [...] complication, without long-term current use of insulin ([facility]) Take 1 Tablet by mouth 2 (two) times daily before a meal 180 Tablet 1 4 Active metFORMIN (GLUCOPHAGE) 1,000 mg tabletIndicatio ns:Prescription refill,Type 2 diabetes mellitus without complication, without long-term current use of insulin ([facility]) Take 1 Tablet by mouth 2 [...] As per eye examination done 06/15/15 @ [facility].Dr. Carmela Cheung Pinguecula of both eyes 07/04/2015 Overview (07/04/2015): As per eye examination done 06/15/15 @ [facility].Dr. Carmela Cheung Presbyopia 07/04/2015 Overview (07/04/2015): As per eye examination done 06/15/15 @ [facility].Dr. Carmela Cheung Uncontrolled type 2 diabetes mellitus with hyperglycemia ([facility]-H[facility]) 12/24/2014 Overview (12/24/2014): Lab Results Component Value Date HGBA1C 6.8* 12/24/2014 Primary hypertension 02/05/2013 Overview (07/15/2021): [facility] 06/11/16- No pulmonary embolus. Diet controlled currently Hypothyroidism 02/05/2013 Vitamin D deficiency disease 02/05/2013 Immunizations Immunization Administration Dates Next Due Flu, Adjuvant, 65y+ (Fluad) 01/17/2020 Flu, Preservative Free 03/17/2021,2019,04/03/2019,04/26 Hep B, Adult/Adol (HYWSKAD-W-ASRMN/RECOMBIVAX-ADULT) 02/09/2012,09/08/2011,08/09/2011 INFLUENZA, SEASONAL, INJECTABLE 02/22/2016,01/30,04/11/2012 INFLUENZA, SEASONAL, [...] 05/31/19 13 Imm-Zoster, Recombinant Completed 03/22/2023, 12/15 [id number] Completed 01/17/2024, 01/15, 04/06/2021, Additional history exists [...] Uncontrolled type 2 diabetes mellitus with hyperglycemia ([facility]) LIPID PANEL Routine 09/26/2023 9:38 AM EDT Uncontrolled type 2 diabetes mellitus with hyperglycemia ([facility]) MICROALBUMIN/CREATININE RATIO, URINE, RANDOM Routine 09/26/2023 9:38 AM EDT Uncontrolled type 2 diabetes mellitus with hyperglycemia ([facility]-CMS) HEMOGLOBIN GLYCOSYLATED A1C Routine 09/26/2023 9:38 AM EDT Uncontrolled type 2 diabetes mellitus with hyperglycemia ([facility]) FECAL GLOBIN BY IMMUNOCHEMISTRY (FIT) [...] EDT) TSH 1.36 0.40 - 4.50 mIU/L [facility] Comment: Reference Range > or = 20 Years 0.40-4.50 Ranges First trimester 0.26-2.66 Second trimester 0.55-2.73 Third trimester 0.43-2.91 Blood Blood / Unknown 09/26/2023 9 :38 AM EDT 09/26/2023 9:38 AM EDT Rosa Hanson NP LAB - BLOOD DRAW Edited Resu lt - Final [facility] [address] [place] [id number], [employer] [employer] [address] [address] * MICROALBUMIN/CREATININE RATIO, URINE, RANDOM (09/26/2023 9:38 AM EDT) CREATININE, RANDOM URINE 79 20 - 275 mg/dL [facility] MICROALBUMIN 0.2 mg/dL [employer] [facility] Comment: Reference Range Not established MICROALBUMIN/CREA TININE RATIO, RANDOM URINE 3 <30 mg/g creat [facility] Comment: The ADA defines abnormalities in albumin [...] AMBULATORY Final R esult Performing Organization Address [facility] Co de Phone Number [employer] [address] [address], [facility] [address] [address] * (ABNORMAL) HEMOGLOBIN GLYCOSYLATED A1C (09/26/2023 9:38 AM EDT) HEMOGLOBIN A1C 9.7(H) <5.7 % of total Hgb [facility] Comment: For someone without known diabetes, a [...] Resu lt - Final Performing Organization Address City/[facility]/ZIP Co de Phone Number [employer] [facility] [address] [address], [facility] [address] [address] * (ABNORMAL) LIPID PANEL (09/26/2023 9:38 AM EDT) CHOLESTEROL, TOTAL 145 <200 mg/dL [facility] HDL CHOLESTEROL 49(L) > OR = 50 mg/dL [facility] TRIGLYCERIDES 163(H) <150 mg/dL [facility] LDL-CHOLESTEROL 72 99 mg/dL (calc) [facility] Comment: Reference range: <100 Desirable range <100 mg/dL for primary prevention; <70 mg/dL for patients with CHD or diabetic patients with > or = 2 CHD risk factors. LDL-C is now calculated using the Renato calculation, which is a validated novel method providing better accuracy than the Friedewald equation in the estimation of LDL-C. Evan SS et al. VIVIAN. 2013;310(19): 0415-1387 (http://education.[employer]/faq/BJL092) CHOL/HDLC RATIO 3.0 <5.0 (calc) [facility] NON-HDL CHOLESTEROL 96 <130 mg/dL (calc) [facility] Comment: For patients with diabetes plus 1 major ASCVD risk factor, treating to a non-HDL-C goal of <100 mg/dL (LDL-C of <70 mg/dL) is considered a therapeutic option. Blood Blood / Unknown 09/26/2023 9 :38 AM EDT 09/26/2023 9:38 AM EDT Rosa Hanson NP LAB - BLOOD DRAW Final Resul t [facility] [address] [place] [address], [facility] [address] [place] [phone] * (ABNORMAL) COMPREHENSIVE METABOLIC PANEL (09/26/2023 9:38 AM EDT) GLUCOSE 135(H) 65 - 99 mg/dL [facility] Comment: Fasting reference interval For someone without known diabetes, a glucose value >125 mg/dL indicates that they may have diabetes and this should be confirmed with a follow-up test. UREA NITROGEN (BUN) 10 7 - 25 mg/dL [facility] CREATININE (blood) 0.67 0.50 - 1.03 mg/dL [facility] EGFR 106 > OR = 60 mL/min/1. 73m2 [facility] BUN/CREATININE RATIO SEE NOTE: [facility] Comment: Not Reported: BUN and Creatinine are within reference range. SODIUM 141 135 - 146 mmol/L [facility] POTASSIUM 4.7 3.5 - 5.3 mmol/L [employer] [facility] CHLORIDE 106 98 - 110 mmol/L [employer] [facility] CARBON DIOXIDE 26 20 - 32 mmol/L [employer] [facility] CALCIUM 9.6 8.6 - 10.4 mg/dL [employer] [facility] PROTEIN, TOTAL 7.2 6.1 - 8.1 g/dL [employer] [facility] ALBUMIN 4.1 3.6 - 5.1 g/dL [employer] [facility] GLOBULIN 3.1 1.9 - 3.7 g/dL (calc) [employer] [facility] ALBUMIN/GLOBULI N RATIO 1.3 1.0 - 2.5 (calc) [employer] [facility] BILIRUBIN, TOTAL 0.6 0.2 - 1.2 mg/dL [employer] [facility] ALKALINE PHOSPHATASE 68 37 - 153 U/L [employer] [facility] AST 30 10 - 35 U/L [employer] [facility] ALT 40(H) 6 - 29 U/L [employer] [facility] Blood Blood / Unknown 09/26/2023 9 :38 AM EDT 09/26/2023 9:38 AM EDT Rosa Hanson CASTING REPAIRER LAB - BLOOD DRAW Edited Resu lt - Final Performing Organization Address City/[facility] Co de Phone Number [employer] [address] [address], [employer] [address] [address] * FIT DIAGNOSITC ONLY (10/04/2022 8:00 PM EDT) FECAL GLOBIN BY IMMUNOCHEMISTRY See Note [employer] [facility] Comment: FECAL GLOBIN BY IMMUNOCHEMISTRY Micro Number: [id number] Test Status: Final Specimen Source: Insure (tm) fobt test card Specimen Quality: Adequate Fecal Globin: Not Detected Stool Stool specimen / Unknown 10/04/2022 8:00 PM EDT 10/06/2022 3:24 AM EDT Blanca Rankin INSULATION BOARD BACK TENDER-C LAB BODY FLUIDS AND STOOLS A MBULATORY Final Result Performing Organization Address City/[facility] Co de Phone Number [employer] [address] [address], [employer] [address] [address] * THIN PREP IMAGE PAP + HPV RNA E6/E7 W/RFLX HPV 16, 18/45 (06/17/2021 10:13 AM EST) CLINICAL INFORMATION See Note [employer] [facility] Comment:Routine exam LMP See Note [employer] [facility] Comment:[id number] PREV. PAP See Note [employer] [facility] Comment:NONE GIVEN PREV. BX See Note [employer] [facility] Comment:NONE GIVEN SOURCE See Note [employer] [facility] Comment:Cervix STATEMENT OF ADEQUACY See Note [employer] [facility] Comment: Satisfactory for evaluation. Endocervical/transformation zone component present. INTERPRETATION/RESU LT See Note [employer] [facility] Comment:Negative for intraep ithelial lesion or malignancy. COMMENT See Note [employer] [facility] Comment: This Pap test has been evaluated with computer assisted technology. MACADAM RAKER See Note [facility], [facility] [employer] [facility] Comment: KEBEDE, CT(ASCP) CT screening location: [place] [address] COMMENT [employer] [facility] HPV MRNA E6/E7 Not Detected Not Detected [employer] [facility] Comment: Methodology: Extruder Operator Helper-Mediated Amplification This assay detects E6/E7 viral messenger RNA (mRNA) from 14 high-risk HPV types (16,18,31,33,35,39,45,51,52,56,58,59,66,68). The analytical performance characteristics of this assay have been determined by [employer]. The modifications have not been cleared or approved by the FDA. This assay has been validated pursuant to the CLIA regulations and is used for clinical purposes. For additional information, please refer to http://education.Watchup.dondeEsta™/faq/CQJ900q6 (This link if provided for information/ educational purposes only.) Cervix Cervix uteri structure / Unknown 06/17/2021 10:13 AM EST 06/18/2021 3:22 AM EST Narrative [facility] - 06/21/2021 9:42 AM EST EXPLANATORY NOTE: [...] CYTOLOGY AMBULATORY Final Result Performing Organization Address [facility] Co de Phone Number [employer] [facility] [address] [address], [employer] [address],[place] [address] * HEPATITIS C AB W/RFLX HCV RNA, QT, RT PCR (12/23/2020 10:01 AM EDT) HEPATITIS C ANTIBODY NON-REACT MARKOS NON-REACT MARKOS [facility] [employer] [facility] SIGNAL TO CUT-OFF 0.03 <1.00 [employer] [facility] Comment: HCV antibody was non-reactive. There is no laboratory evidence of HCV infection. In most cases, no further action is required. However, if recent HCV exposure is suspected, a test for HCV RNA (test code 77450) is suggested. For additional information please refer to http://education.[employer]/faq/TCI56x9 (This link is being provided for informational/ educational purposes only.) Blood Blood / Unknown 12/23/2020 1 0:01 AM EDT 12/23/2020 10:02 AM EDT Narrative [employer] [facility] - 12/25/2020 8:45 PM EDT FASTING:YES Blanca Massiel BARKSDALEP-C LAB - BLOOD DRAW Edited Resu lt - Final Performing Organization Address [facility]/ZIP Co de Phone Number [employer] [facility] [address] [address], [employer] [address] [address] * HIV 1/2 AG & AB W/RFLX (4TH GEN) (12/23/2020 10:01 AM EDT) HIV AG/AB, 4TH GEN NON-REAC TIVE NON-REAC TIVE [employer] [facility] Comment: HIV-1 antigen and HIV-1/HIV-2 antibodies [...] purpose. For additional information please refer to http://education.[employer]/faq/AIL889 (This link is being provided for informational/ educational purposes only.) The performance of this assay has not been clinically validated in patients less than 2 years old. Blood Blood / Unknown 12/23/2020 1 0:01 AM EDT 12/23/2020 10:02 AM EDT Narrative [facility] - 12/25/2020 8:45 PM EDT FASTING:YES Blanca BARKSDALEP-C LAB - BLOOD DRAW Edited Resu lt - Final [employer] [facility] [address] [address], [employer] [address] [address] * MAMMOGRAM BI-RADS, ABSTRACTED (05/14/2019 1:59 PM [...] Most Recently Relevant to Health Maintenance Insurance [place] MEDICA[place] DENTAL [facility] HEALTH INSURANCE HEALTH SAFETY [place] [id number] Care Teams Construction Ironworker Helper Relationship Specialty Start Date End Date Rosa Hanson NP [address] [place] [address] PCP - General Internal Medicine 05/12/23
== END 2024-12-11 12:21 | disposition home or self-care (01) ==
LOC: HO.HMCFM 11:15
PROVIDERS: PCP Physician Assistant; Visit Provider Physician Assistant
DX: I10 Essential (primary) hypertension (principal); E78.5 Hyperlipidemia, unspecified; E11.65 Type 2 diabetes mellitus with hyperglycemia; L30.9 Dermatitis, unspecified

== ENCOUNTER → 2024-12-11 11:15 | Outpatient (BNVA) | payer OTHER, SELFPAY | PROVIDERS: PCP Physician Assistant; Visit Provider Physician Assistant | DX: I10 Essential (primary) hypertension (principal); E03.9 Hypothyroidism, unspecified; E78.5 Hyperlipidemia, unspecified; E11.65 Type 2 diabetes mellitus with hyperglycemia; L30.9 Dermatitis, unspecified; E11.29 Type 2 diabetes mellitus with other diabetic kidney complication; R80.9 Proteinuria, unspecified; Z79.4 Long term (current) use of insulin; Z79.899 Other long term (current) drug therapy | CPT/HCPCS: 99212 ==

== ENCOUNTER 2024-12-19 09:28 | Outpatient (AMB) | payer OTHER, SELFPAY ==
--- NOTE | 2024-12-19 09:35 | MHC.PC.OV ---
Vital Signs 12/19/24 09:44 Height 5 ft 5 in Weight 148 lb 5 oz BMI 24.7 BP 126/78 Blood Pressure Location Rt brachial Position Sitting Respiration 14 Pulse 75 Pulse Source Pulse Oximeter Temp 98.2 F Temp Source Oral Pulse Oximetry (%) 98 Oxygen Delivery Method Room Air Intake Visit Reasons: 2 Months Intake Note: Requesting referral for glue maker bone for itching skin. Medication prescribed did not work. Having trouble sleeping through the night due to itching. Dental Patient Coordinator Required: Yes Dental Patient Coordinator Name: [id number] Allergies semaglutide (From Panvidea) Adverse Reaction (Unknown, Verified 12/19/24 09:43) fatigue, loss of appetite, fever Medication List - Last Reconciled 12/19/24 by Roselyn Mosley PA-C atorvastatin 20 mg PO DAILY blood-glucose sensor (Aha MobileStyle Ceasar 3 Plus Sensor device) Use daily As directed to monitor glucose blood-glucose,survey researcher,cont (FreeStyle Ceasar 3 [place]) Use daily As directed to monitor blood glucose cholecalciferol (vitamin D3) (Vitamin D3) 50 mcg PO DAILY hydroxyzine HCl 10 mg PO TID PRN 10 days insulin glargine (Lantus Solostar U-100 Insulin) 10 units (0.1 mL) subcut QPM levothyroxine 50 mcg PO DAILY lisinopril 2.5 mg PO DAILY loratadine (Allergy Relief (loratadine)) 10 mg PO DAILY metformin 1,000 mg PO BID pen needle, diabetic Use daily As directed triamcinolone acetonide 0.5% 1 appl topical TID 7 days Tobacco use date assessed: 12/19/24 Dental Screening Dental Screen Date: 06/27/24 HPI 2 Months HPI Details Patient is a 54-year-old female who presents today for a follow up. Phone: Van[facility] -of note she was supposed to have a chest CT a few weeks ago but no showed the appointment for an incidental finding. We reviewed this again today and she tells me that she never had heard from them. Endo: dm- Last A1c was 9. dx around 2009. Never had DM education and is adamant that she does not want this. Denies any hypoglycemic events-but refuses to check blood sugars. She is currently on metformin 1000 mg twice a day. After an extensive visit last time we discussed starting Lantus. She was supposed to start this medication but tells me she never picked it up from the pharmacy. She also has not picked up her sensors. -did not tolerate glipizide as it caused dizziness, Trulicity caused injection site pain and skin irritation along with mild nausea. Ozempic caused significant food inversions and nausea. -not interested at this point in diabetic Education. hypothyroid- last TSH was WNL. Currently on levothyroxine 50 mcg. CV: Blood pressure today in the office is 126/78. She is currently on lisinopril 2.5 mg daily. Cholesterol is managed with atorvastatin 20 mg. LDL 62. GI: Lfts have been persistently elevated. Had an appointment scheduled with GI but had to switch it so she will now not be seen until February. Liver ultrasound from the ER shows hepatic steatosis. We discussed the importance of monitoring and managing her diabetes. Derm: The skin appears to be improved but she still is itchy throughout. Does not notice any significant improvement with the hydroxyzine. Mammo: many years ago - booked 09/05 but then she canceled and states that she has a still reschedule this and we will do this on her own. Colonoscopy: never had- was scheduled but did not do this Pap/Rug Dyer Helper: referred at last visit Bone density: never had, lmp 2020. 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 Jarrod Gonzales, Dannielle Lake, Sam Celestin and colleagues, with an educational kristofer from [employer]. Physical exam (Primary Care) Vital Signs: Last Vital Signs Temp 98.2 F 12/19/24 09:44 Pulse 75 12/19/24 09:44 Resp 14 12/19/24 09:44 BP 126/78 12/19/24 09:44 Pulse Ox 98 12/19/24 09:44 Oxygen Delivery Method Room Air 12/19/24 09:44 BMI result Body Mass Index 24.7 Tobacco/Smoking Status: Tobacco use Status Tobacco use date assessed 12/19/24 12/19/24 09:45 Patient Tobacco Use Status Former Tobacco user 12/19/24 09:37 Tobacco use type Smokeless Tobacco (chewing 12/19/24 09:37 tobacco) e-Cigarette/Vaping Use Never Used 12/19/24 09:37 Thrive Assessment: Date of Thrive Assessment Date Thrive assessed 06/27/24 12/19/24 09:37 Const Orientation/consciousness: patient oriented x3 HENMT Ears: hearing grossly normal bilaterally Neck Thyroid: Thyroid normal Lymphatic: no lymphadenopathy noted Resp Auscultation: clear to auscultation bilaterally Cardio Rate: regular rate Rhythm: regular rhythm Heart sounds: S1 normal heart sound present and S2 normal heart sound present GI Inspection: Yes normal to inspection Palpation (GI): Soft to palpation and Other GI palpation findings present (nontender, no cva tenderness) Auscultation: normoactive bowel sounds Rectal Exam - Female: deferred Skin General skin exam: no rashes or lesions noted Neuro General: patient oriented x3, gait normal and no focal motor deficits Coding Level of Care Code Est Pt Level 4 (73787) Complex EM visit Add On G2211 Diagnoses Dermatitis L30.9 Uncontrolled type 2 diabetes mellitus with hyperglycemia, without long-term current use of insulin E11.65 HTN (hypertension) I10 Elevated LFTs R79.89 Pruritic condition L29.9 Decreased appetite R63.0 Assessment & Plan Assessment & Plan (1) Dermatitis: Code(s): L30.9 - Dermatitis, unspecified Category: Medical Plan: Referral to derm Increase dosage of hydroxyzine if needed Add Zyrtec daily Blood work ordered (2) Uncontrolled type 2 diabetes mellitus with hyperglycemia, without long-term current use of insulin: Code(s): E11.65 - Type 2 diabetes mellitus with hyperglycemia Category: Medical Plan: Start Lantus Reviewed sensor and advised her to start using this and to monitor her blood sugars (3) HTN (hypertension): Code(s): I10 - Essential (primary) hypertension Category: Medical Plan: WNL. Continue current regimen (4) Elevated LFTs: Code(s): R79.89 - Other specified abnormal findings of blood chemistry Category: Medical Plan: Labs ordered (5) Pruritic condition: Code(s): L29.9 - Pruritus, unspecified Category: Medical Plan: As above (6) Decreased appetite: Code(s): R63.0 - Anorexia Category: Medical Plan: Weight stable. Has referral to GI. Advised to complete chest CT. Orders: Orders Liver Panel Today E11.65 - Type 2 diabetes mellitus with hyperglycemia, I10 - Essential (primary) hypertension, L29.9 - Pruritus, unspecified, L30.9 - Dermatitis, unspecified, R63.0 - Anorexia, R79.89 - Other specified abnormal findings of blood chemistry Erythrocyte Sedimentation Rate Today .65 - Type 2 diabetes mellitus with hyperglycemia, I10 - Essential (primary) hypertension, L29.9 - Pruritus, unspecified, L30.9 - Dermatitis, unspecified, R63.0 - Anorexia, R79.89 - Other specified abnormal findings of blood chemistry TSH reflex Free T4 Today . - Type 2 diabetes mellitus with hyperglycemia, I10 - Essential (primary) hypertension, L29.9 - Pruritus, unspecified, L30.9 - Dermatitis, unspecified, R63.0 - Anorexia, R79.89 - Other specified abnormal findings of blood chemistry IRON PROFILE Today .65 - Type 2 diabetes mellitus with hyperglycemia, I10 - Essential (primary) hypertension, L29.9 - Pruritus, unspecified, L30.9 - Dermatitis, unspecified, R63.0 - Anorexia, R79.89 - Other specified abnormal findings of blood chemistry Vitamin B12 and Folate Today .65 - Type 2 diabetes mellitus with hyperglycemia, I10 - Essential (primary) hypertension, L29.9 - Pruritus, unspecified, L30.9 - Dermatitis, unspecified, R63.0 - Anorexia, R79.89 - Other specified abnormal findings of blood chemistry Complete Blood Count Auto Diff Today .65 - Type 2 diabetes mellitus with hyperglycemia, I10 - Essential (primary) hypertension, L29.9 - Pruritus, unspecified, L30.9 - Dermatitis, unspecified, R63.0 - Anorexia, R79.89 - Other specified abnormal findings of blood chemistry Basic Metabolic Panel Today E11.65 - Type 2 diabetes mellitus with hyperglycemia, I10 - Essential (primary) hypertension, L29.9 - Pruritus, unspecified, L30.9 - Dermatitis, unspecified, R63.0 - Anorexia, R79.89 - Other specified abnormal findings of blood chemistry Ferritin Today E11.65 - Type 2 diabetes mellitus with hyperglycemia, I10 - Essential (primary) hypertension, L29.9 - Pruritus, unspecified, L30.9 - Dermatitis, unspecified, R63.0 - Anorexia, R79.89 - Other specified abnormal findings of blood chemistry Referrals Dermatology Referral L30.9 - Dermatitis, unspecified Endocrinology Referral E11.65 - Type 2 diabetes mellitus with hyperglycemia Medications: New cetirizine (Zyrtec) 10 mg PO DAILY 90 tabs 0RF hydroxyzine HCl 25 mg PO BID PRN 60 tabs 0RF itching Patient Instructions: 200 [facility] 106 [place] [facility]
[2024-12-19 09:44] VITALS: BP 126/78; PULSE 75; RESP 14; TEMP 36.8; O2SAT 98; BMI 24.7
--- OUTSIDE RECORDS SUMMARY | 2024-12-19 10:11 | XMS_ITS | Clinical Summary ---
Author Organization [facility] Address [address] [place] [address] Care Team Providers Care Equal Opportunity Counselor Name Role Phone Rosa Hanson NP Primary [...] complication, without long-term current use of insulin ([facility]) Dx. E11.65 - Blood sugar check daily 100 Each 11 3 Active blood sugar diagnostic (FREESTYLE TEST) stripsIndicatio ns:Type 2 diabetes mellitus without complication, without long-term current use of insulin ([facility]) Dx. E11.65 - Blood sugar check daily . FREESTYLE LITE Test strips 100 Each 11 3 Active lancetsIndicati ons:Type 2 diabetes mellitus without complication, without long-term current use of insulin ([facility]) Dx. E11.65 - Blood sugar [...] complication, without long-term current use of insulin ([facility]) Take 1 Tablet by mouth once [...] complication, without long-term current use of insulin ([facility]) Take 1 Tablet by mouth 2 (two) times daily before a meal 180 Tablet 1 4 Active metFORMIN (GLUCOPHAGE) 1,000 mg tabletIndicatio ns:Prescription refill,Type 2 diabetes mellitus without complication, without long-term current use of insulin ([facility]) Take 1 Tablet by mouth 2 [...] As per eye examination done 06/15/15 @ [facility].Dr. Carmela Cheung Pinguecula of both eyes 07/04/2015 Overview (07/04/2015): As per eye examination done 06/15/15 @ [facility].Dr. Carmela Cheung Presbyopia 07/04/2015 Overview (07/04/2015): As per eye examination done 06/15/15 @ [facility].Dr. Carmela Cheung Uncontrolled type 2 diabetes mellitus with hyperglycemia ([facility]) 12/24/2014 Overview (12/24/2014): Lab Results Component Value Date HGBA1C 6.8* 12/24/2014 Primary hypertension 02/05/2013 Overview (07/15/2021): [facility] 06/11/16- No pulmonary embolus. Diet controlled currently Hypothyroidism 02/05/2013 Vitamin D deficiency disease 02/05/2013 Immunizations Immunization Administration Dates Next Due Flu, Adjuvant, 65y+ (Fluad) 01/17/2020 Flu, Preservative Free 03/17/2021,2019,04/03/2019,04/26 Hep B, Adult/Adol (FYWEFUP-B-SZCNX/RECOMBIVAX-ADULT) 02/09/2012,09/08/2011,08/09/2011 INFLUENZA, SEASONAL, INJECTABLE 02/22/2016,01/30,04/11/2012 INFLUENZA, SEASONAL, [...] 05/31/19 13 Imm-Zoster, Recombinant Completed 03/22/2023, 12/15 [id number] Completed 01/17/2024, 01/15, 04/06/2021, Additional history exists [...] Uncontrolled type 2 diabetes mellitus with hyperglycemia ([facility]) LIPID PANEL Routine 09/26/2023 9:38 AM EDT Uncontrolled type 2 diabetes mellitus with hyperglycemia ([facility]) MICROALBUMIN/CREATININE RATIO, URINE, RANDOM Routine 09/26/2023 9:38 AM EDT Uncontrolled type 2 diabetes mellitus with hyperglycemia ([facility]-CMS) HEMOGLOBIN GLYCOSYLATED A1C Routine 09/26/2023 9:38 AM EDT Uncontrolled type 2 diabetes mellitus with hyperglycemia ([facility]) FECAL GLOBIN BY IMMUNOCHEMISTRY [...] EDT) TSH 1.36 0.40 - 4.50 mIU/L [employer] [facility] Comment: Reference Range > or = 20 Years 0.40-4.50 Ranges First trimester 0.26-2.66 Second trimester 0.55-2.73 Third trimester 0.43-2.91 Blood Blood / Unknown 09/26/2023 9 :38 AM EDT 09/26/2023 9:38 AM EDT Rosa Hanson NP LAB - BLOOD DRAW Edited Resu lt - Final [employer] [address] [place] [id number], [employer] [address] [address] * MICROALBUMIN/CREATININE RATIO, URINE, RANDOM (09/26/2023 9:38 AM EDT) CREATININE, RANDOM URINE 79 20 - 275 mg/dL [employer] MICROALBUMIN 0.2 mg/dL [employer] Comment: Reference Range Not established MICROALBUMIN/CREA TININE RATIO, RANDOM URINE 3 <30 mg/g creat [employer] Comment: The ADA defines abnormalities in albumin [...] Final R esult Performing Organization Address [facility] Co de Phone Number [employer] [address] [address], [employer] [address] [address] * (ABNORMAL) HEMOGLOBIN GLYCOSYLATED A1C (09/26/2023 9:38 AM EDT) HEMOGLOBIN A1C 9.7(H) <5.7 % of total Hgb [employer] Comment: For someone without known diabetes, a [...] Resu lt - Final Performing Organization Address City/[facility]/ZIP Co de Phone Number [employer] [employer] [facility] [address] [address], [employer] [address] [address] * (ABNORMAL) LIPID PANEL (09/26/2023 9:38 AM EDT) CHOLESTEROL, TOTAL 145 <200 mg/dL [employer] HDL CHOLESTEROL 49(L) > OR = 50 mg/dL [employer] TRIGLYCERIDES 163(H) <150 mg/dL [employer] LDL-CHOLESTEROL 72 99 mg/dL (calc) [employer] Comment: Reference range: <100 Desirable range <100 mg/dL for primary prevention; <70 mg/dL for patients with CHD or diabetic patients with > or = 2 CHD risk factors. LDL-C is now calculated using the Renato calculation, which is a validated novel method providing better accuracy than the Friedewald equation in the estimation of LDL-C. Evan SS et al. VIVIAN. 2013;310(19): 1864-8637 (http://education.AutoUncle/faq/GIV663) CHOL/HDLC RATIO 3.0 <5.0 (calc) [employer] NON-HDL CHOLESTEROL 96 <130 mg/dL (calc) [employer] Comment: For patients with diabetes plus 1 major ASCVD risk factor, treating to a non-HDL-C goal of <100 mg/dL (LDL-C of <70 mg/dL) is considered a therapeutic option. Blood Blood / Unknown 09/26/2023 9 :38 AM EDT 09/26/2023 9:38 AM EDT Rosa Hanson NP LAB - BLOOD DRAW Final Resul t [employer] [address] [place] [id number], [employer] [address] [place] [phone] * (ABNORMAL) COMPREHENSIVE METABOLIC PANEL (09/26/2023 9:38 AM EDT) GLUCOSE 135(H) 65 - 99 mg/dL [employer] Comment: Fasting reference interval For someone without known diabetes, a glucose value >125 mg/dL indicates that they may have diabetes and this should be confirmed with a follow-up test. UREA NITROGEN (BUN) 10 7 - 25 mg/dL [employer] CREATININE (blood) 0.67 0.50 - 1.03 mg/dL [employer] EGFR 106 > OR = 60 mL/min/1. 73m2 [employer] BUN/CREATININE RATIO SEE NOTE: [employer] Comment: Not Reported: BUN and Creatinine are within reference range. SODIUM 141 135 - 146 mmol/L [employer] POTASSIUM 4.7 3.5 - 5.3 mmol/L [employer] [facility] CHLORIDE 106 98 - 110 mmol/L [employer] [facility] CARBON DIOXIDE 26 20 - 32 mmol/L [employer] [facility] CALCIUM 9.6 8.6 - 10.4 mg/dL [employer] [facility] PROTEIN, TOTAL 7.2 6.1 - 8.1 g/dL [employer] [facility] ALBUMIN 4.1 3.6 - 5.1 g/dL [employer] [facility] GLOBULIN 3.1 1.9 - 3.7 g/dL (calc) [employer] [facility] ALBUMIN/GLOBULI N RATIO 1.3 1.0 - 2.5 (calc) [employer] [facility] BILIRUBIN, TOTAL 0.6 0.2 - 1.2 mg/dL [employer] [facility] ALKALINE PHOSPHATASE 68 37 - 153 U/L [employer] [facility] AST 30 10 - 35 U/L [employer] [facility] ALT 40(H) 6 - 29 U/L [employer] [facility] Blood Blood / Unknown 09/26/2023 9 :38 AM EDT 09/26/2023 9:38 AM EDT Rosa Hanson [employer]BESTOS SIDING MECHANIC LAB - BLOOD DRAW Edited Resu lt - Final Performing Organization Address City/[facility] Co de Phone Number [employer] [address] [address], [employer] [address] [address] * FIT DIAGNOSITC ONLY (10/04/2022 8:00 PM EDT) FECAL GLOBIN BY IMMUNOCHEMISTRY See Note [employer] [facility] Comment: FECAL GLOBIN BY IMMUNOCHEMISTRY Micro Number: [id number] Test Status: Final Specimen Source: Insure (tm) fobt test card Specimen Quality: Adequate Fecal Globin: Not Detected Stool Stool specimen / Unknown 10/04/2022 8:00 PM EDT 10/06/2022 3:24 AM EDT Blanca Rankin [employer] LAB BODY FLUIDS AND STOOLS A MBULATORY Final Result Performing Organization Address City/[facility] Co de Phone Number [employer] [address] [address], [employer] [address] [address] * THIN PREP IMAGE PAP + HPV RNA E6/E7 W/RFLX HPV 16, 18/45 (06/17/2021 10:13 AM EST) CLINICAL INFORMATION See Note [employer] [facility] Comment:Routine exam LMP See Note [employer] [facility] Comment:[id number] PREV. PAP See Note [employer] [facility] Comment:NONE GIVEN PREV. BX See Note [employer] [facility] Comment:NONE GIVEN SOURCE See Note [employer] [facility] Comment:Cervix STATEMENT OF ADEQUACY See Note [employer] [facility] Comment: Satisfactory for evaluation. Endocervical/transformation zone component present. INTERPRETATION/RESU LT See Note [employer] [facility] Comment:Negative for intraep ithelial lesion or malignancy. COMMENT See Note [employer] [facility] Comment: This Pap test has been evaluated with computer assisted technology. SALESPERSON WOMEN'S DRESSES See Note [facility] [employer] [facility] Comment: KEBEDE, CT(ASCP) CT screening location: [place] [address] COMMENT [employer] [facility] HPV MRNA E6/E7 Not Detected Not Detected [employer] [facility] Comment: Methodology: Deputy Head-Mediated Amplification This assay detects E6/E7 viral messenger RNA (mRNA) from 14 high-risk HPV types (16,18,31,33,35,39,45,51,52,56,58,59,66,68). The analytical performance characteristics of this assay have been determined by [employer]. The modifications have not been cleared or approved by the FDA. This assay has been validated pursuant to the CLIA regulations and is used for clinical purposes. For additional information, please refer to http://education.biix, Inc..WireImage/faq/KHE719z8 (This link if provided for information/ educational purposes only.) Cervix Cervix uteri structure / Unknown 06/17/2021 10:13 AM EST 06/18/2021 3:22 AM EST Narrative [employer] - 06/21/2021 9:42 AM EST EXPLANATORY NOTE: [...] AMBULATORY Final Result Performing Organization Address [facility] Co de Phone Number [facility] [employer] [address] [address], [employer] [address],[place] [address] * HEPATITIS C AB W/RFLX HCV RNA, QT, RT PCR (12/23/2020 10:01 AM EDT) HEPATITIS C ANTIBODY NON-REACT MARKOS NON-REACT MARKOS [employer] [facility] SIGNAL TO CUT-OFF 0.03 <1.00 [employer] [facility] Comment: HCV antibody was non-reactive. There is no laboratory evidence of HCV infection. In most cases, no further action is required. However, if recent HCV exposure is suspected, a test for HCV RNA (test code 21129) is suggested. For additional information please refer to http://education.SMSA CRANE ACQUISITION/faq/LGT64m3 (This link is being provided for informational/ educational purposes only.) Blood Blood / Unknown 12/23/2020 1 0:01 AM EDT 12/23/2020 10:02 AM EDT Narrative [facility] - 12/25/2020 8:45 PM EDT FASTING:YES Blanca Massiel BARKSDALEP-C LAB - BLOOD DRAW Edited Resu lt - Final Performing Organization Address [facility]/ZIP Co de Phone Number [facility] [employer] [address] [address], [employer] [address] [address] * HIV 1/2 AG & AB W/RFLX (4TH GEN) (12/23/2020 10:01 AM EDT) HIV AG/AB, 4TH GEN NON-REAC TIVE NON-REAC TIVE [employer] [facility] Comment: HIV-1 antigen and HIV-1/HIV-2 antibodies [...] purpose. For additional information please refer to http://education.SMSA CRANE ACQUISITION/faq/FNI486 (This link is being provided for informational/ educational purposes only.) The performance of this assay has not been clinically validated in patients less than 2 years old. Blood Blood / Unknown 12/23/2020 1 0:01 AM EDT 12/23/2020 10:02 AM EDT Narrative [facility] - 12/25/2020 8:45 PM EDT FASTING:YES Blanca BARKSDALEP-C LAB - BLOOD DRAW Edited Resu lt - Final [facility] [employer] [address] [address], [employer] [address] [address] * MAMMOGRAM BI-RADS, ABSTRACTED (05/14/2019 1:59 PM [...] Most Recently Relevant to Health Maintenance Insurance [place] D[place] [facility] HEALTH INSURANCE HEALTH SAFETY [place] [address] Care Teams Equal Opportunity Counselor Relationship Specialty Start Date End Date Rosa Hanson NP [address] [place] [address] PCP - General Internal Medicine 05/12/23
--- OUTSIDE RECORDS SUMMARY | 2024-12-19 10:11 | XMS_ITS | Clinical Summary ---
Author Organization [facility] Address [address] [place] [address] Phone Care Team Providers Care Honey Liquefier Name Role Phone Rosa Hanson Primary Care Provider [phone] Medications polyethylene glycol (Golytely) 236-22.74-6.74 -5.86 gram [...] AM EST Narrative 05/14/2019 1:37 PM EST [facility] Diagnostic Imaging Department [address] [place] [id number] Patient: MARTIN GARCIA Curtis /Age/Sex: 1970 - 49 - F Unit#: [id number] Location/Status: [facility] CLI [facility]em[facility] Physician: MARIA EUGENIA MERCER Peter Screening Digital - 05/14/19 - 1045 History: Bilateral breast cancer screening. Technique: Bilateral digital mammography. Conventional CC and MLO projections with tomosynthesis MLO views and computer aided detection. Findings: Comparison: Radiology and Imaging incorporated [facility] 07/04/2018 and 05/12/2017. Breast tissue is mostly fatty replaced (category a density) bilaterally (as calculated by [employer] software). There are benign calcifications bilaterally. There is no suspicious group of microcalcification, no suspicious mass, architectural distortion or suspicious asymmetry. Impression: No evidence of malignancy. BIRADS category 2, benign findings, 3342F [address], [id number] Note: Patient information entered into a reminder system with a target due date for the next mammogram; PQRI II [id number] Dictating Physician: BOY GARZA MD Electronically Signed by: BOY GARZA MD Dic Date/Time: 05/14/19 1336 Sign date/Time: 05/14/19 1337 Procedure Note Boy Garza - 04/06/2022 [facility] Diagnostic Imaging Department [address] [place] [address] Patient: MARTIN GARCIA Curtis Sotelo/Age/Sex: 1970 - 49 - F Unit#: [id number] Location/Status: [facility] CLI Mnemonic/Ordering Site: [facility] Ordering Physician: MARIA EUGENIA MERCER ROLLER MECHANIC Peter Screening Digital - 05/14/19 - 1045 History: Bilateral breast cancer screening. Technique: Bilateral digital mammography. Conventional CC and MLOprojections with tomosynthesis MLO views and computer aided detection. Findings: Comparison: Radiology and Imaging incorporated [facility] 07/04/2018 and 05/12/2017. Breast tissue is mostly fatty replaced (category a density) bilaterally(as calculated by [employer] software). There are benigncalcifications bilaterally. There is no suspicious group of microcalcification, nosuspicious mass, architectural distortion or suspicious asymmetry. Impression: No evidence of malignancy. BIRADS category 2, benign findings, 3342F [address], [address] Note: Patient information entered into a reminder system with a targetdue date for the next mammogram; PQRI II 7043F Dictating Physician: BOY GARZA MD Electronically Signed by: BOY GARZA MD Dic Date/Time: 05/14/19 1336 Sign date/Time: 05/14/19 1337 Nice Jennifer ROLLER MECHANIC IMG BI PROCEDURES Final Result from Last 3 Months or Most Recently Relevant to Health Maintenance Insurance [employer] [address] [place], [place] [id number] [employer] [place] [id number] Care Teams Honey Liquefier Relationship Specialty Start Date End Date Rosa Hanson PCP - General 11/22/23
== END 2024-12-19 10:25 | disposition home or self-care (01) ==
LOC: HO.HMCFM 09:28
PROVIDERS: PCP Physician Assistant; Visit Provider Physician Assistant
DX: L30.9 Dermatitis, unspecified (principal); E11.65 Type 2 diabetes mellitus with hyperglycemia; I10 Essential (primary) hypertension; R79.89 Other specified abnormal findings of blood chemistry; L29.9 Pruritus, unspecified; R63.0 Anorexia

== ENCOUNTER 2024-12-19 09:28 | Outpatient (REF) | payer OTHER, SELFPAY ==
[2024-12-19 14:05] LABS: MANUAL DIFF FLAG NO
[2024-12-19 14:09] LABS: Hematocrit 37.9 % (37.0-47.0); Hemoglobin 11.6 g/dl (12.0-16.0); Imm Gran Abs Auto 0.02 X10*3/uL (0.00-0.03); Imm Gran Pct Auto 0.2 % (0.0-0.4); Lymphocytes Absolute Auto 1.7 X10*3/uL (1.2-4.9); Mean Corpuscular HGB Conc 30.6 g/dl (31.0-35.0); Mean Corpuscular Hemoglobin 25.1 pg (27.0-33.0); Mean Corpuscular Volume 82.0 fL (80.0-98.0); NRBC Abs Auto 0.000 X10*3/uL (0.0-0.012); NRBC Pct Auto 0.0 /100WBC (0.0-0.2); Platelet Count 288 X10*3/uL (160-400); Red Blood Count 4.62 X10*6/uL (4.20-5.50); White Blood Count 8.5 X10*3/uL (4.8-10.8)
[2024-12-19 14:27] LABS: Alanine Aminotransferase 26 U/L (0-31); Albumin Level 3.9 g/dL (3.5-5.0); Alkaline Phosphatase 92 U/L (39-117); Anion Gap 12 (12-20); Aspartate Amino Transferase 38 U/L (5-31); Blood Urea Nitrogen 9 mg/dL (9-16); Calcium 9.1 mg/dL (8.4-10.2); Carbon Dioxide 25 mmol/L (22-29); Chloride 100 mmol/L (96-108); Estimated Glomerular Filt Rate > 60; Iron 58 mcg/dL (30-160); Percent Iron Saturation 18 % (15-50); Potassium 4.6 mmol/L (3.3-5.1); Sodium 132 mmol/L (135-145); Total Iron Binding Capacity 323 mcg/dL (228-428); Total Protein 7.5 g/dL (6.5-8.0); Unsaturated Iron Binding 265 ug/dL
[2024-12-19 14:45] LABS: Ferritin 120 ng/mL (10-250)
[2024-12-19 14:53] LABS: Folate 8.1 ng/mL (> or = 4.0); Vitamin B12 489 pg/mL (200-900)
== END 2024-12-19 09:29 | disposition home or self-care (01) ==
LOC: HO.WFDLDS 09:28
PROVIDERS: PCP Physician Assistant; Visit Provider Physician Assistant
DX: I10 Essential (primary) hypertension (principal); E11.65 Type 2 diabetes mellitus with hyperglycemia; R63.0 Anorexia; L30.9 Dermatitis, unspecified; L29.9 Pruritus, unspecified; R79.89 Other specified abnormal findings of blood chemistry; Z79.890 Hormone replacement therapy; Z79.4 Long term (current) use of insulin; Z79.84 Long term (current) use of oral hypoglycemic drugs; Z79.899 Other long term (current) drug therapy
CPT/HCPCS: 36415; 80048; 80076; 82607; 82728; 82746; 83540; 84443; 85025; 85652; 99212

== ENCOUNTER → 2025-01-02 15:14 | Outpatient (BNVA) | payer OTHER, SELFPAY | PROVIDERS: PCP Physician Assistant | DX: Z71.89 Other specified counseling (principal) | CPT/HCPCS: 99211 ==

== ENCOUNTER → 2025-02-04 16:45 | Outpatient (BNVA) | payer OTHER, SELFPAY | PROVIDERS: PCP Physician Assistant | DX: E11.9 Type 2 diabetes mellitus without complications (principal) | CPT/HCPCS: 99211 ==

== ENCOUNTER 2025-02-19 14:19 | Outpatient (AMB) | payer OTHER, SELFPAY ==
--- NOTE | 2025-02-19 14:24 | A.OFFVIS_ITS ---
Vital Signs 02/19/25 14:26 Height 5 ft 4 in Weight 147 lb 11.355 oz BMI 25.4 BP 128/85 Blood Pressure Location Lt brachial Position Sitting Pulse 88 Intake Visit Reasons: Elevated LFTs Intake Note: Man presents in the offie as a new patient for elevated LFTs. CC: Reduction Furnace Operator Helper Required: Yes Allergies semaglutide (From Ozempic) Adverse Reaction (Unknown, Verified 02/19/25 14:26) fatigue, loss of appetite, fever HPI Comments Details: This is a 54-year-old female with past medical history of diabetes, hypothyroidism, hypertension, who presented to the office to establish care for elevated LFTs. Patient is accompanied by her , who also helps to provide most of the history. She reports that labs were checked as part of routine physical, she did not have any symptoms to include abdominal pain, nausea, vomiting, pruritus, abdominal distention. She has also had an ultrasound abdomen through PCP office that shows hepatic steatosis. Spleen size not measured. Patient does not drink. No family history of liver disease. Has diabetes as above. BMI 25. Has sedentary lifestyle. Reports, works in [employer] in the [employer] but often does not have time to prepare healthy foods and ends up having mostly fried food from the cafeteria. Patient is status post cholecystectomy. US abd 10/2024 IMPRESSION: 1. Status post cholecystectomy. 2. Increased hepatic echogenicity compatible with steatosis. 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 [employer] Current occupational exposures/hazards: No Cognitive needs: No Hearing needs: No Vision needs: Yes (glasses) Review of Systems Const All systems reviewed & are unremarkable except as noted in HPI and below Physical Exam Exam Exam: No apparent distress Nonicteric Abdomen soft, nondistended Alert and oriented x3, normal gait Vital Signs: Last Vital Signs Pulse 88 02/19/25 14:26 BP 128/85 11/05/25 14:26 BMI result Body Mass Index 25.4 Assessment & Plan Assessment & Plan (1) LIU (nonalcoholic steatohepatitis): Code(s): K75.81 - Nonalcoholic steatohepatitis (LIU) Category: Medical (2) Uncontrolled type 2 diabetes mellitus with hyperglycemia, without long-term current use of insulin: Code(s): E11.65 - Type 2 diabetes mellitus with hyperglycemia Category: Medical (3) Elevated LFTs: Code(s): R79.89 - Other specified abnormal findings of blood chemistry Category: Medical (4) Dyslipidemia: Code(s): E78.5 - Hyperlipidemia, unspecified Category: Medical Plan Reviewed with the patient that based on presentation, most likely has lean LIU with underlying uncontrolled diabetes and hyperlipidemia. Reviewed that although has normal BMI by [place] standards, she actually is overweight acc BMI cut off for [place] (normal BMI 23 or less). Limited exercise and a healthy food choices such as high fructose in diet are likely contributing as well. Plan: -labs ordered to rule out other etiologies for chronic liver disease -patient counseled extensively to incorporate at least 150 minutes of moderate intensity exercise per week -avoid fried food, foods with fructose -3-5% weight loss over the next 6 months -based on labs are as, if lean liu confirmed, will advocate for pioglitazone as part of diabetes management Follow up 3 months Orders: Orders Alpha 1 Anti-trypsin 02/19/25 - Other specified abnormal findings of blood chemistry Phosphatidylethanol, Blood 02/19/25 - Other specified abnormal findings of blood chemistry Prothrombin Time INR 02/19/25 - Other specified abnormal findings of blood chemistry Liver Kidney Microsomal Ab 02/19/25 - Other specified abnormal findings of blood chemistry Transglutaminase IgA 02/19/25 - Other specified abnormal findings of blood chemistry Immunoglobulin A 02/19/25 - Other specified abnormal findings of blood chemistry GUICHO Reflex Titer and Pattern 02/19/25 - Other specified abnormal findings of blood chemistry Ceruloplasmin 02/19/25 - Other specified abnormal findings of blood chemistry Smooth Muscle Antibody 02/19/25 - Other specified abnormal findings of blood chemistry TSH reflex Free T4 02/19/25 - Other specified abnormal findings of blood chemistry Immunoglobulin G 02/19/25 R79.89 - Other specified abnormal findings of blood chemistry Referrals Automatic Winder Operator Nutrition Referral E11.65 - Type 2 diabetes mellitus with hyp erglycemia Coding Level of Care Code New Pt Level 4 (55754) Complex EM visit Add On G2211 Diagnoses LIU (nonalcoholic steatohepatitis) K75.81 Uncontrolled type 2 diabetes mellitus with hyperglycemia, without long-term current use of insulin E11.65 Elevated LFTs R79.89 Dyslipidemia E78.5
[2025-02-19 14:26] VITALS: BP 128/85; PULSE 88; BMI 25.4
--- OUTSIDE RECORDS SUMMARY | 2025-02-19 17:31 | XMS_ITS | Clinical Summary ---
Author Organization [facility] Address [address] [place] [address] Phone Care Team Providers Care Sed Special Education Teacher Name Role Phone Rosa Hanson Primary Care Provider [phone] Medications polyethylene glycol (Golytely) 236-22.74-6.74 -5.86 gram [...] Smear 1993 Breast Cancer Screening 05/14/2021 05/14/2019 Colorectal Cancer Screening: Stool Based Tests (FOBT/FIT) 03/10/2024 10/04/2022 HIV Screening 03/10/2024 Social Influencers of Health Screening 03/10/2024 Depression Screening 2024 Diabetes: Annual Urine Albumin-Creatinine Ratio (uACR) 09/25/2024 09/26/2023, 06/02/2022, 12/23/2020, Additional history exists Diabetes: Annual GFR (Glomerular Filtration Rate) 09/25/2024 09/26/2023 Diabetes: Blood Sugar Control Test (HGBA1C) 09/25/2024 09/26/2023 Hypertension/CHF/CAD Annual BMP Blood Test 09/25/2024 09/26/2023 COVID-19 Vaccine ( season) 2024 09/02/2020, 08/01/2020 Influenza Vaccine (#1) 2024 , 01/17/2020, 04/03/2019, Additional history exists Cholesterol Screening (Lipid Panel) 09/25/2028 09/26/2023, 09/26/2023, 06/02/2022, Additional history exists DTaP,Tdap,and Td Vaccines (4 - Td or Tdap) 07/22/2031 07/21/2021, 07/06/2011, 03/01/2011 RSV Immunization Adult Patients (1 - 1-dose 75+ series) 2047 MMR Vaccines Aged Out 07/16/2011, 03/01/2011 No [...] Recently Relevant to Health Maintenance Results * [facility] SCREENING DIGITAL (05/14/2019 1:37 PM EST) Anatomical Region Laterality Modality Mammography 05/14/2019 10:2 2 AM EST Narrative 05/14/2019 1:37 PM EST [facility] Diagnostic Imaging Department [address] [place] [id number] Patient: RADHAMARTIN Acevedo /Age/Sex: 1970 - 49 - F Unit#: [id number] Location/Status: [facility] CLI Mnemonic/Ordering Site: [facility] Ordering Physician: MARIA EUGENIA MERCER [facility] Screening Digital - 05/14/19 - 1045 History: Bilateral breast cancer screening. Technique: Bilateral digital mammography. Conventional CC and MLO projections with tomosynthesis MLO views and computer aided detection. Findings: Comparison: Radiology and Imaging incorporated [facility] 07/04/2018 and 05/12/2017. Breast tissue is mostly fatty replaced (category a density) bilaterally (as calculated by [employer] software). There are benign calcifications bilaterally. There is no suspicious group of microcalcification, no suspicious mass, architectural distortion or suspicious asymmetry. Impression: No evidence of malignancy. BIRADS category 2, benign findings, 3342F 75256, [id number] Note: Patient information entered into a reminder system with a target due date for the next mammogram; PQRI II 7037F Dictating Physician: BOY GARZA MD Electronically Signed by: BOY GARZA MD Dic Date/Time: 05/14/19 1336 Sign date/Time: 05/14/19 1337 Procedure Note Boy Garza - 04/06/2022 [facility] Diagnostic Imaging Department [address] [place] [id number] Patient: MARTIN GARCIA Curtis /Age/Sex: 1970 - 49 - F Unit#: [id number] Location/Status: [facility] Mnemonic/Ordering Site: [facility] Ordering Physician: MARIA EUGENIA [facility]CER [facility] BEREAVEMENT COORDINATOR [facility] Screening Digital - 05/14/19 - 1045 History: Bilateral breast cancer screening. Technique: Bilateral digital mammography. Conventional CC and MLOprojections with tomosynthesis MLO views and computer aided detection. Findings: Comparison: Radiology and Imaging incorporated [facility] 07/04/2018 and 05/12/2017. Breast tissue is mostly fatty replaced (category a density) bilaterally(as calculated by [employer] software). There are benigncalcifications bilaterally. There is no suspicious group of microcalcification, nosuspicious mass, architectural distortion or suspicious asymmetry. Impression: No evidence of malignancy. BIRADS category 2, benign findings, 3342F 04947, 14001 Note: Patient information entered into a reminder system with a targetdue date for the next mammogram; PQRI II 7097F Dictating Physician: BOY GARZA MD Electronically Signed by: BOY GARZA MD Dic Date/Time: 05/14/19 1336 Sign date/Time: 05/14/19 1337 Nice Jennifer HOSPICE BEREAVEMENT COORDINATOR IMG BI PROCEDURES Final Result from Last 3 Months or Most Recently Relevant to Health Maintenance Insurance Sun Number [id number] [place] [id number] [employer] Care Teams Sed Special Education Teacher Relationship Specialty Start Date End Date Rosa Hanson PCP - General 11/22/23
== END 2025-02-19 14:51 | disposition home or self-care (01) ==
LOC: HO.HGI 14:20
PROVIDERS: PCP Physician Assistant; Visit Provider Internal Medicine
DX: K75.81 Nonalcoholic steatohepatitis (NASH) (principal); E11.65 Type 2 diabetes mellitus with hyperglycemia; R79.89 Other specified abnormal findings of blood chemistry; E78.5 Hyperlipidemia, unspecified
CPT/HCPCS: 99204

== ENCOUNTER 2025-02-19 14:19 | Outpatient (REF) | payer OTHER, SELFPAY ==
[2025-02-19 16:17] LABS: INTERNATIONAL NORM RATIO 1.0 (0.9-1.1); Prothrombin Time 11.9 SEC (11.2-13.5)
[2025-02-23 13:08] LABS: Liver Kidney Microsomal Ab <=20.0 U (<=20.0)
[2025-02-24 15:23] LABS: Immunoglobulin A 340 mg/dL (47-310); Immunoglobulin G 1370 mg/dL (600-1640)
[2025-02-27 09:36] LABS: Phosphatidylethanol 16:0-18:1 NEGATIVE
[2025-02-27 09:37] LABS: Phosphatidylethanol 16:0-18:2 NEGATIVE
[2025-02-27 13:48] LABS: Anti Nuclear Antibody Pattern Nuclear, Speckled; Anti Nuclear Antibody Screen POSITIVE (NEGATIVE); Anti Nuclear Antibody Titer 1:160 titer
== END 2025-02-19 14:20 | disposition home or self-care (01) ==
LOC: HO.LAB 14:19
PROVIDERS: PCP Physician Assistant; Visit Provider Internal Medicine
DX: R79.89 Other specified abnormal findings of blood chemistry (principal); K75.81 Nonalcoholic steatohepatitis (NASH); E11.65 Type 2 diabetes mellitus with hyperglycemia; E78.5 Hyperlipidemia, unspecified; Z01.84 Encounter for antibody response examination
CPT/HCPCS: 36415; 80321; 82103; 82390; 82784; 84443; 85610; 86015; 86038; 86039; 86364; 86376; 99202